=== PATIENT | female | born 1945 | race Caucasian/White ===

== ENCOUNTER 2016-09-08 09:22 | Outpatient (CLI) ==
[2014-12-14 20:33] VITALS: BMI 19.9
[2016-09-08 09:40] LABS: BILIRUBIN,URINE 3+ (NEGATIVE); KETONES,URINE Trace (NEGATIVE); LEUKOCYTE ESTERASE ,URINE 1+ (NEGATIVE); NITRITE,URINE Negative (NEGATIVE); PROTEIN,URINE 2+ (NEGATIVE); URINE, BLOOD Trace-intact (NEGATIVE)
[2016-09-08 09:50] LABS: ADD URINE MICROSCOPIC YES
[2016-09-08 09:55] LABS: BACTERIA,URINE 1+ (NOT PRESENT)
[2016-09-08 14:24] LABS: HEMATOCRIT 42.4 % (37.0-47.0); MEAN CORPUSCULAR HEMOGLOBIN 32.7 pg (27.0-31.0); MEAN CORPUSCULAR HGB CONC 35.4 (31.8-35.4); MEAN CORPUSCULAR VOLUME 92.4 fl (81.0-99.0); PLATELET COUNT 224 10^3/uL (140-440); RED BLOOD COUNT 4.59 10^6/ul (4.20-5.40); WHITE BLOOD COUNT 6.14 K/ul (4.6-10.2)
[2016-09-08 14:36] LABS: ANISOCYTOSIS NOT PRESENT (NOT PRESENT)
[2016-09-08 14:55] LABS: ALBUMIN 3.5 g/dL (3.4-5.0); ALBUMIN/GLOBULIN RATIO 0.9; ANION GAP 14.6; BILIRUBIN,TOTAL 4.32 mg/dL (0.00-1.20); BUN/CREATININE RATIO 12.17; CALCIUM 9.5 mg/dL (8.2-10.2); CREATININE 1.15 mg/dL (0.60-1.30); POTASSIUM 3.6 mmol/L (3.5-5.10); TOTAL PROTEIN 7.4 g/dL (5.8-8.1)
--- NOTE | 2016-09-08 15:02 | CT ---
EXAM: CT abdomen pelvis without contrast HISTORY: Abdominal pain most pronounced in the right lower quadrant. Patient with history of hyste rectomy and appendectomy. COMPARISON: Chest x-ray 11/29/2015 TECHNIQUE: Serial axial images of the abdomen pelvis were performed from the lung bases through the inferior pelvis without contrast. These were viewed in multiple planes. FINDINGS: Lung bases demonstrate minimal airway thickening and nodular ground-glass in the right lo wer lobe. Evaluation is limited due to lack of contrast. 0.8 cm in diameter low attenuation lesion in the alireza er is identified measuring 15 HU. Spleen is unremarkable. The adrenal glands are unremarkable. A 0.4 cm nonobstructing stone in the left kidney. The gallbladder demonstrates mild wall thickening. Small bowel in the abdomen pelvis is unremarkable. The colon demonstrates diverticulosis without di verticulitis. Urinary bladder is distended. There is degenerative disease of the spine. There is moderate to severe atherosclerotic disease. IMPRESSION: 1. There is thickening of the gallbladder wall with no calcified stone identified. Dedicated gallbl adder ultrasound is recommended to further evaluate for cholecystitis. 2. Low attenuation nonspecific lesion in the liver is present. 3. Nonobstructing left renal stone. 4. Diverticulosis without diverticulitis. 5. Moderate to severe atherosclerotic disease and degenerative disease of the spine.
== END 2016-09-08 09:23 | disposition home or self-care (01) ==
LOC: LAB 09:22
PROVIDERS: ATTEND General Practice
DX: R10.9 Unspecified abdominal pain (principal); R30.0 Dysuria; R33.9 Retention of urine, unspecified
CPT/HCPCS: 36415; 80053; 81001; 85007; 85025; 87086

== ENCOUNTER 2016-09-08 17:45 | Inpatient (IN) ==
[2016-09-08 18:11] VITALS: BMI 18.9
[2016-09-08] MEDS: D5%-1/2NS-KCL 20 MEQ/L IV SOL 1,000 ML IV SCH (20:06)
[2016-09-08 20:17] LABS: BILIRUBIN,URINE 3+ (NEGATIVE); KETONES,URINE Trace (NEGATIVE); LEUKOCYTE ESTERASE ,URINE Trace (NEGATIVE); NITRITE,URINE Negative (NEGATIVE); PH,URINE 5.5 (5-9); PROTEIN,URINE 2+ (NEGATIVE); URINE, BLOOD Trace-lysed (NEGATIVE)
[2016-09-08 20:18] LABS: ALBUMIN 3.5 g/dL (3.4-5.0); BILIRUBIN,DIRECT 3.19 mg/dL (0.00-0.30); BILIRUBIN,TOTAL 3.89 mg/dL (0.00-1.20); TOTAL PROTEIN 7.4 g/dL (5.8-8.1)
[2016-09-08 20:23] LABS: HIV INTERNAL QC INTERNAL QC VALID; HIV-1 p24 ANTIGEN SCREEN NEGATIVE (NEGATIVE); HIV-1/2 ANTIBODY SCREEN NEGATIVE (NEGATIVE)
[2016-09-08 20:23] LABS: ADD URINE MICROSCOPIC YES
[2016-09-08 20:24] LABS: BACTERIA,URINE 1+ (NOT PRESENT)
[2016-09-08 20:27] LABS: COCAIN SCREEN,URINE NEGATIVE (NEGATIVE)
--- NOTE | 2016-09-08 22:08 | DI ---
EXAM: PA and lateral views of the chest. HISTORY: Jaundice. FINDINGS: Comparison made with Chest x-ray of 11/29/2015. There is kyphosis of the thoracic spine. T he cardiac silhouette and pulmonary vasculature are within normal limits. The costophrenic angles a re clear. No infiltrate or consolidation. There is left apical scarring. Impression: No acute cardiopulmonary disease. Stable left apical scarring.
[2016-09-09 04:57] LABS: BASOPHILS # (AUTO) 0.1 K/uL (0-0.2); BASOPHILS % (AUTO) 1.2 % (0.0-3.0); EOSINOPHILS # (AUTO) 0.5 K/ul (0.0-0.7); EOSINOPHILS % (AUTO) 6.6 % (0.0-7.0); HEMATOCRIT 35.5 % (37.0-47.0); HEMOGLOBIN 12.5 g/dl (12.0-16.0); IMMATURE GRANULOCYTE % (AUTO) 0.3 % (0.0-5.0); LYMPHOCYTES # (AUTO) 3.7 K/uL (0.60-3.4); LYMPHOCYTES % (AUTO) 49.1 (10.0-50.0); MEAN CORPUSCULAR HEMOGLOBIN 32.1 pg (27.0-31.0); MEAN CORPUSCULAR HGB CONC 35.2 (31.8-35.4); MEAN CORPUSCULAR VOLUME 91.3 fl (81.0-99.0); MONOCYTES # (AUTO) 0.8 K/uL (0.4-2.0); MONOCYTES % (AUTO) 10.3 (0-10); NEUTROPHILS # (AUTO) 2.5 K/ul (2.0-6.9); NEUTROPHILS % (AUTO) 32.5; PLATELET COUNT 208 10^3/uL (140-440); RED BLOOD COUNT 3.89 10^6/ul (4.20-5.40); WHITE BLOOD COUNT 7.59 K/ul (4.6-10.2)
[2016-09-09 05:32] LABS: ALBUMIN 2.8 g/dL (3.4-5.0); ALBUMIN/GLOBULIN RATIO 0.88; ANION GAP 12.5; BILIRUBIN,TOTAL 3.55 mg/dL (0.00-1.20); BUN/CREATININE RATIO 14.6; CREATININE 0.89 mg/dL (0.60-1.30); POTASSIUM 3.5 mmol/L (3.5-5.10)
[2016-09-09] MEDS: D5%-1/2NS-KCL 20 MEQ/L IV SOL 1,000 ML IV SCH ×2 (07:42→21:18)
[2016-09-09] MEDS ORDERED: MAGNESIUM OXIDE 250 MG PO SCH (09:00)
[2016-09-09] MEDS ORDERED: NON-FORMULARY MEDICATION (Cyanocobalamin (Vitamin B-12) [Vitamin B-12] 1,000 MCG) PO SCH ×22 (09:00)
[2016-09-09] MEDS ORDERED: NON-FORMULARY MEDICATION (Calcium Carbonate/Vitamin D3 [Calcium 600-Vit D3 200 Tablet] 1 E PO SCH (09:00)
[2016-09-09] MEDS ORDERED: POTASSIUM GLUCONATE 500 MG PO SCH (09:00)
[2016-09-09] MEDS ORDERED: ZOFRAN 4 MG/2 ML IVP STA (14:24)
[2016-09-09] MEDS ORDERED: ROCEPHIN ONE (14:31)
[2016-09-09] MEDS ORDERED: SODIUM CHLORIDE 50 ML IV ONE (14:34)
[2016-09-09] MEDS: ROCEPHIN 1 GM in SODIUM CHLORIDE 50 ML IV SCH (14:34)
[2016-09-09] MEDS: ZITHROMAX 500 MG in SODIUM CHLORIDE 250 ML IV SCH (15:17)
[2016-09-09 18:48] LABS: AMYLASE 105 U/L (25-115); LIPASE 184 U/L (8-78)
[2016-09-09 18:52] LABS: PARTIAL THROMBOPLASTIN TIME 24.8 SEC (23.9-40.0); PROTHROMBIN TIME 10.4 SEC (9.3-11.0)
[2016-09-10 05:31] LABS: HEMOGLOBIN 12.6 g/dl (12.0-16.0); MEAN CORPUSCULAR HEMOGLOBIN 32.4 pg (27.0-31.0); PLATELET COUNT 222 10^3/uL (140-440); RED BLOOD COUNT 3.89 10^6/ul (4.20-5.40); WHITE BLOOD COUNT 6.72 K/ul (4.6-10.2)
[2016-09-10 05:36] LABS: ANISOCYTOSIS NOT PRESENT (NOT PRESENT)
[2016-09-10 05:55] LABS: ALBUMIN 2.7 g/dL (3.4-5.0); ALBUMIN/GLOBULIN RATIO 0.84; ANION GAP 11.6; BILIRUBIN,TOTAL 2.25 mg/dL (0.00-1.20); BUN/CREATININE RATIO 11.29; CALCIUM 8.7 mg/dL (8.2-10.2); CREATININE 0.62 mg/dL (0.60-1.30); POTASSIUM 3.6 mmol/L (3.5-5.10); TOTAL PROTEIN 5.9 g/dL (5.8-8.1)
[2016-09-10] MEDS: ROCEPHIN 1 GM in SODIUM CHLORIDE 50 ML IV SCH (08:16)
[2016-09-10] MEDS: D5%-1/2NS-KCL 20 MEQ/L IV SOL 1,000 ML IV SCH ×2 (08:16→22:03)
[2016-09-10] MEDS: ZITHROMAX 500 MG in SODIUM CHLORIDE 250 ML IV SCH (09:20)
--- NOTE | 2016-09-10 10:56 | US ---
EXAM: Abdominal ultrasound limited HISTORY: Hepatitis COMPARISON: CT abdomen pelvis 09/08/2016 TECHNIQUE: Sonographic and limited Doppler evaluation of the right upper quadrant was performed. FINDINGS: The liver is normal in echogenicity and measures 14.4 cm. There is an anechoic right hepa tic cyst measuring 0.8 x 1.0 x 1.1 cm. The portal vein is patent. The gallbladder demonstrates mild ly thickened folds with questionable polyps versus adherent sludge. The gallbladder wall measures 0 .5 cm in thickness. Common bile duct is unremarkable and measures 1.1 cm in diameter. The pancreas demonstrates a dilated pancreatic duct. There is no common duct or pancreatic duct stone identified . The right kidney measures 11.5 x 4.1 x 4.5 cm with cortex measuring 0.8%. There is no obstructive uropathy. IMPRESSION: 1. Pancreatic duct and common ducts are enlarged with no visualized stone or obstruction identified . 2. Gallbladder wall thickening and thickened folds with questionable area of polyp versus adherent sludge. Findings may represent changes from inflammation/infection versus hepatic disease were conge stive heart failure. Please correlate with acute symptomatology. 3. Anechoic right hepatic cyst. If further evaluation is clinically indicated, MRCP may be obtained.
--- NOTE | 2016-09-10 13:21 | NM ---
EXAM: Hepatobiliary imaging HISTORY: Jaundice COMPARISON: Limited abdominal ultrasound performed today shows pancreatic and common duct enlargemen t. Gallbladder wall thickening. TECHNIQUE: Patient was injected 5.3 mCi of technetium 99m Choletec intravenously. Multiple anterior scintigraphic images of the right upper quadrant region of the abdomen were obtained up to 1 hour i nterval. FINDINGS: There is normal visualization of liver and gallbladder. Proximal bile duct appears mildly dilated. There is no intrahepatic ductal dilatation. Activity is present within the small bowel l oops. IMPRESSION: Mildly dilated proximal bile duct without any intrahepatic ductal dilatation. Small bow el activity is visualized. Cystic duct is patent.
--- NOTE | 2016-09-10 14:43 | HP ---
CHIEF COMPLAINT: Color change in her urine, chills on Thursday, five days prior to presentation at the office and also . SOURCE OF HISTORY: Patient. HISTORY OF PRESENT ILLNESS: The patient claimed that she experienced chills Thursday evening and lasted for about 4 hours and needed several blankets to keep her warm. By she went to work and was able to perform her job. She again had chills during the night on . She also had noted that her urine had been changing color and now to yellow to orange. The change in urine color did bring her to the office. She also was complaining of pain in the right side of the abdomen more in the right upper quadrant. The patient indeed at the office had some tenderness. The patient appears to be jaundice in the skin, as well as the subpalate. Labs were then ordered, as well as CT scan of the abdomen and pelvis without contrast. The chemistries showed a markedly elevated transaminase, as well as Alkaline phosphatase and total bilirubin. The patient may have an obstructive type jaundice or an obstructive stage of hepatitis. This patient was advised admission to the hospital for further workup. A CT scan of the abdomen did mention some edema of the gallbladder without any stone visible. The patient denied any fever with these episodes of chills. PAST PERSONAL HISTORY: The patient had pneumonia admitted 12/14/2014. Chronic obstructive pulmonary disease, chronic tobacco use and abuse, persistent. History of low back pain, as well as both hips. Osteoporosis and kyphosis. FAMILY HISTORY: No known family diseases that are hereditary. She does not know very well the family history. MEDICATIONS: Prior to this admission Calcium plus Vitamin D one daily B12 1,000 mcg daily Magnesium Oxide 250 mg daily Potassium Gluconate 500 mg daily Tramadol 50 mg tablet three times a day as needed [place]'s Wort 150 mg capsule daily DRUG ALLERGIES: No known drug allergies. REVIEW OF SYSTEMS: CONSTITUTIONAL: The patient had chills, but no fever on last Thursday night and . The patient presented to the office on Thursday09/08/2016 and subsequently was admitted. She had some fatigue. 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 VISUAL: Denies any blurred vision, double or transient loss of vision. AUDITORY: Hearing is compromised, but is able to hear adequately. No pain and no drainage, no tinnitus. RESPIRATORY: The patient has cough, gurgling, probably from smoking and COPD. CARDIOVASCULAR: Denies any chest pain or chest oppression. GASTROINTESTINAL: Appetite appears to be maintained. No nausea or vomiting. GENITOURINARY: Changes in color, but denies any pain or frequency of urination. MUSCULOSKELETAL: The patient has lumbar pain, as well as thoracic pain, as well as hips. These are chronic problems. ENDOCRINE: Negative. HEMATOLOGIC: No history of prolonged bleeding. PSYCHIATRIC: Affect appears to be normal. PHYSICAL EXAMINATION: GENERAL: 71 year old female admitted to the hospital because of chills on Thursday evening, as well as . The patient had elevated transaminase, as well at total bilirubin and alkaline phosphatase. CT scan showed thickening of the gallbladder wall with no stones identified. Ultrasound of the gallbladder would be pursued, including a hepatobiliary scan to see if there is any obstruction. VITAL SIGNS: On admission, temperature 97.8, pulse 87, blood pressure 171/85, left and 170/77 right. Respiratory rate 18, oxygen saturation 97 on room air. 4'11", 93 pounds. BMI 11.2. HEAD: Unremarkable. FACE: Symmetrical and equal with no facial weakness. No remarkable tenderness to palpation under pressure in the frontal or maxillary sinus areas. EYES: Pupils equal/reactive to light about 3 mm in size. Sclerae and conjunctivae appears to be somewhat jaundiced. MOUTH: Dentures both upper and lower. The visual subpalate appears to be somewhat yellowish. THROAT: No inflammation, tumors or exudate. NECK: No masses. No bruit. No tenderness. No rigidity. CHEST: Kyphotic with some tenderness to palpation in the vertebral column. LUNGS: Breath sounds are heard in both sides with rales at the right lower base. The right has more diminished breath sounds compared to the left. No expiratory wheezing. HEART: Audible and regular with good tones. No murmurs. ABDOMEN: Flat, soft with tenderness in the upper quadrant more than the lower quadrant. Bowel sounds are active. There is no palpable mass in the right upper quadrant. EXTERNAL GENITALIA: Not examined. RECTAL: Not performed. LOWER EXTREMITIES: Symmetrical and equal with no significant edema in the ankles and feet. Pedal pulses are not palpable. UPPER EXTREMITIES: Symmetrical and equal. ASSESSMENT: 1. HEPATITIS, INFECTIOUS VERSUS COMMON DUCT OBSTRUCTION 2. CHRONIC TOBACCO USE AND ABUSE, PERSISTENT 3. CHRONIC OBSTRUCTIVE PULMONARY DISEASE, SECONDARY TO #2. 4. CHRONIC LUMBAR PAIN, WELL THORACIC MTDD
[2016-09-11 04:45] LABS: BASOPHILS # (AUTO) 0.1 K/uL (0-0.2); BASOPHILS % (AUTO) 1.1 % (0.0-3.0); EOSINOPHILS # (AUTO) 0.3 K/ul (0.0-0.7); EOSINOPHILS % (AUTO) 4.8 % (0.0-7.0); HEMATOCRIT 35.5 % (37.0-47.0); HEMOGLOBIN 12.7 g/dl (12.0-16.0); IMMATURE GRANULOCYTE % (AUTO) 0.2 % (0.0-5.0); LYMPHOCYTES # (AUTO) 3.1 K/uL (0.60-3.4); MEAN CORPUSCULAR HEMOGLOBIN 32.4 pg (27.0-31.0); MEAN CORPUSCULAR HGB CONC 35.8 (31.8-35.4); MEAN CORPUSCULAR VOLUME 90.6 fl (81.0-99.0); MONOCYTES # (AUTO) 0.7 K/uL (0.4-2.0); MONOCYTES % (AUTO) 9.9 (0-10); NEUTROPHILS # (AUTO) 2.5 K/ul (2.0-6.9); PLATELET COUNT 278 10^3/uL (140-440); RED BLOOD COUNT 3.92 10^6/ul (4.20-5.40); WHITE BLOOD COUNT 6.64 K/ul (4.6-10.2)
[2016-09-11 05:13] LABS: ALBUMIN 2.8 g/dL (3.4-5.0); ALBUMIN/GLOBULIN RATIO 0.85; ANION GAP 10.6; BILIRUBIN,TOTAL 1.6 mg/dL (0.00-1.20); BUN/CREATININE RATIO 12.28; CALCIUM 8.9 mg/dL (8.2-10.2); CREATININE 0.57 mg/dL (0.60-1.30); POTASSIUM 3.6 mmol/L (3.5-5.10); TOTAL PROTEIN 6.1 g/dL (5.8-8.1)
[2016-09-11] MEDS: ROCEPHIN 1 GM in SODIUM CHLORIDE 50 ML IV SCH (08:03)
[2016-09-11] MEDS: ZITHROMAX 500 MG in SODIUM CHLORIDE 250 ML IV SCH (09:37)
--- NOTE | 2016-09-11 11:19 | PN ---
DATE OF VISIT: 09/09/16 The patient, today, is alert and had a good meal, but did complain of nausea after eating her lunch. LUNGS: Her lungs has rales at the right lower base and the breath sounds are diminished more on that side. No wheezing. HEART: Audible and regular. 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 Bowel sounds are active. LOWER EXTREMITIES: Unremarkable. No tenderness in the calf muscles. VITAL SIGNS: Today at 1:36 p.m. showed a temperature of 98.2, pulse 64, blood pressure 132/74, respiratory rate 16, oxygen saturation 96 at room air. Total bilirubin is down to 3.55 from 3.89. AST 552 from 754. ALT 595 from 754. Alkaline phosphatase 580 from 690. The patient had improved somewhat and she is still afebrile. She has some nausea, but no significant increase of pain and no chills. Another blood culture will be obtained today and this patient will be placed on antibiotic consisting of Rocephin, as well as Zithromax. She is scheduled to have an ultrasound of the gallbladder tomorrow and will also schedule for a hepatobiliary scan. The scan should show whether she has a cystic duct obstruction, if not then the other reason for the yellow jaundice may be viral. We are still waiting for the results. I hope we will get some results tomorrow. The HIV is negative. I did ask her whether she had any febrile conditions prior to last Thursday and she said, "No". I also asked her if there is anybody at work that had yellow jaundice or fever and the answer was no. There was also no illness in the family. This patient's drug screen is positive for opiates, as well as Benzo and the patient does not list any medication that would give that positive test. The patient will be kept NPO from midnight for the gallbladder ultrasound and possible hepatobiliary scan and will discuss that with the radiologist after the gallbladder ultrasound. This patient will not be fed. JERED
[2016-09-11] MEDS: D5%-1/2NS-KCL 20 MEQ/L IV SOL 1,000 ML IV SCH (13:04)
[2016-09-12] MEDS: D5%-1/2NS-KCL 20 MEQ/L IV SOL 1,000 ML IV SCH ×2 (02:06→17:57)
[2016-09-12] MEDS: ROCEPHIN 1 GM in SODIUM CHLORIDE 50 ML IV SCH (09:10)
[2016-09-12] MEDS: ZITHROMAX 500 MG in SODIUM CHLORIDE 250 ML IV SCH (10:21)
[2016-09-12 13:13] LABS: ALBUMIN 2.9 g/dL (3.4-5.0); BILIRUBIN,DIRECT 0.57 mg/dL (0.00-0.30); BILIRUBIN,TOTAL 0.94 mg/dL (0.00-1.20); TOTAL PROTEIN 6.8 g/dL (5.8-8.1)
[2016-09-13 04:51] LABS: BASOPHILS # (AUTO) 0.1 K/uL (0-0.2); BASOPHILS % (AUTO) 1.7 % (0.0-3.0); EOSINOPHILS # (AUTO) 0.5 K/ul (0.0-0.7); EOSINOPHILS % (AUTO) 7.6 % (0.0-7.0); HEMATOCRIT 33.4 % (37.0-47.0); HEMOGLOBIN 11.5 g/dl (12.0-16.0); IMMATURE GRANULOCYTE % (AUTO) 0.3 % (0.0-5.0); LYMPHOCYTES # (AUTO) 2.9 K/uL (0.60-3.4); LYMPHOCYTES % (AUTO) 40.6 (10.0-50.0); MEAN CORPUSCULAR HEMOGLOBIN 32.3 pg (27.0-31.0); MEAN CORPUSCULAR HGB CONC 34.4 (31.8-35.4); MEAN CORPUSCULAR VOLUME 93.8 fl (81.0-99.0); MONOCYTES # (AUTO) 0.9 K/uL (0.4-2.0); MONOCYTES % (AUTO) 12.6 (0-10); NEUTROPHILS # (AUTO) 2.7 K/ul (2.0-6.9); NEUTROPHILS % (AUTO) 37.2; PLATELET COUNT 298 10^3/uL (140-440); RED BLOOD COUNT 3.56 10^6/ul (4.20-5.40); WHITE BLOOD COUNT 7.14 K/ul (4.6-10.2)
[2016-09-13] MEDS: D5%-1/2NS-KCL 20 MEQ/L IV SOL 1,000 ML IV SCH (04:55)
[2016-09-13 05:10] LABS: ALBUMIN 2.7 g/dL (3.4-5.0); BILIRUBIN,DIRECT 0.58 mg/dL (0.00-0.30); BILIRUBIN,TOTAL 0.92 mg/dL (0.00-1.20); TOTAL PROTEIN 5.6 g/dL (5.8-8.1)
[2016-09-13] MEDS: ROCEPHIN 1 GM in SODIUM CHLORIDE 50 ML IV SCH (08:29)
[2016-09-13 14:04] VITALS: BP 136/61; TEMP 97.6
--- NOTE | 2016-09-18 12:44 | DS ---
PATIENT IDENTIFICATION: 71 year old female was seen at the office on the day of admission complaining of her urine changing colors, yellow to brownish in color without any pain. The patient in the course of examination appears to be jaundiced and with some tenderness in the right side of the abdomen, more on the right upper quadrant. The patient was sent for CBC, plus chemistry which showed a markedly elevated total bilirubin 4.32, AST 746, ALT 755, alkaline phosphatase 711. WBC was normal. Hemoglobin and hematocrit normal. Chest x-ray showed no acute pulmonary disease. CT scan of the abdomen and pelvis without contrast showed gallbladder thickening with no calcified stones identified. Ultrasound of the gallbladder obstructing left renal stone, diverticulosis without diverticulitis and severe atherosclerotic disease. The patient was advised admission on account of the abnormal findings and the patient consented. HOSPITAL COURSE: The patient on admission was given a clear liquid diet. She also was given Dextrose 5% in 1/2 saline with 20 KCL to run at 83 cc per hour. IV was continued. The patient on the following day developed some nausea and was given Zofran one time. She had abdominal ultrasound in particular the gallbladder on 09/10/2016. Pancreatic and common bile duct was enlarged with no visualized stone or obstruction. Gallbladder wall thickening and thickened folds with questionable area of polyp versus adherent sludge. Findings may represent inflammation versus hepatic disease consider congestive heart failure. The patient also has a right hepatic cyst. Repeat liver chemistry showed decreasing total bilirubin, AST, ALT and alkaline phosphatase. PT and PTT are normal. WBC remained essentially normal. The pain or discomfort in the right side of the abdomen is decreasing and the tenderness is decreasing. The patient was placed on a full liquid diet, low fat. On the patient was given a regular diet, low fat. The hepatitis panel for A, B and C were negative. The results were discussed with the patient. The patient's vital signs remained stable and she afebrile throughout the hospital stay and this patient was given IV Rocephin, as well as Zithromax since symptoms presented as possible bacteremia because of chills on Thursday and night. The blood cultures remained negative. Urine culture also had no growth. The patient continued to improve and the pain was getting less and the patient was feeling much better the day before and the tenderness in the upper abdomen is much less. She denies any nausea or any abdominal discomfort. The patient, today 09/13/2016, is alert, afebrile. VITAL SIGNS: At 2 p.m. showed a temperature of 97.6, pulse 71, blood pressure 131/61, respiratory rate 20, oxygen saturation 96 at room air. GENERAL: Her color is good, not dyspneic, nor tachypneic. LUNGS: Clear to auscultation in both sides. HEART: Normal sinus rhythm. ABDOMEN: No remarkable tenderness. There is still some fullness in the right upper quadrant to palpation. Bowel sounds are active. LOWER EXTREMITIES: No edema. Pedal pulses are still hard to find. The total bilirubin has returned to normal since yesterday and the direct bilirubin is still slightly elevated at 158 and 0.57 yesterday. AST is 64, ALT is 210 and alkaline phosphatase is 398. Cytomegaly virus IGG antibody is greater than 10 positive, but IGM is less than 30-negative. No results of the Pedro-Caballero virus at this point. The patient is instructed to not take the [place]'s Wart and avoid taking any Tylenol for now. She may go back to work if she feels okay and she should see me this coming Thursday. I had mentioned yesterday about a referral to a surgeon for possible evaluation and the patient does not desire any surgery if it is not necessary. We will make that decision during the course of the follow up. I believe the patient's problems may have been common duct obstruction by sludge, which had probably passed through the sphincter since the hepatitis panels are negative. There is some changes in the gallbladder seemed to indicate some infection. The Hepatobiliary scan was essentially normal. FINAL DIAGNOSES: 1. HEPATITIS SECONDARY TO COMMON DUCT OBSTRUCTION WITH SPONTANEOUS RESOLUTION PROBABLE 2. CHRONIC TOBACCO USE AND ABUSE, PERSISTENT 3. CHRONIC OBSTRUCTIVE PULMONARY DISEASE 4. CHRONIC LUMBAR PAIN, WELL THORACIC 5. KYPHOSIS THORACIC SPINE PROGNOSIS: Guarded. The patient is to see me this coming Thursday and I did advise her to call the office Thursday for the time Thursday. She was further advised to come back to the emergency room if she recurrence of the problem. JERED
--- NOTE | 2016-09-18 13:20 | PN ---
DATE OF VISIT: 09/10/16 The patient, today, is alert, oriented times four, not dyspneic, nor tachypneic. The patient did undergo gallbladder ultrasound today, as well as Hepatobiliary scan. Gallbladder ultrasound showed pancreatic duct and common duct are enlarged with no visualized stone or obstruction. Gallbladder wall thickening and thickened folds, questionable area of polyp versus adherent sludge. An anechoic right hepatic cyst. Hepatobiliary scan was interpreted as mildly dilated proximal bile duct without any intrahepatic ductal dilatations. Small bowel activity is visualized. Cystic duct is patent. The radiologist mentioned a normal visualization of the liver and gallbladder. The patient denied any remarkable pain. ABDOMEN: Flat and soft with some tenderness in the right upper quadrant, but less. Bowel sounds were active. HEART: Normal sinus rhythm. I did advise the patient that the test were not indicative of any blockage in her gallbladder or common bile duct to account for the elevated liver enzymes and yellow pigment. The test results for hepatitis are still not in and will probably take another two days to get the results. I hopefully can get some results sometime tomorrow afternoon and would call the reference lab to get that. In the meantime, she will be given a full liquid low fat diet. I also mentioned that one of her enzymes that is from the pancreas is elevated and this might have something to contribute to the yellow jaundice. The BNP is normal. I told her that the enzymes are decreasing, but very slow.It appears that this patient has a viral hepatitis in the obstructive stage since the alkaline phosphatase still is elevated. The total bilirubin is now down to 2.25 from 3.89. AST 393 from 754 and ALT 533 from a high of 754. It was also lower yesterday and much lower today. The alkaline phosphatase is down to 544 from 690 and then 580. We are awaiting results of the hepatitis panel. [facility]
--- NOTE | 2016-09-18 13:50 | PN ---
DATE OF VISIT: 09/11/16 The patient was seen in the evening about 6 p.m. The patient was alert and claims that her abdomen is feeling much better and she better. The patient is alert and oriented and does not appear to be ill and not dyspneic, nor tachypneic. LUNGS: Clear to auscultation, although diminished. The patient has kyphosis. HEART: Normal sinus rhythm. ABDOMEN: Soft with no significant tenderness. The tenderness before is much less and bowel sounds are active. LOWER EXTREMITIES: No tenderness in the calf muscles. VITAL SIGNS: At 2 p.m. on 09/11/2016 showed a temperature of 98.4, oral. Pulse 61, blood pressure 152/58, respiratory rate 20, oxygen saturation 94 at room air. The WBC is normal. The MCH and MCHC is elevated. Electrolytes normal. E GFR 105, total bilirubin 1.60. AST 205, ALT 408, alkaline phosphatase 478. All of these are lower from initial determination. Lipase is down to 81, near normal, upper normal 78. Amylase normal. The hepatitis C is still pending at this time. The A and B were negative. MTDD
--- NOTE | 2016-09-18 14:04 | PN ---
DATE OF VISIT: 09/12/16 The patient, today, is alert and feeling better. VITAL SIGNS: At 2 p.m. showed a temperature of 98.1 and the patient had been afebrile throughout her hospital stay. Pulse 78, blood pressure 142/53, respiratory rate 18, oxygen saturation 98 at room air. The liver panel now shows a normal total bilirubin at 0.94, direct is still slightly elevated at 0.57 with a normal 0.30. AST is now 96 from 754. ALT 277 from 754. Alkaline phosphatase 48 from 690. The hepatitis A, B and C are negative. In retrospect, this patient may have had common duct obstruction by sludge which was released spontaneously. The abdominal ultrasound showed pancreatic duct and common ducts are enlarged with nonvisualized stone or obstruction identified. Gallbladder wall thickening and thickened folds with questionable area of polyp versus adherence sludge. Findings may be due to inflammation versus hepatic disease vs congestive heart failure with hepatic disease. Small right hepatic cyst. The patient's BNP was normal, so it is unlikely that she has congestive heart failure, more so that her lungs are clear and she is not dyspneic, nor tachypneic. Gathering the evidence together and the findings, this patient may have had an obstruction of the common duct secondary to sludge which was either excreted and showed improvement of the hepatitis. I ordered Cytomegaly virus plus Pedro-Caballero to see if there is any possibility that these two viruses has done the liver problems. This patient probably would be referred to a general surgeon for possible cholecystectomy and cholangiography. She might benefit with an endoscopic retrograde sphincterotomy if there are no stones. We will discuss that with the patient. We will continue the Rocephin until tomorrow and see. The Zithromycin will be discontinued today. MTDD
== END 2016-09-13 15:00 | disposition home or self-care (01) | DRG 445 ==
LOC: MEDSURG B 17:45
PROVIDERS: ADMIT General Practice; ATTEND General Practice
DX: K83.1 Obstruction of bile duct (principal); B17.9 Acute viral hepatitis, unspecified; K76.89 Other specified diseases of liver; J44.9 Chronic obstructive pulmonary disease, unspecified; G89.29 Other chronic pain; M54.5 Low back pain; M54.6 Pain in thoracic spine; M40.204 Unspecified kyphosis, thoracic region; F11.90 Opioid use, unspecified, uncomplicated; F15.90 Other stimulant use, unspecified, uncomplicated; F17.200 Nicotine dependence, unspecified, uncomplicated; R10.9 Unspecified abdominal pain; R30.0 Dysuria; R33.9 Retention of urine, unspecified; Z79.899 Other long term (current) drug therapy
CPT/HCPCS: 36415; 80053; 80074; 80076; 80306; 81001; 82150; 83690; 83880; 84145; 85007; 85025; 85610; 85730; 86644; 86645; 86663; 86664; 87040; 87086; 93005; 93010

== ENCOUNTER 2016-09-16 15:45 | Outpatient (CLI) ==
[2016-09-16 18:02] LABS: ALBUMIN 3.4 g/dL (3.4-5.0); BILIRUBIN,DIRECT 0.51 mg/dL (0.00-0.30); BILIRUBIN,TOTAL 0.68 mg/dL (0.00-1.20)
== END 2016-09-16 15:46 | disposition home or self-care (01) ==
LOC: LAB 15:45
PROVIDERS: ATTEND General Practice
DX: R74.8 Abnormal levels of other serum enzymes (principal); R74.0 Nonspecific elevation of levels of transaminase and lactic acid dehydrogenase [LDH]
CPT/HCPCS: 36415; 80076

== ENCOUNTER 2016-10-03 08:36 | Outpatient (CLI) ==
[2016-10-03 12:48] LABS: BASOPHILS # (AUTO) 0.1 K/uL (0-0.2); BASOPHILS % (AUTO) 1.4 % (0.0-3.0); EOSINOPHILS # (AUTO) 0.3 K/ul (0.0-0.7); EOSINOPHILS % (AUTO) 5.3 % (0.0-7.0); HEMATOCRIT 36.6 % (37.0-47.0); HEMOGLOBIN 12.3 g/dl (12.0-16.0); IMMATURE GRANULOCYTE % (AUTO) 0.2 % (0.0-5.0); LYMPHOCYTES # (AUTO) 2.1 K/uL (0.60-3.4); LYMPHOCYTES % (AUTO) 35.6 (10.0-50.0); MEAN CORPUSCULAR HEMOGLOBIN 32.1 pg (27.0-31.0); MEAN CORPUSCULAR HGB CONC 33.6 (31.8-35.4); MEAN CORPUSCULAR VOLUME 95.6 fl (81.0-99.0); MONOCYTES # (AUTO) 0.7 K/uL (0.4-2.0); MONOCYTES % (AUTO) 11.7 (0-10); NEUTROPHILS # (AUTO) 2.7 K/ul (2.0-6.9); NEUTROPHILS % (AUTO) 45.8; PLATELET COUNT 312 10^3/uL (140-440); RED BLOOD COUNT 3.83 10^6/ul (4.20-5.40); WHITE BLOOD COUNT 5.81 K/ul (4.6-10.2)
[2016-10-03 13:05] LABS: BILIRUBIN,URINE Negative (NEGATIVE); KETONES,URINE Negative (NEGATIVE); LEUKOCYTE ESTERASE ,URINE Trace (NEGATIVE); NITRITE,URINE Negative (NEGATIVE); PH,URINE 6.5 (5-9); PROTEIN,URINE Negative (NEGATIVE); URINE, BLOOD Negative (NEGATIVE)
[2016-10-03 13:07] LABS: ALBUMIN 3.5 g/dL (3.4-5.0); ALBUMIN/GLOBULIN RATIO 1.03; ANION GAP 16.7; BILIRUBIN,TOTAL 0.59 mg/dL (0.00-1.20); BUN/CREATININE RATIO 8.45; CALCIUM 9.7 mg/dL (8.2-10.2); CREATININE 0.71 mg/dL (0.60-1.30); POTASSIUM 3.7 mmol/L (3.5-5.10); TOTAL PROTEIN 6.9 g/dL (5.8-8.1)
[2016-10-03 13:14] LABS: ADD URINE MICROSCOPIC YES
== END 2016-10-03 08:37 | disposition home or self-care (01) ==
LOC: LAB 08:36
PROVIDERS: ATTEND General Practice
DX: R09.89 Other specified symptoms and signs involving the circulatory and respiratory systems (principal); K21.9 Gastro-esophageal reflux disease without esophagitis; E55.9 Vitamin D deficiency, unspecified; Z79.899 Other long term (current) drug therapy
CPT/HCPCS: 36415; 80053; 81001; 85025

== ENCOUNTER 2016-10-06 16:31 | Outpatient (CLI) | END 2016-10-06 16:32 | disposition home or self-care (01) | LOC: LAB 16:31 | PROVIDERS: ATTEND General Practice | DX: R76.0 Raised antibody titer (principal) | CPT/HCPCS: 36415; 86664 ==

== ENCOUNTER 2016-12-05 13:27 | Outpatient (CLI) ==
[2016-12-05 13:39] LABS: BASOPHILS # (AUTO) 0.1 K/uL (0-0.2); BASOPHILS % (AUTO) 1.5 % (0.0-3.0); EOSINOPHILS # (AUTO) 0.3 K/ul (0.0-0.7); EOSINOPHILS % (AUTO) 4.1 % (0.0-7.0); HEMATOCRIT 37.2 % (37.0-47.0); HEMOGLOBIN 12.6 g/dl (12.0-16.0); IMMATURE GRANULOCYTE % (AUTO) 0.3 % (0.0-5.0); LYMPHOCYTES # (AUTO) 2.1 K/uL (0.60-3.4); LYMPHOCYTES % (AUTO) 34.6 (10.0-50.0); MEAN CORPUSCULAR HEMOGLOBIN 33.5 pg (27.0-31.0); MEAN CORPUSCULAR HGB CONC 33.9 (31.8-35.4); MEAN CORPUSCULAR VOLUME 98.9 fl (81.0-99.0); MONOCYTES # (AUTO) 0.8 K/uL (0.4-2.0); MONOCYTES % (AUTO) 13.8 (0-10); NEUTROPHILS # (AUTO) 2.8 K/ul (2.0-6.9); NEUTROPHILS % (AUTO) 45.7; PLATELET COUNT 295 10^3/uL (140-440); RED BLOOD COUNT 3.76 10^6/ul (4.20-5.40)
[2016-12-05 13:55] LABS: ALBUMIN 3.6 g/dL (3.4-5.0); ALBUMIN/GLOBULIN RATIO 1.03; ANION GAP 15.8; BILIRUBIN,TOTAL 0.21 mg/dL (0.00-1.20); BUN/CREATININE RATIO 14.86; CALCIUM 9.6 mg/dL (8.2-10.2); CREATININE 0.74 mg/dL (0.60-1.30); POTASSIUM 3.8 mmol/L (3.5-5.10); TOTAL PROTEIN 7.1 g/dL (5.8-8.1)
[2016-12-05 14:21] LABS: BILIRUBIN,URINE Negative (NEGATIVE); KETONES,URINE Negative (NEGATIVE); LEUKOCYTE ESTERASE ,URINE Negative (NEGATIVE); NITRITE,URINE Negative (NEGATIVE); PROTEIN,URINE Negative (NEGATIVE); URINE, BLOOD Negative (NEGATIVE)
[2016-12-05 14:24] LABS: ADD URINE MICROSCOPIC NO
== END 2016-12-05 13:28 | disposition home or self-care (01) ==
LOC: LAB 13:27
PROVIDERS: ATTEND General Practice
DX: R76.0 Raised antibody titer (principal); E55.9 Vitamin D deficiency, unspecified; K21.9 Gastro-esophageal reflux disease without esophagitis; Z79.899 Other long term (current) drug therapy
CPT/HCPCS: 36415; 80053; 81001; 85025

== ENCOUNTER 2017-01-30 17:10 | Inpatient (IN) ==
[2017-01-30] MEDS ORDERED: NORCO 10-325 PO STA (17:32)
[2017-01-30 17:57] LABS: ADD URINE MICROSCOPIC NO; BILIRUBIN,URINE Negative (NEGATIVE); KETONES,URINE Trace (NEGATIVE); LEUKOCYTE ESTERASE ,URINE Negative (NEGATIVE); NITRITE,URINE Negative (NEGATIVE); PH,URINE 5.5 (5-9); PROTEIN,URINE Negative (NEGATIVE); URINE, BLOOD Negative (NEGATIVE)
[2017-01-30 18:12] LABS: ALBUMIN 3.5 g/dL (3.4-5.0); ALBUMIN/GLOBULIN RATIO 0.95; ANION GAP 14.6; BILIRUBIN,TOTAL 0.22 mg/dL (0.00-1.20); BUN/CREATININE RATIO 20.63; CREATININE 1.26 mg/dL (0.60-1.30); POTASSIUM 4.6 mmol/L (3.5-5.10); TOTAL PROTEIN 7.2 g/dL (5.8-8.1)
--- NOTE | 2017-01-30 18:17 | ED.PDOC ---
General ED Provider: Dr. LYNN COHEN Chief Complaint: Back Pain Stated Complaint: RIGHT FLANK PAIN Time Seen by Physician: 17:17 (3 DAYS RIGHT FLANK PAIN MINIMAL DYSURIA NO BLOOD IN URINE) Mode of Arrival: Walk-In Information Source: Patient Exam Limitations: No limitations [facility] Nursing and Triage Documentation Reviewed and Agree: Yes Musculoskeletal Complaint Exam - Back Pain Complaint/Exam Mechanism of Injury: Reports: No known trauma Onset/Duration: 3 DAYS Symptoms Are: Still present Timing: Constant Episodes Lasting: Days Initial Severity: Mild Current Severity: Mild Location: Reports: Discrete Character: Reports: Aching Aggravating: Reports: None Alleviating: Reports: None Associated Signs and Symptoms: Reports: Flank pain (RIGHT). Denies: Swelling, Redness, Bruising, Fever, Weakness, Numbness, Tingling, Abdominal pain, Bladder incontinence, Bowel incontinence, Weight loss, Pain with weight bearing Related History: Reports: Similar episode TAD Risk Factors: Reports: None AAA Risk Factors: Reports: None Cauda Equina Risk Factors: Reports: None Epidural Abcess Risk Factors: Reports: None Related Surgical History: Reports: None Focal Tenderness: No Paraspinal Muscle Tenderness: No Paraspinal Muscle Spasm: No Scoliosis: No Lordosis: No Kyphosis: No SLR Test: Right Negative, Left Negative Hip Motion Testing Pain: Right Negative, Left Negative Focal Weakness: Present: None Focal Sensory Loss: Present: None Gait: Present: Normal Differential Diagnoses: Strain, Sprain Review of Systems - Review Of Systems Constitutional: Reports: No symptoms Eyes: Reports: No symptoms Ears, Nose, Mouth, Throat: Reports: No symptoms Respiratory: Reports: No symptoms Cardiac: Reports: No symptoms GI: Reports: No symptoms : Reports: Dysuria, Flank pain (RIGHT) Musculoskeletal: Reports: No symptoms Skin: Reports: No symptoms Neurological: Reports: No symptoms Endocrine: Reports: No symptoms Hematologic/Lymphatic: Reports: No symptoms All Other Systems: Reviewed and Negative Past Medical History - Past Medical History Previously Healthy: Yes Endocrine: Reports: None Cardiovascular: Reports: None Respiratory: Reports: Pneumonia Hematological: Reports: None Gastrointestinal: Reports: None Genitourinary: Reports: None Neuro/Psych: Reports: None Musculoskeletal: Reports: None Cancer: Reports: None Last Menstrual Period: N/A - Surgical History General Surgical History: Reports: None - Family History Family History: Reports: Unknown - Social History Smoking Status: Current every day smoker, Heavy tobacco smoker Hx Substance Use: No Alcohol Screening: None - Immunizations Tetanus Shot up to Date: Yes Physical Exam - Physical Exam Appearance: Well-appearing, No pain distress, Well-nourished Eyes: RUSLAN, EOMI, Conjunctiva clear ENT: Ears normal, Nose normal, Oropharynx normal Respiratory: Airway patent, Breath sounds clear, Breath sounds equal, Respirations nonlabored Cardiovascular: RRR, Pulses normal, No rub, No murmur GI/: Soft, Nontender, No masses, Bowel sounds normal, No Organomegaly Musculoskeletal: Normal strength, ROM intact, No edema, No calf tenderness Skin: Warm, Dry, Normal color Neurological: Sensation intact, Motor intact, Reflexes intact, Cranial nerves intact, Alert, Oriented Psychiatric: Affect appropriate, Mood appropriate Critical Care Note - Critical Care Note Total Time (mins): 0 Course - Course Hematology/Chemistry: 01/30/17 17:50 Orders, Labs, Meds: Lab Review 01/30/17 01/30/17 17:31 17:50 Sodium 139 Potassium 4.6 Chloride 102 Carbon Dioxide 27 Anion Gap 14.6 BUN 26 H Creatinine 1.26 Estimated GFR (MDRD) 42.00 BUN/Creatinine Ratio 20.63 Glucose 109 Calcium 10.0 Total Bilirubin 0.22 AST 20 ALT 15 Alkaline Phosphatase 71 Total Protein 7.2 Albumin 3.5 Globulin 3.7 Albumin/Globulin Ratio 0.95 Urine Color Yellow Urine Clarity Clear Urine pH 5.5 Ur Specific [place] 1.020 Urine Protein Negative Urine Glucose (UA) Negative Urine Ketones Trace Urine Blood Negative Urine Nitrite Negative Urine Bilirubin Negative Urine Urobilinogen 0.2 Ur Leukocyte Esterase Negative Orders Category Date Time Status COMPREHENSIVE METABOLIC PANEL Stat LAB 01/30/17 17:50 Completed URINALYSIS C & S IF INDICATED Stat LAB 01/30/17 17:31 Completed Hydrocodone Bit/Acetaminophen [[place] 10-325] MEDS 01/30/17 17:32 Discontinued 1 tab PO ONCE STA CT ABD/PEL WO RENAL STONE PROT Stat RADS 01/30/17 17:32 Taken Medications Discontinued Medications Generic Name Dose Route Start Last Admin Trade Name Freq PRN Reason Stop Dose Admin Acetaminophen/Hydrocodone Bitart 1 tab 01/30/17 17:32 01/30/17 18:01 [place] 10-325 PO 01/30/17 17:33 1 tab ONCE STA Administration Vital Signs: Temp Pulse Resp BP Pulse Ox 01/30/17 17:11 100.9 F H 94 H 20 107/59 L 94 L Departure - Departure Time of Disposition: 19:00 Disposition: HOME SELF-CARE Discharge Problem: Backache Instructions: Low Back Strain (ED), Acute Low Back Pain (ED), Arthralgia (ED), Flank Pain (ED), Back Pain (ED) Condition: Good Pt referred to PMD for follow-up: Yes Additional Instructions: Please call your Family Physician as soon as possible to schedule a follow-up appointment. Prescriptions: Hydrocodone/Acetaminophen [[place] 10-325 Tablet] 1 each PO Q8HR #12 tablet Allergies/Adverse Reactions: Allergies No Known Allergies Allergy (Unverified 12/09/16 15:48) Home Medications: Ambulatory Orders Calcium Carbonate/Vitamin D3 [Calcium 600-Vit D3 200 Tablet] 1 each PO DAILY tab-cap 04/19/15 Cyanocobalamin (Vitamin B-12) [Vitamin B-12] 1,000 mcg PO DAILY 05/08/15 Magnesium Oxide [Magnesium] 250 mg PO DAILY 05/08/15 Potassium Gluconate 500 mg PO DAILY 05/08/15 Hydrocodone/Acetaminophen [[place] 10-325 Tablet] 1 each PO Q8HR #12 tablet Disposition Discussed With: Patient
[2017-01-30 18:24] LABS: BASOPHILS # (AUTO) 0.1 K/uL (0-0.2); BASOPHILS % (AUTO) 0.3 % (0.0-3.0); EOSINOPHILS % (AUTO) 0.2 % (0.0-7.0); HEMATOCRIT 36.1 % (37.0-47.0); HEMOGLOBIN 12.4 g/dl (12.0-16.0); IMMATURE GRANULOCYTE % (AUTO) 0.8 % (0.0-5.0); LYMPHOCYTES # (AUTO) 1.2 K/uL (0.60-3.4); MEAN CORPUSCULAR HEMOGLOBIN 32.5 pg (27.0-31.0); MEAN CORPUSCULAR HGB CONC 34.3 (31.8-35.4); MEAN CORPUSCULAR VOLUME 94.8 fl (81.0-99.0); MONOCYTES # (AUTO) 1.1 K/uL (0.4-2.0); MONOCYTES % (AUTO) 5.2 (0-10); NEUTROPHILS # (AUTO) 17.8 K/ul (2.0-6.9); NEUTROPHILS % (AUTO) 87.5; PLATELET COUNT 291 10^3/uL (140-440); RED BLOOD COUNT 3.81 10^6/ul (4.20-5.40); WHITE BLOOD COUNT 20.39 K/ul (4.6-10.2)
[2017-01-30] MEDS ORDERED: ROCEPHIN IM STA (18:40)
[2017-01-30] MEDS ORDERED: LIDOCAINE HCL 1% SDV SUBCUT STA (18:40)
--- NOTE | 2017-01-30 18:44 | CT ---
EXAM: Noncontrast CT of the abdomen and pelvis HISTORY: Pain COMPARISON: 09/08/2016 TECHNIQUE: Noncontrast CT of the abdomen and pelvis FINDINGS: Right lower lobe patchy consolidation is present. No renal calculi are identified. No right hydronephrosis is seen. No proximal to mid right ureteral calculi identified. The distal right ureter is obscured. A left renal nonobstructing calculus vers us vascular calcification is again seen. No left hydronephrosis is identified. No proximal to mid l eft ureteral calculi are seen. The distal left ureter is obscured. Noncontrast technique limits evaluation of the abdominal viscera. The liver is borderline enlarged at measures 18.3 cm craniocaudal. A 1.2 cm left hepatic lobe probable cyst is again seen. The gallblad jesus is mildly distended. No pericholecystic inflammatory changes are seen. There is mild dilation of the intrahepatic bile ducts. Common bile duct is dilated to 1.3 cm. A splenic calcified granuloma is seen. The unenhanced adrenals are unremarkable. The pancreas appears grossly unremarkable. There is a stable left renal 6 mm hyperdensity, too small to characterize but suggestive of a hemorrhagic cyst. A paucity of abdominal fat somewhat limits evaluation of bowel. Focal debris and gas is seen at the anterior aspect of the second portion of the duodenum measuring 2.0 x 3.0 cm, more prominent than in the previous exam. No abnormal small bowel dilation is seen. Diverticulosis is seen and there is mild wall thickening of the junction of the descending colon and sigmoid colon without gross adjacent inf lammatory changes. There is moderate to large ascending and transverse colonic stool. The appendix is not definitely identified. There is marked calcified atherosclerotic plaque of the aorta with prominent luminal stenosis. There is prominent calcified plaque of the branches of the aorta. No free air or free fluid is seen. Degen erative changes of the spine are noted. IMPRESSION: Right lower lobe pneumonia. No right renal calculi. Left renal calculus versus vascular calcification. No proximal to mid urete ral calculi identified. Obscuration of the distal ureters. No hydronephrosis. Distended gallbladder. Dilated intrahepatic and extrahepatic bile ducts of uncertain etiology. Furth er evaluation is recommended. Focal gas and debris anterior to the second portion of the duodenum, favored to represent increased d istension of a gastric diverticulum. CT with IV and oral is recommended to exclude less likely etiol ogies. Moderate to large colonic stool burden. Diverticulosis. Mild wall thickening of the junction of the descending colon and sigmoid colon is lik nathaniel secondary to underdistension. Mild diverticulitis would be difficult to completely exclude. Extensive atherosclerosis including prominent stenosis of the abdominal aorta.
[2017-01-30] MEDS ORDERED: SOLU-MEDROL 125 MG IVP STA (18:51)
[2017-01-30] MEDS ORDERED: ROCEPHIN 1 GM in SODIUM CHLORIDE 50 ML IV STA (18:53)
[2017-01-30] MEDS ORDERED: ROCEPHIN ONE (19:22)
[2017-01-30 19:24] LABS: ABG PCO2 38.9 mmHg (35-45); ABG PH 7.415 (7.35-7.45)
[2017-01-30 19:25] LABS: ABG BASE EXCESS 0 (-2.0-2.0); ABG HCO3 24.9 (22.0-26.0); ABG TCO2 26 (22.0-28.0)
[2017-01-30] MEDS: SODIUM CHLORIDE 1,000 ML IV SCH ×2 (19:34→20:36)
--- NOTE | 2017-01-30 19:50 | DI ---
Exam: Two x-rays of the chest. Comparison: 09/08/2016. Reason for exam: Pain. FINDINGS: No pneumothorax or pleural effusion. Air space consolidation is seen in the right lower l obe best on the lateral view. The cardiac silhouette is not enlarged. The imaged osseous structures appear grossly unremarkable without acute fracture. There is exaggeration of the thoracic kyphotic curve. Impression: Airspace consolidation in the right lung base consistent with pneumonia or atelectasis. Imaging findi ngs correlate with the CT performed on the same day.
[2017-01-30 20:21] VITALS: BMI 17.9
[2017-01-30] MEDS: SOLU-MEDROL 40 MG IVP SCH (22:15)
[2017-01-30] MEDS ORDERED: DUONEB NEB ONE (23:25)
[2017-01-30] MEDS: DUONEB NEB SCH (23:25)
[2017-01-31] MEDS: DUONEB NEB SCH ×4 (05:19→22:59)
[2017-01-31 06:29] LABS: BASOPHILS % (AUTO) 0.2 % (0.0-3.0); HEMATOCRIT 32.9 % (37.0-47.0); HEMOGLOBIN 11.3 g/dl (12.0-16.0); IMMATURE GRANULOCYTE % (AUTO) 1.8 % (0.0-5.0); LYMPHOCYTES # (AUTO) 1.1 K/uL (0.60-3.4); LYMPHOCYTES % (AUTO) 4.9 (10.0-50.0); MEAN CORPUSCULAR HEMOGLOBIN 32.5 pg (27.0-31.0); MEAN CORPUSCULAR HGB CONC 34.3 (31.8-35.4); MEAN CORPUSCULAR VOLUME 94.5 fl (81.0-99.0); MONOCYTES # (AUTO) 0.3 K/uL (0.4-2.0); MONOCYTES % (AUTO) 1.2 (0-10); NEUTROPHILS # (AUTO) 20.1 K/ul (2.0-6.9); NEUTROPHILS % (AUTO) 91.9; PLATELET COUNT 243 10^3/uL (140-440); RED BLOOD COUNT 3.48 10^6/ul (4.20-5.40)
[2017-01-31 06:30] LABS: WHITE BLOOD COUNT 21.87 K/ul (4.6-10.2)
[2017-01-31 06:51] LABS: ALBUMIN 2.8 g/dL (3.4-5.0); ALBUMIN/GLOBULIN RATIO 0.85; ANION GAP 11.2; BILIRUBIN,TOTAL 0.29 mg/dL (0.00-1.20); BUN/CREATININE RATIO 24.39; CALCIUM 8.9 mg/dL (8.2-10.2); CREATININE 0.82 mg/dL (0.60-1.30); POTASSIUM 4.2 mmol/L (3.5-5.10); TOTAL PROTEIN 6.1 g/dL (5.8-8.1)
[2017-01-31] MEDS: SOLU-MEDROL 40 MG IVP SCH ×2 (08:46→21:08)
[2017-01-31] MEDS: POTASSIUM GLUCONATE 500 MG PO SCH (08:46)
[2017-01-31] MEDS: ZESTRIL PO SCH ×2 (08:46→08:48)
[2017-01-31] MEDS: SODIUM CHLORIDE 1,000 ML IV SCH ×2 (10:10→23:36)
[2017-01-31] MEDS ORDERED: ROCEPHIN ONE (17:24)
[2017-01-31] MEDS: TYLENOL PO PRN (17:29)
[2017-01-31] MEDS ORDERED: SODIUM CHLORIDE 50 ML IV ONE (17:30)
[2017-01-31] MEDS: ROCEPHIN 1 GM in SODIUM CHLORIDE 50 ML IV SCH (17:30)
[2017-01-31] MEDS: LEXAPRO PO SCH (21:08)
[2017-02-01] MEDS: DUONEB NEB SCH ×4 (05:25→23:19)
[2017-02-01 06:17] LABS: BASOPHILS % (AUTO) 0.1 % (0.0-3.0); HEMATOCRIT 29.7 % (37.0-47.0); IMMATURE GRANULOCYTE % (AUTO) 3.9 % (0.0-5.0); LYMPHOCYTES # (AUTO) 0.8 K/uL (0.60-3.4); LYMPHOCYTES % (AUTO) 3.4 (10.0-50.0); MEAN CORPUSCULAR HEMOGLOBIN 32.1 pg (27.0-31.0); MEAN CORPUSCULAR HGB CONC 33.7 (31.8-35.4); MEAN CORPUSCULAR VOLUME 95.2 fl (81.0-99.0); MONOCYTES # (AUTO) 0.8 K/uL (0.4-2.0); MONOCYTES % (AUTO) 3.5 (0-10); NEUTROPHILS # (AUTO) 20.2 K/ul (2.0-6.9); NEUTROPHILS % (AUTO) 89.1; PLATELET COUNT 233 10^3/uL (140-440); RED BLOOD COUNT 3.12 10^6/ul (4.20-5.40); WHITE BLOOD COUNT 22.69 K/ul (4.6-10.2)
[2017-02-01 06:35] LABS: ALBUMIN 2.4 g/dL (3.4-5.0); ALBUMIN/GLOBULIN RATIO 0.73; ANION GAP 11.3; BILIRUBIN,TOTAL 0.1 mg/dL (0.00-1.20); BUN/CREATININE RATIO 22.38; CALCIUM 8.5 mg/dL (8.2-10.2); CREATININE 0.67 mg/dL (0.60-1.30); POTASSIUM 4.3 mmol/L (3.5-5.10); TOTAL PROTEIN 5.7 g/dL (5.8-8.1)
[2017-02-01] MEDS: ROCEPHIN 1 GM in SODIUM CHLORIDE 50 ML IV SCH (10:03)
[2017-02-01] MEDS: POTASSIUM GLUCONATE 500 MG PO SCH (10:03)
[2017-02-01] MEDS: SOLU-MEDROL 40 MG IVP SCH ×2 (10:03→21:23)
[2017-02-01] MEDS: SODIUM CHLORIDE 1,000 ML IV SCH (11:00)
[2017-02-01] MEDS: TYLENOL PO PRN (18:59)
[2017-02-01] MEDS: LEXAPRO PO SCH (21:16)
[2017-02-02] MEDS: DUONEB NEB SCH ×4 (05:23→22:59)
[2017-02-02 05:31] LABS: BASOPHILS % (AUTO) 0.1 % (0.0-3.0); HEMATOCRIT 29.8 % (37.0-47.0); HEMOGLOBIN 10.1 g/dl (12.0-16.0); IMMATURE GRANULOCYTE % (AUTO) 2.8 % (0.0-5.0); LYMPHOCYTES % (AUTO) 6.5 (10.0-50.0); MEAN CORPUSCULAR HEMOGLOBIN 32.5 pg (27.0-31.0); MEAN CORPUSCULAR HGB CONC 33.9 (31.8-35.4); MEAN CORPUSCULAR VOLUME 95.8 fl (81.0-99.0); MONOCYTES # (AUTO) 0.6 K/uL (0.4-2.0); MONOCYTES % (AUTO) 3.5 (0-10); NEUTROPHILS # (AUTO) 13.6 K/ul (2.0-6.9); NEUTROPHILS % (AUTO) 87.1; PLATELET COUNT 238 10^3/uL (140-440); RED BLOOD COUNT 3.11 10^6/ul (4.20-5.40); WHITE BLOOD COUNT 15.59 K/ul (4.6-10.2)
[2017-02-02 05:45] LABS: ALANINE AMINOTRANSFERASE 38 U/L (12-78); ALBUMIN 2.4 g/dL (3.4-5.0); ALBUMIN/GLOBULIN RATIO 0.71; ALKALINE PHOSPHATASE 59 U/L (53-141); ANION GAP 11.4; ASPARTATE AMINO TRANSFERASE 32 U/L (15-37); BLOOD UREA NITROGEN 11 mg/dL (7-18); BUN/CREATININE RATIO 16.92; CALCIUM 8.9 mg/dL (8.2-10.2); CARBON DIOXIDE 23 mmol/L (23-31); CHLORIDE 111 mmol/L (98-107); CREATININE 0.65 mg/dL (0.60-1.30); GLUCOSE 148 mg/dL (82-115); POTASSIUM 4.4 mmol/L (3.5-5.10); SODIUM 141 mmol/L (136-145); TOTAL PROTEIN 5.8 g/dL (5.8-8.1)
[2017-02-02 05:46] LABS: BILIRUBIN,TOTAL < 0.10 mg/dL (0.00-1.20)
[2017-02-02] MEDS: ROCEPHIN 1 GM in SODIUM CHLORIDE 50 ML IV SCH (08:34)
[2017-02-02] MEDS: POTASSIUM GLUCONATE 500 MG PO SCH (08:35)
[2017-02-02] MEDS: SOLU-MEDROL 40 MG IVP SCH ×3 (08:49→20:57)
--- NOTE | 2017-02-02 10:46 | DI ---
EXAM: Chest two view, frontal and lateral views. HISTORY: Right lower lobe consolidation. Follow-up. COMPARISON: 01/30/2017. FINDINGS: Heart size is normal. Atherosclerotic calcifications present. Right lower lobe consolida tion again noted. There is blunting of the right costophrenic angle which is new. Lungs are otherwi se clear without pneumothorax. Degenerative changes seen in the spine. IMPRESSION: Stable right lower lobe consolidation with new small right pleural effusion. Follow-up in 4-6 weeks i s recommended.
--- NOTE | 2017-02-02 10:55 | PCM.PROG ---
Attending Provider: ATTENDING PROVIDER: Dr. DEANA DURBIN This patient is seen with Leigh Garsia, Nurse Practitioner. DATE OF SERVICE: 02/02/17 SUBJECTIVE: This 71 year old WHITE/ F was hospitalized 01/30/17. The patient is sitting in chair, alert. She states she is coughing some. No fever. She has been eating well. REVIEW OF SYSTEMS: CONSTITUTIONAL: No night sweats. No fatigue, malaise, lethargy. No fever or chills. HEENT: Eyes: No visual changes. No eye pain. No eye discharge. ENT: No runny nose. No epistaxis. No sinus pain. No odynophagia. No congestion. RESPIRATORY: Cough and congestion. No hemoptysis. No shortness of breath. CARDIOVASCULAR: No angina symptoms. No CHF symptoms. No atypical chest pain for CAD. No palpitations. No orthopnea.. GASTROINTESTINAL: No abdominal pain. No nausea or vomiting. No diarrhea or constipation. No hematemesis. No hematochezia. GENITOURINARY: No urgency. No frequency. No dysuria. No hematuria. No obstructive symptoms. No discharge. No pain. No significant abnormal bleeding. MUSCULOSKELETAL: No musculoskeletal pain; no joint swelling. NEUROLOGICAL: Awake, alert, oriented to time, place and person. No headache. No neck pain. No syncope. No seizures. No dizziness. PSYCHIATRIC: Not anxious. No depression. No suicidal thoughts. No homicidal thoughts. SKIN: No rash. No lesions. No wounds. ENDOCRINE: No unexplained weight loss. No weight gain. HEMATOLOGIC/LYMPHATIC: No anemia. No purpura. No petechiae. No prolonged or excessive bleeding. No palpable lymph nodes. PHYSICAL EXAMINATION: GENERAL: The patient is awake, alert and oriented, sitting in chair in no distress. VITAL SIGNS: Temperature 97.7 F, Pulse 80, Respiratory Rate 15, BP 141/67, Pulse Ox 98% HEENT: Head normocephalic, atraumatic. Eyes: Extraocular muscles are intact. Pupils are equal, round and reactive to light and accommodation. Ears: No lesions. Nose appeared normal. Throat: No exudate or erythema. NECK: Supple. No JVD, no carotid bruit. No lymphadenopathy or thyromegaly. LUNGS: Diminished breath sounds bilaterally. Clear to auscultation. Percussion note normal. Chest symmetrical. HEART: S1, S2, no S3. No murmurs. No cyanosis or clubbing. No ascites. Pulses: Dorsalis pedis and posterior tibial pulses +1 to +2 both sides. ABDOMEN: Soft. Non-tender. Bowel sounds active. No CVA tenderness. No mass felt. EXTREMITIES: No edema. Full range of motion of all extremities, equal. NEUROLOGIC: No focal deficit. Cranial nerves II through XII are grossly intact. No headache, no double vision or headache. SKIN: Not dry. Intact. Turgor-normal. LYMPHATIC: No palpable lymph nodes/no lymphedema. MUSCULOSKELETAL: Normal joints with no swelling. Muscle tone is normal. LAB REVIEW: 02/02/17 05:14 02/02/17 05:14 02/02/17 05:14: Sodium 141, Potassium 4.4, Chloride 111 H, Carbon Dioxide 23, Anion Gap 11.4, BUN 11, Creatinine 0.65, Estimated GFR (MDRD) 90.00, BUN/ Creatinine Ratio 16.92, Glucose 148 H, Calcium 8.9, Total Bilirubin < 0.10, AST 32, ALT 38, Alkaline Phosphatase 59, Total Protein 5.8, Albumin 2.4 L, Globulin 3.4, Albumin/Globulin Ratio 0.71 02/02/17 05:14: WBC 15.59 H D, RBC 3.11 L, Hgb 10.1 L, Hct 29.8 L, MCV 95.8, MCH 32.5 H, MCHC 33.9, RDW Coeff of Beth 13.3, Plt Count 238, Immature Gran % ( Auto) 2.8, Neut % (Auto) 87.1, Lymph % (Auto) 6.5 L, [place] % (Auto) 3.5, Eos % ( Auto) 0.0, Baso % (Auto) 0.1, Immature Gran # (Auto) 0.4, Neut # 13.6 H, Lymph # 1.0, [place] # 0.6, Eos # 0.0, Baso # 0.0 ASSESSMENT: 1. Right lower lobe pneumonia 2. COPD 3. Smoker PLAN: 1. Repeat chest x-ray 2. Solu-Medrol 40 mg t.i.d. Plan and coordination of the patient's care discussed in the presence of Recreation Professor and nurse. CONDITION: Stable SCRIBED BY: DOM NOLAN Program Management Analyst scribed while in presence of service performed by Dr. Durbin/Leigh Garsia APRN on 02/02/17 ([id number])
[2017-02-02] MEDS: LEXAPRO PO SCH (20:57)
[2017-02-03] MEDS: SOLU-MEDROL 40 MG IVP SCH (04:52)
[2017-02-03 05:35] VITALS: BP 161/75; TEMP 97.9
[2017-02-03] MEDS: DUONEB NEB SCH ×2 (05:46→11:19)
[2017-02-03] MEDS: POTASSIUM GLUCONATE 500 MG PO SCH (09:00)
[2017-02-03] MEDS: ROCEPHIN 1 GM in SODIUM CHLORIDE 50 ML IV SCH (09:18)
--- NOTE | 2017-02-03 10:22 | PCM.PROG ---
Attending Provider: ATTENDING PROVIDER: Dr. DEANA STRONG This patient is seen with Leigh Garsia, Nurse Practitioner. DATE OF SERVICE: 02/03/17 SUBJECTIVE: This 71 year old WHITE/ F was hospitalized 01/30/17. The patient is sitting in chair, alert. She states she is ready to go home. She has been up and about eating well. no fever. REVIEW OF SYSTEMS: CONSTITUTIONAL: No night sweats. No fatigue, malaise, lethargy. No fever or chills. HEENT: Eyes: No visual changes. No eye pain. No eye discharge. ENT: No runny nose. No epistaxis. No sinus pain. No odynophagia. No congestion. RESPIRATORY: Cough and congestion. No hemoptysis. No shortness of breath. CARDIOVASCULAR: No angina symptoms. No CHF symptoms. No atypical chest pain for CAD. No palpitations. No orthopnea.. GASTROINTESTINAL: No abdominal pain. No nausea or vomiting. No diarrhea or constipation. No hematemesis. No hematochezia. GENITOURINARY: No urgency. No frequency. No dysuria. No hematuria. No obstructive symptoms. No discharge. No pain. No significant abnormal bleeding. MUSCULOSKELETAL: No musculoskeletal pain; no joint swelling. NEUROLOGICAL: Awake, alert, oriented to time, place and person. No headache. No neck pain. No syncope. No seizures. No dizziness. PSYCHIATRIC: Not anxious. No depression. No suicidal thoughts. No homicidal thoughts. SKIN: No rash. No lesions. No wounds. ENDOCRINE: No unexplained weight loss. No weight gain. HEMATOLOGIC/LYMPHATIC: No anemia. No purpura. No petechiae. No prolonged or excessive bleeding. No palpable lymph nodes. PHYSICAL EXAMINATION: GENERAL: The patient is awake, alert and oriented, sitting in chair in no distress. VITAL SIGNS: Temperature 97.9 F, Pulse 78, Respiratory Rate 16, BP 161/75, Pulse Ox 93% HEENT: Head normocephalic, atraumatic. Eyes: Extraocular muscles are intact. Pupils are equal, round and reactive to light and accommodation. Ears: No lesions. Nose appeared normal. Throat: No exudate or erythema. NECK: Supple. No JVD, no carotid bruit. No lymphadenopathy or thyromegaly. LUNGS: Diminished breath sounds. Clear to auscultation. Percussion note normal. Chest symmetrical. HEART: S1, S2, no S3. No murmurs. No cyanosis or clubbing. No ascites. Pulses: Dorsalis pedis and posterior tibial pulses +1 to +2 both sides. ABDOMEN: Soft. Non-tender. Bowel sounds active. No CVA tenderness. No mass felt. EXTREMITIES: No edema. Full range of motion of all extremities, equal. NEUROLOGIC: No focal deficit. Cranial nerves II through XII are grossly intact. No headache, no double vision or headache. SKIN: Not dry. Intact. Turgor-normal. LYMPHATIC: No palpable lymph nodes/no lymphedema. MUSCULOSKELETAL: Normal joints with no swelling. Muscle tone is normal. LAB REVIEW: 02/02/17 05:14 02/02/17 05:14 ASSESSMENT: 1. Right lower lobe pneumonia 2. COPD 3. Smoker PLAN: 1. D/C home 2. The patient will followup with Dr. Khalil on 02/10/17 3. Keflex 500 t.i.d. times one week 4. Prednisone 10 mg b.i.d. for 5 days 5. ProAir inhaler two puffs q.4 to 6 hr p.r.n. 6. May return to work on , 02/05/17 7. Smoking cessation advised. Plan and coordination of the patient's care discussed in the presence of Account Manager Employee Benefits and nurse. CONDITION: Stable SCRIBED BY: DOM NOLAN Forging Press Setter Up scribed while in presence of service performed by Dr. Strong/Leigh Garsia APRN on 02/03/17 ([id number])
--- NOTE | 2017-02-03 10:50 | CM.DICTOOL ---
ADMISSION: 01/30/17 19:22 DISCHARGE: February 03, 2017 DATE OF SERVICE: 02/03/17 FINAL DIAGNOSIS Pneumonia, RLL COPD Hypertension GERD Osteoarthritis Tobacco use, smokes 1ppd Hysterectomy Appendectomy LAST VITALS Temp Pulse Resp BP Pulse Ox 97.9 F 78 16 161/75 H 93 L 02/03/17 05:35 02/03/17 05:35 02/03/17 05:35 02/03/17 05:35 02/03/17 05:45 ACTIVE HOME MEDICATIONS Escitalopram Oxalate (Lexapro) 10 mg PO BEDTIME [facility] Last Admin: 02/02/17 20:57 Dose: 10 mg Calcium Carbonate/Vitamin D3 1 tablet daily Last Admin: Magnesium Oxide 250 mg PO Daily Last Admin: Cyanocobalamin (Vitamin B 12) 1000 mcg PO Daily Last Admin: Tramadol HCL 50 mg PO BID PRN Last Admin: Lisinopril 10 mg Daily Last Admin: 01/31/2017 0900 Non-Formulary Medication (Potassium Gluconate [Potassium Gluconate]) 500 mg PO DAILY [facility] Last Admin: 02/02/17 08:35 Dose: Not Given ALLERGIES No Known Allergies Allergy (Unverified 12/09/16 15:48) NEW PRESCRIPTIONS: Keflex 500 mg TID for 7 days Prednisone 10 mg BID for 5 days Take with food ProAir Inhaler 2 puffs every 4-6 hours prn shortness of air. Please use at least twice per day (daily) SMOKING: Advised to stop smoking DISEASE SPECIFIC EDUCATION: Pneumonia Use of Inhalers Short term use of steroids and risk of GI upset and bone dimineralization Prescriptions LAB REVIEW: 02/02/17 05:14 02/02/17 05:14 PLAN: Discharge home Diet: Regular as tolerated Activity: Gradually resume as tolerated. May return to work on , February 05 Avoid smoking or exposure to cigarette smoke Please keep your scheduled appointment with Dr. Khalil on February 10 at the [facility] Continue home medications as listed on nursing discharge information sheet Ms. Pastor is alert and oriented x 3. She is ambulatory in the room and hallway without use of assistive devices. She is independent with transfers and all activities of daily living. She denies pain. She denies shortness of breath at rest or with exertion. She reports a non-productive cough. No abdominal pain or nausea. Meal intakes are good at 75-100%. No skin breakdown, rashes or irritation noted. The patient will be followed in the office by Dr. Khalil on February 10 (scheduled appointment). Dillon Strong MD Leigh Garsia APRN
--- NOTE | 2017-02-03 14:32 | PN ---
DATE OF SERVICE: 02/03/17 SUBJECTIVE: 71 year old white female hospitalized with pneumonia. The patient is being treated with antibiotics, steroids. The patient condition has improved remarkably. Her WBC is 15,000 the patient doesn't have any right lower quadrant pain or right flank pain. The patient will be discharged on Keflex, Prednisone and ProAir. She was strongly advised to quit smoking. Counseling done. To see Dr. Khalil on 02/10/17. The patient is malnourished. Nutrition status discussed with the patient. CONDITION: Stable. TIME SPENT: More than 30 minutes. Plan and coordination of the patient's care discussed in the presence of nurse. JERED
--- NOTE | 2017-02-03 14:33 | PN ---
01/30/17: Level 5 01/31/17: Intermediate 02/01/17: Intermediate 02/02/17: Intermediate 02/03/17: D as in discharge. MTDD
--- NOTE | 2017-02-03 15:53 | PN ---
DATE OF SERVICE: 02/02/17 SUBJECTIVE: The patient was hospitalized with pneumonia. The patient's condition has improved. PHYSICAL EXAMINATION: HEENT: Head normocephalic, atraumatic. Eyes: Extraocular muscles are intact. Pupils are equal, round and reactive to light and accommodation. Ears: No lesions. Nose appeared normal. Throat: No exudate or erythema. NECK: Supple. No JVD, no carotid bruit. No lymphadenopathy or thyromegaly. LUNGS: Decreased breath sounds but clear to auscultation. Percussion note normal. Chest symmetrical. HEART: S1, S2, no S3. No murmurs. No cyanosis or clubbing. No ascites. Pulses: Dorsalis pedis and posterior tibial pulses +1 to +2 both sides. ABDOMEN: Soft. Nontender. Bowel sounds active. No CVA tenderness. No mass felt. EXTREMITIES: No edema. Full range of motion of all extremities, equal. NEUROLOGIC: No focal deficit. Cranial nerves II through XII are grossly intact. No headache, no double vision or headache. SKIN: Not dry. Intact. Turgor - normal. LYMPHATIC: No palpable lymph nodes/no lymphedema. MUSCULOSKELETAL: Normal joints with no swelling. Muscle tone is normal. PLAN: 1. Counseling for smoking done 2. PFT will be done 3. Strongly advised to quit smoking CONDITION: Improving. The patient was seen and examined with Nurse Practitioner. TIME SPENT: More than 30 minutes. Plan and coordination of the patient's care discussed in the presence of nurse. JERED
--- NOTE | 2017-02-04 11:09 | PN ---
DATE OF SERVICE: 01/31/17 SUBJECTIVE: 71 year old white female hospitalized with pneumonia. The patient's doesn't have any right flank pain or right lower quadrant pain and she has left lower lobe pneumonia. The patient is feeling a lot better. The patient I think was given 1 dose of Rocephin in the hospital in the emergency room. She is on Solu- Medrol and doesn't seem to be on any antibiotics. REVIEW OF SYSTEMS: CONSTITUTIONAL: No night sweats. No fatigue, malaise, lethargy. No fever or chills. HEENT: Eyes: No visual changes. No eye pain. No eye discharge. ENT: No runny nose. No epistaxis. No sinus pain. No sore throat. No odynophagia. No congestion. RESPIRATORY: Mild cough, no congestion. No hemoptysis. No shortness of breath. CARDIOVASCULAR: No angina symptoms. No CHF symptoms. No atypical chest pain for CAD. No palpitations. No orthopnea. GASTROINTESTINAL: No abdominal pain. No nausea or vomiting. No diarrhea or constipation. No hematemesis. No hematochezia. GENITOURINARY: No urgency. No frequency. No dysuria. No hematuria. No obstructive symptoms. No discharge. No pain. No significant abnormal bleeding. MUSCULOSKELETAL: No musculoskeletal pain; no joint swelling. NEUROLOGICAL: No headache. No neck pain. No syncope. No seizures. No dizziness. PSYCHIATRIC: Not anxious. No depression. No suicidal thoughts. No homicidal thoughts. SKIN: No rash. No lesions. No wounds. ENDOCRINE: No unexplained weight loss. No weight gain. HEMATOLOGIC/LYMPHATIC: No anemia. No purpura. No petechiae. No prolonged or excessive bleeding. No palpable lymph nodes. PHYSICAL EXAMINATION: GENERAL: The patient is oriented to time, place and person. VITAL SIGNS: Temperature 98, pulse 86, respiratory rate 20, blood pressure 100/ 52 and pulse ox 96% on room air. HEENT: Head normocephalic, atraumatic. Eyes: Extraocular muscles are intact. Pupils are equal, round and reactive to light and accommodation. Ears: No lesions. Nose appeared normal. Throat: No exudate or erythema. NECK: Supple. No JVD, no carotid bruit. No lymphadenopathy or thyromegaly. LUNGS:Decreased breath sounds but clear to auscultation. Percussion note normal. Chest symmetrical. HEART: S1, S2, no S3. No murmurs. No cyanosis or clubbing. No ascites. Pulses: Dorsalis pedis and posterior tibial pulses +1 to +2 both sides. ABDOMEN: Soft. Nontender. Bowel sounds active. No CVA tenderness. No mass felt. EXTREMITIES: No edema. Full range of motion of all extremities, equal. NEUROLOGIC: No focal deficit. Cranial nerves II through XII are grossly intact. No headache, no double vision or headache. SKIN: Not dry. Intact. Turgor - normal. LYMPHATIC: No palpable lymph nodes/no lymphedema. MUSCULOSKELETAL: Normal joints with no swelling. Muscle tone is normal. LABS: WBC was still 21,000. ASSESSMENT: 1. Pneumonia 2. Severe chronic lung disease 3. Hypertension 4. Depression PLAN: 1. Discontinue Lisinopril 2. Nutrition discussed. The patient is emaciated with under weight 3. Counseling for smoking done 4. Continue steroids and NEBS treatment 5. Antibiotics 6. Zestril was discontinued CONDITION: Stable. TIME SPENT: More than 30 minutes. Plan and coordination of the patient's care discussed in the presence of nurse. JERED
--- NOTE | 2017-02-04 13:45 | PN ---
DATE OF SERVICE: 02/01/17 SUBJECTIVE: 71 year old white female hospitalized with pneumonia. The patient's right lower quadrant and right flank pain has subsided. The patient doesn't have any fever or chills. REVIEW OF SYSTEMS: CONSTITUTIONAL: No night sweats. No fatigue, malaise, lethargy. No fever or chills. HEENT: Eyes: No visual changes. No eye pain. No eye discharge. ENT: No runny nose. No epistaxis. No sinus pain. No sore throat. No odynophagia. No congestion. RESPIRATORY: Mild cough, no congestion. No hemoptysis. No shortness of breath. CARDIOVASCULAR: No angina symptoms. No CHF symptoms. No atypical chest pain for CAD. No palpitations. No orthopnea. GASTROINTESTINAL: No abdominal pain like what she had before. No pleurisy pain. No nausea or vomiting. No diarrhea or constipation. No hematemesis. No hematochezia. Appetite has improved. GENITOURINARY: No urgency. No frequency. No dysuria. No hematuria. No obstructive symptoms. No discharge. No pain. No significant abnormal bleeding. MUSCULOSKELETAL: No musculoskeletal pain; no joint swelling. NEUROLOGICAL: No headache. No neck pain. No syncope. No seizures. No dizziness. PSYCHIATRIC: Not anxious. No depression. No suicidal thoughts. No homicidal thoughts. SKIN: No rash. No lesions. No wounds. ENDOCRINE: No unexplained weight loss. No weight gain. HEMATOLOGIC/LYMPHATIC: No anemia. No purpura. No petechiae. No prolonged or excessive bleeding. No palpable lymph nodes. PHYSICAL EXAMINATION: HEENT: Head normocephalic, atraumatic. Eyes: Extraocular muscles are intact. Pupils are equal, round and reactive to light and accommodation. Ears: No lesions. Nose appeared normal. Throat: No exudate or erythema. NECK: Supple. No JVD, no carotid bruit. No lymphadenopathy or thyromegaly. LUNGS: Decreased breath sounds but clear to auscultation. Percussion note normal. Chest symmetrical. HEART: S1, S2, no S3. No murmurs. No cyanosis or clubbing. No ascites. Pulses: Dorsalis pedis and posterior tibial pulses +1 to +2 both sides. ABDOMEN: Soft. Nontender. Bowel sounds active. No CVA tenderness. No mass felt. EXTREMITIES: No edema. Full range of motion of all extremities, equal. NEUROLOGIC: No focal deficit. Cranial nerves II through XII are grossly intact. No headache, no double vision or headache. SKIN: Not dry. Intact. Turgor - normal. LYMPHATIC: No palpable lymph nodes/no lymphedema. MUSCULOSKELETAL: Normal joints with no swelling. Muscle tone is normal. LABS: WBC 22,000 ASSESSMENT: 1. Pneumonia 2. Severe chronic lung disease 3. Hypertension PLAN: 1. Counseling for smoking done 2. Discontinued Zestril because of hypotension 3. Continue NEBS, Antibiotics, Steroids 4. Leukocytosis could be from steroid use. CONDITION: Stable. TIME SPENT: More than 30 minutes. Plan and coordination of the patient's care discussed in the presence of nurse. JERED
--- NOTE | 2017-02-05 10:20 | DS ---
DATE OF SERVICE: FINAL DIAGNOSIS: 1. PNEUMONIA, RIGHT LOWER LOBE 2. COPD 3. HYPERTENSION 4. GERD 5. OSTEOARTHRITIS 6. TOBACCO USE, SMOKES ONE PACK PER DAY 7. HYSTERECTOMY 8. APPENDECTOMY DISCHARGE INSTRUCTIONS: Followup appointment: Please keep your scheduled appointment with Dr. Khalil on 02/10/17 at the [facility]. MEDICATIONS AT DISCHARGE: Lexapro 10 mg p.o. bedtime DOUG Calcium Carbonate/Vitamin D3 one tablet daily Magnesium Oxide 250 mg p.o. daily Vitamin B12 1000 mcg p.o. daily Tramadol 50 mg p.o. b.i.d. p.r.n. Lisinopril 10 mg daily Potassium Gluconate 500 mg p.o. daily [facility] NEW PRESCRIPTIONS: Keflex 500 mg t.i.d. for 7 days Prednisone 10 mg b.i.d. for 5 days, take with food ProAir inhaler two puffs every 4 to 6 hours p.r.n. shortness of air. Please use at least twice per day (daily) DIET INSTRUCTIONS: Regular as tolerated. ACTIVITY: Gradually resume as tolerated. May return to work on February 05. SMOKING: Advised to stop smoking; avoid exposure to cigarette smoke DISEASE SPECIFIC EDUCATION: Pneumonia Use of inhalers Short term use of steroids and risk of GI upset and bone dimineralization Prescriptions HOSPITAL COURSE: This is a 71-year-old white female who presented to the emergency room with coughing, shortness of breath, low grade fever. She is a patient of Dr. Khalil but he is currently out of the country. Chest x-ray revealed that she had right lower lobe pneumonia. She has a history of COPD and is a daily smoker, one pack per day. She was admitted for right lower lobe pneumonia, placed on Rocephin 1 gm IV daily. Duonebs q.6hr nebulization treatment along with Solu- Medrol 40 mg q.8hr. She was placed on IV fluids at 75 cc an hour. Oxygen p.r.n. For the past two days she has been up and about, has been eating 75 to 100% of her meals. She has been satting 96% on room air without oxygen. Her cough is improving. She has been sleeping well. Repeat chest x-ray showed stable right lower lobe pneumonia with slight improvement in consolidation. She has not had any fever for 2 to 3 days. The patient states she would like to go home today. She would also like to return to work. It was discussed with her the seriousness of her condition. She was advised that she needs to stop smoking. She is agreeable and she will return to work on . She will go home today due to her improvement on Rocephin and Solu-Medrol. She will be discharged home on Keflex 500 mg t.i.d. for the next 7 days along with Prednisone 10 mg b.i.d. for the next 5 days. We will also give her ProAir inhaler to do one to two puffs 2 to 3 times a day to help. The patient has an appointment to see Dr. Khalil for routine followup on February 10. Today, on day of discharge, vital signs are stable. Temperature 97.9, blood pressure 160/ 70, pulse ox 94% on room air, heart rate 78, respirations 16. Labs are steady. Elevated white count due to steroid use. Hemoglobin stable at 10.1, kidney function is normal at 11 and 0.65, sodium 141, potassium 4.4. She will be discharged home in stable condition and Dr. Khalil will followup with her on the . TIME SPENT: More than 60 minutes. JERED
--- NOTE | 2017-02-05 10:51 | HP ---
DATE OF SERVICE: 01/30/17 REASON FOR HOSPITALIZATION/HISTORY OF PRESENT ILLNESS: 71 year old white female came to the emergency room with right flank pain going to the right lower quadrant typical like kidney stone type of pain, very intense. The patient had further work up in the way of CT scan on the abdomen done in the hospital emergency room where there is no evidence of any stone and there was no acute findings but the left lower lobe showed pneumonia. The patient is a heavy smoker and has mild cough, congestion and describes that as chronic. The patient's WBC was 20,000. The patient was admitted with the diagnosis of pneumonia. PAST MEDICAL HISTORY/PAST SURGICAL HISTORY: Depression Chronic lung disease History of heavy smoking Borderline hypertension REVIEW OF SYSTEMS: CONSTITUTIONAL: No night sweats. Fatigue and weakness. No fever or chills. HEENT: Eyes: No visual changes. No eye pain. No eye discharge. ENT: No runny nose. No epistaxis. No sinus pain. No sore throat. No odynophagia. No ear pain. No congestion. RESPIRATORY: Left sided pain more intense with cough mild in nature. Sputum production doesn't what kind, she swallows her sputum. No hemoptysis. Shortness of breath on exertion as usual. CARDIOVASCULAR: No angina symptoms. No CHF symptoms. No atypical chest pain for CAD. No palpitations. No orthopnea. Pleuritic type of pain, right sided. No angina type of symptoms. GASTROINTESTINAL: No abdominal pain. No nausea or vomiting. No diarrhea or constipation. No hematemesis. No hematochezia. GENITOURINARY: No urgency. No frequency. No dysuria. No hematuria. No obstructive symptoms. No discharge. No pain. No significant abnormal bleeding. MUSCULOSKELETAL: No musculoskeletal pain. No joint swelling. No arthritis. NEUROLOGICAL: No headache. No neck pain. No syncope. No seizures. No dizziness. PSYCHIATRIC: Not anxious. No depression. No suicidal thoughts. No homicidal thoughts. SKIN: No rash. No lesions. No wounds. ENDOCRINE: No unexplained weight loss. No weight gain. HEMATOLOGIC/LYMPHATIC: No anemia. No purpura. No petechiae. No prolonged or excessive bleeding. No palpable lymph nodes. PERSONAL/FAMILY/SOCIAL HISTORY: The patient is able to do all activity of daily living. Heavy smoker and lives by herself. No alcohol abuse. MEDICATIONS: Calcium 600mg PO daily Vitamin B12 PO daily Magnesium PO daily K-Tab 50mg PO daily Tramadol 50mg twice a day Lexapro 10mg PO daily Lisinopril 10mg PO daily Gravette 10-325mg Q 8 hour for pain PRN ALLERGIES: None PHYSICAL EXAMINATION: GENERAL: The patient is oriented to time, place and person. VITAL SIGNS: Temperature 100.9, pulse 94, respiratory rate 20, blood pressure 107/60 and pulse ox 91% on room air. HEENT: Head normocephalic, atraumatic. Eyes: Extraocular muscles are intact. Pupils are equal, round and reactive to light and accommodation. Ears: No lesions. Nose appeared normal. Throat: No exudate or erythema. NECK: Supple. No JVP, no carotid bruit. No lymphadenopathy or thyromegaly. LUNGS: Decreased breath sounds with few crepitations on the left side. Percussion note normal. Chest symmetrical. HEART: S1, S2, no S3. No murmurs. No cyanosis or clubbing. No ascites. Pulses: Dorsalis pedis and posterior tibial pulses +1. PMI not palpable on auscultation. ABDOMEN: Soft. Nontender. Bowel sounds active. No CVA tenderness. No mass felt. EXTREMITIES: No edema. Full range of motion of all extremities, equal. NEUROLOGIC: No focal deficit. Cranial nerves II through XII are grossly intact. No headache, no double vision or headache. SKIN: Not dry. Intact. Turgor - normal. LYMPHATIC: No palpable lymph nodes/no lymphedema. MUSCULOSKELETAL: Normal joints with no swelling. Muscle tone is normal. LABS: Hgb 12.4, hct 36, WBC 20,000 normal differential, creatinine 1.2, BUN 26, potassium 4.6, creatinine 1.2, BUN 26. U/A practically negative with no leukocyte esterase, no blood in the urine ASSESSMENT: 1. Pneumonia, left lower lobe 2. Abdominal pain, right flank pain going to the right lower quadrant with no evidence of kidney stone. 3. Severe chronic lung disease 4. Smoking 5. Chronic kidney disease 6. Depression 7. History of hypertension PLAN: 1. IV fluids 2. Watch for fluid overload 3. Telemetry 4. EKG, showed P Pulmonale, pulmonale disease type of pattern with RS lateral precordial leads otherwise no acute changes. 5. Will given NEBS treatment 6. IV antibiotics 7. Steroids CONDITION: Stable TIME SPENT: More than 70 minutes. MTDD
== END 2017-02-03 11:38 | disposition home or self-care (01) | DRG 195 ==
LOC: ED 17:10 → MEDSURG A 19:22
PROVIDERS: ADMIT Internal Medicine; ATTEND Internal Medicine
DX: J18.1 Lobar pneumonia, unspecified organism (principal); M54.5 Low back pain; J44.9 Chronic obstructive pulmonary disease, unspecified; I10 Essential (primary) hypertension; R06.02 Shortness of breath; R10.31 Right lower quadrant pain; R30.0 Dysuria; K21.9 Gastro-esophageal reflux disease without esophagitis; M19.90 Unspecified osteoarthritis, unspecified site; F32.9 Major depressive disorder, single episode, unspecified; F17.200 Nicotine dependence, unspecified, uncomplicated; Z79.899 Other long term (current) drug therapy
CPT/HCPCS: 36415; 74176; 80053; 81001; 82803; 83605; 84145; 85025; 87040; 93005; 93010; 94640; 96374; 96375; 99284

== ENCOUNTER 2017-04-24 15:09 | Outpatient (CLI) ==
--- NOTE | 2017-04-24 15:32 | DI ---
Exam: Two x-rays of the chest. Comparison: 02/02/2017. Reason for exam: Cough. FINDINGS: Patchy airspace opacities are seen in the right lung base. The left lung is clear. No pn eumothorax. The cardiac silhouette is not enlarged. Impression: Patchy airspace opacities in the right lower lobe consistent with pneumonia.
== END 2017-04-24 15:10 | disposition home or self-care (01) ==
LOC: RAD 15:09
PROVIDERS: ATTEND General Practice
DX: R05 Cough (principal); R06.89 Other abnormalities of breathing

== ENCOUNTER 2017-04-24 19:32 | Inpatient (IN) ==
[2017-04-24] MEDS ORDERED: ROCEPHIN 2 GM in SODIUM CHLORIDE 50 ML IV SCH (20:00)
[2017-04-24 20:10] VITALS: BMI 20.3
[2017-04-24] MEDS ORDERED: PROAIR HFA IH PRN (20:18)
[2017-04-24] MEDS ORDERED: ULTRAM PO PRN (20:18)
[2017-04-24] MEDS ORDERED: ROCEPHIN ONE (20:49)
[2017-04-24] MEDS ORDERED: AVELOX 400 MG in PREMIX 250 ML NS 1 BAG IV SCH (22:00)
[2017-04-24] MEDS ORDERED: AVELOX 250 ML IV ONE (22:28)
[2017-04-24] MEDS ORDERED: INFUVITE ADULT IV ONE (22:28)
[2017-04-24] MEDS: INFUVITE ADULT 10 ML in D5%-NS-KCL 20 MEQ/L IV SOL 1,000 ML IV SCH (22:36)
[2017-04-24] MEDS: MUCINEX PO SCH (22:36)
[2017-04-25] MEDS ORDERED: ZOFRAN 4 MG/2 ML IVP STA (08:32)
[2017-04-25] MEDS ORDERED: MAGNESIUM OXIDE 250 MG PO SCH (09:00)
[2017-04-25] MEDS ORDERED: NON-FORMULARY MEDICATION (Calcium Carbonate/Vitamin D3 [Calcium 600-Vit D3 200 Tablet] 1 E PO SCH (09:00)
[2017-04-25] MEDS: NON-FORMULARY MEDICATION (Cyanocobalamin (Vitamin B-12) [Vitamin B-12] 1,000 MCG) PO SCH (09:23)
[2017-04-25] MEDS: CALCIUM 500 + VIT D 200 MG TABLET PO SCH (09:23)
[2017-04-25] MEDS: MAG-OX PO SCH (09:24)
[2017-04-25] MEDS: LEXAPRO PO SCH (09:24)
[2017-04-25] MEDS: MUCINEX PO SCH ×2 (09:25→20:49)
[2017-04-25] MEDS: ZESTRIL PO SCH (09:25)
[2017-04-25] MEDS: POTASSIUM GLUCONATE 500 MG PO SCH (10:08)
[2017-04-25] MEDS: ULTRAM PO PRN (16:03)
[2017-04-25] MEDS ORDERED: INFUVITE ADULT IV ONE (17:20)
[2017-04-25] MEDS: INFUVITE ADULT 10 ML in D5%-NS-KCL 20 MEQ/L IV SOL 1,000 ML IV SCH (17:25)
[2017-04-25] MEDS: ROCEPHIN 2 GM in SODIUM CHLORIDE 50 ML IV SCH (20:49)
[2017-04-25] MEDS: AVELOX 400 MG in PREMIX 250 ML NS 1 BAG IV SCH (21:51)
[2017-04-26] MEDS ORDERED: ZOFRAN 4 MG/2 ML IVP STA ×2 (07:45→17:32)
[2017-04-26] MEDS: MAG-OX PO SCH (08:26)
[2017-04-26] MEDS: ZESTRIL PO SCH (08:26)
[2017-04-26] MEDS: MUCINEX PO SCH ×2 (08:26→20:47)
[2017-04-26] MEDS: NON-FORMULARY MEDICATION (Cyanocobalamin (Vitamin B-12) [Vitamin B-12] 1,000 MCG) PO SCH (08:27)
[2017-04-26] MEDS: CALCIUM 500 + VIT D 200 MG TABLET PO SCH (08:27)
[2017-04-26] MEDS: LEXAPRO PO SCH (08:27)
[2017-04-26] MEDS: POTASSIUM GLUCONATE 500 MG PO SCH (08:28)
[2017-04-26] MEDS ORDERED: INFUVITE ADULT IV ONE ×2 (08:51→19:28)
[2017-04-26] MEDS: INFUVITE ADULT 10 ML in D5%-NS-KCL 20 MEQ/L IV SOL 1,000 ML IV SCH ×2 (08:57→21:36)
[2017-04-26] MEDS: ULTRAM PO PRN (18:01)
[2017-04-26] MEDS: ROCEPHIN 2 GM in SODIUM CHLORIDE 50 ML IV SCH (20:47)
[2017-04-26] MEDS ORDERED: LOVENOX SUBCUT SCH (21:30)
[2017-04-26] MEDS: AVELOX 400 MG in PREMIX 250 ML NS 1 BAG IV SCH (22:00)
[2017-04-27] MEDS: LEXAPRO PO SCH (09:10)
[2017-04-27] MEDS: MAG-OX PO SCH (09:10)
[2017-04-27] MEDS: CALCIUM 500 + VIT D 200 MG TABLET PO SCH (09:11)
[2017-04-27] MEDS: NON-FORMULARY MEDICATION (Cyanocobalamin (Vitamin B-12) [Vitamin B-12] 1,000 MCG) PO SCH (09:11)
[2017-04-27] MEDS: MUCINEX PO SCH ×2 (09:11→22:24)
[2017-04-27] MEDS: ZESTRIL PO SCH (09:11)
[2017-04-27] MEDS: POTASSIUM GLUCONATE 500 MG PO SCH (09:12)
[2017-04-27] MEDS ORDERED: INFUVITE ADULT IV ONE (10:21)
[2017-04-27] MEDS: INFUVITE ADULT 10 ML in D5%-NS-KCL 20 MEQ/L IV SOL 1,000 ML IV SCH (11:46)
[2017-04-27] MEDS: ROCEPHIN 2 GM in SODIUM CHLORIDE 50 ML IV SCH (21:46)
[2017-04-27] MEDS: AVELOX 400 MG in PREMIX 250 ML NS 1 BAG IV SCH (22:24)
[2017-04-27] MEDS: LOVENOX SUBCUT SCH (22:25)
[2017-04-28] MEDS ORDERED: INFUVITE ADULT IV ONE (01:57)
[2017-04-28] MEDS: INFUVITE ADULT 10 ML in D5%-NS-KCL 20 MEQ/L IV SOL 1,000 ML IV SCH ×2 (03:20→03:36)
[2017-04-28] MEDS: NON-FORMULARY MEDICATION (Cyanocobalamin (Vitamin B-12) [Vitamin B-12] 1,000 MCG) PO SCH (08:23)
[2017-04-28] MEDS: POTASSIUM GLUCONATE 500 MG PO SCH (08:24)
[2017-04-28] MEDS: ZESTRIL PO SCH (08:27)
[2017-04-28] MEDS: MAG-OX PO SCH (08:28)
[2017-04-28] MEDS: CALCIUM 500 + VIT D 200 MG TABLET PO SCH (08:28)
[2017-04-28] MEDS: MUCINEX PO SCH ×2 (08:28→21:25)
[2017-04-28] MEDS: LEXAPRO PO SCH (08:28)
[2017-04-28] MEDS: LOVENOX SUBCUT SCH (21:24)
[2017-04-28] MEDS: ROCEPHIN 2 GM in SODIUM CHLORIDE 50 ML IV SCH (21:24)
[2017-04-28] MEDS: AVELOX 400 MG in PREMIX 250 ML NS 1 BAG IV SCH (23:58)
[2017-04-29] MEDS: LEXAPRO PO SCH (09:26)
[2017-04-29] MEDS: NON-FORMULARY MEDICATION (Cyanocobalamin (Vitamin B-12) [Vitamin B-12] 1,000 MCG) PO SCH (09:26)
[2017-04-29] MEDS: CALCIUM 500 + VIT D 200 MG TABLET PO SCH (09:26)
[2017-04-29] MEDS: MAG-OX PO SCH (09:27)
[2017-04-29] MEDS: MUCINEX PO SCH ×2 (09:28→20:38)
[2017-04-29] MEDS: ZESTRIL PO SCH (09:28)
[2017-04-29] MEDS: POTASSIUM GLUCONATE 500 MG PO SCH (09:28)
--- NOTE | 2017-04-29 11:57 | PN ---
DATE OF VISIT: 04/27/17 SUBJECTIVE: The patient is feeling somewhat better today and her appetite is better. She has consumed about 50% of her meal. She had been nauseated the last couple of days. Zofran was given for nausea. The IV is continued to hydrate the patient. PHYSICAL EXAMINATION: V/S: Vital signs at 6 p.m. 04/27/17 showed temperature of 98.2, pulse 83, BP 118 /57, respiratory rate 18, oxygen saturation 98 on 2L. She is alert, not dyspneic or tachypneic and no cyanosis. CHEST: Kyphotic. Lungs still has rales in both lung muniz, more on the right side, more so the lower portion. No expiratory wheezing. HEART: Audible and regular with good tones, no murmur. LABS: Influenza A and B done yesterday were negative. Urine done 04/25/17 is abnormal, 5 to 10 RBC, 10 to 20 WBC but squamous cells are high 10 to 20. Urine culture greater than 30,000 colony count but probable contamination. Growth is mixed. Will try to reduce the oxygen tomorrow and see how she does with one liter. JERED
--- NOTE | 2017-04-29 13:13 | PN ---
DATE OF VISIT: 04/28/17 SUBJECTIVE: The patient is alert and ambulatory with no cyanosis and no distress. She feels like she can go home probably tomorrow. I had discontinued the IVs but will continue the intravenous medications. OBJECTIVE: Vital signs today at 1:55 p.m. showed a temperature of 99.1, pulse 104, BP 127/ 53, respiratory rate 16, oxygen saturation 94 on 2L. This patient however is walking without any oxygen. LUNGS: Rales in both lung muniz, more in the lower bilaterally. There is less amount of rales in the upper chest field. HEART: Normal sinus rhythm. CONDITION: Stable and improved. MTDD
--- NOTE | 2017-04-29 13:25 | PN ---
DATE OF VISIT: 04/25/17 SUBJECTIVE: The patient today is still complaining of nausea and was given Zofran. Her appetite is poor. OBJECTIVE: Vital signs at 6 p.m. 04/25/17 showed a temperature of 98.8, pulse 97, BP 106/56 , respiratory rate 18, oxygen saturation 93% on 2L. This patient is known to have chronic obstructive lung disease with continued smoking. She had rales in both lung muniz more on the right side and the chest x-ray showed pneumonitis. LABS: Today showed WBC of 13,860, slightly lower than yesterday. Hemoglobin 9.7 from 10.8 on admission. Platelet count 268,000. Chemistry essentially normal electrolytes. BUN down 19 from 23. EGFR 55 from 40. Liver enzymes normal. Urinalysis abnormal 5 to 10 RBCs, 10 to 20 WBC, 2 to 5 transitional epithileal cells, 10 to 20 squamous epithileal cells, specimen not a good sample. She barely ate all of her food. The patient is receiving intravenous fluids and will be continued. MTDD
--- NOTE | 2017-04-29 13:31 | PN ---
DATE OF VISIT: 04/26/17 SUBJECTIVE: The patient today is alert, oriented times four, not dyspneic or tachypneic with 2L of oxygen lying in a position. OBJECTIVE: Vital signs at 5:38 p.m. showed a temperature of 98.6, pulse 93, BP 125/61, respiratory rate 18, oxygen saturation 96 on 2L/NC. CHEST: Lungs: The patient still has rales on both lung muniz, more on the right side. No significant wheezing. The patient has kyphosis. She had been advised to stop smoking but the patient had persisted. HEART: Audible with good tones. LABS: Today showed decreasing WBC down to 12,670 and MCV and MCH elevated. Platelet count remained about the same and the EGFR is now normal at 88. BUN is down to 8 from 23. Creatinine is 0.66. The procalcitonin is down to 59 from 1.42. This patient is receiving Rocephin 2 gm intravenously and Moxifloxacin 400 mg intravenously daily. This patient mostly stays in bed and will be given Lovenox prophylactically. MTDD
--- NOTE | 2017-04-29 14:45 | DI ---
EXAM: Chest two view, frontal and lateral views. HISTORY: Pneumonia follow-up. COMPARISON: 04/24/2017. FINDINGS: Heart size is normal. Atherosclerotic calcifications present. Right basilar consolidatio n is probably unchanged since the prior study. No new areas of consolidation are seen. No pleural e ffusion or pneumothorax detected. No acute osseous abnormality identified. IMPRESSION: Stable right basilar consolidation.
[2017-04-29] MEDS: ROCEPHIN 2 GM in SODIUM CHLORIDE 50 ML IV SCH (20:37)
[2017-04-29] MEDS: LOVENOX SUBCUT SCH (20:38)
[2017-04-29] MEDS: AVELOX PO SCH (20:38)
[2017-04-30] MEDS: CALCIUM 500 + VIT D 200 MG TABLET PO SCH (08:22)
[2017-04-30] MEDS: LEXAPRO PO SCH (08:23)
[2017-04-30] MEDS: NON-FORMULARY MEDICATION (Cyanocobalamin (Vitamin B-12) [Vitamin B-12] 1,000 MCG) PO SCH (08:23)
[2017-04-30] MEDS: MAG-OX PO SCH (08:23)
[2017-04-30] MEDS: MUCINEX PO SCH ×2 (08:24→20:01)
[2017-04-30] MEDS: ZESTRIL PO SCH (08:24)
[2017-04-30] MEDS: POTASSIUM GLUCONATE 500 MG PO SCH (08:27)
[2017-04-30] MEDS ORDERED: DUONEB NEB PRN (10:14)
[2017-04-30] MEDS: DUONEB NEB SCH ×3 (14:07→22:25)
[2017-04-30] MEDS: LOVENOX SUBCUT SCH (20:00)
[2017-04-30] MEDS: ROCEPHIN 2 GM in SODIUM CHLORIDE 50 ML IV SCH (20:01)
[2017-04-30] MEDS: AVELOX PO SCH (20:01)
[2017-05-01] MEDS: DUONEB NEB SCH ×5 (02:00→17:32)
[2017-05-01] MEDS: MAG-OX PO SCH (08:46)
[2017-05-01] MEDS: LEXAPRO PO SCH (08:46)
[2017-05-01] MEDS: ZESTRIL PO SCH (08:48)
[2017-05-01] MEDS: CALCIUM 500 + VIT D 200 MG TABLET PO SCH (08:49)
[2017-05-01] MEDS: MUCINEX PO SCH (08:49)
[2017-05-01] MEDS: POTASSIUM GLUCONATE 500 MG PO SCH (09:53)
[2017-05-01] MEDS: NON-FORMULARY MEDICATION (Cyanocobalamin (Vitamin B-12) [Vitamin B-12] 1,000 MCG) PO SCH (09:53)
[2017-05-01] MEDS: INFUVITE ADULT 10 ML in D5%-NS-KCL 20 MEQ/L IV SOL 1,000 ML IV SCH (09:54)
[2017-05-01 14:50] VITALS: BP 120/60; TEMP 98.2
--- NOTE | 2017-05-05 06:59 | PN ---
DATE OF VISIT: 04/30/17 SUBJECTIVE: The patient is alert, oriented times one, not dyspneic or tachypneic without any oxygen. Her color is good. She is kyphotic. OBJECTIVE: VITAL SIGNS: 5:14 p.m. showed a temperature of 97.8, pulse 81, BP 143/65, respiratory rate 20, oxygen saturation 94 on room air. LUNGS: Breath sounds are better. Moderate rales more so in the upper posterior chest muniz. HEART: Normal sinus rhythm. PLAN/DISCUSSION: I did advise the patient to take lung exercises, taking deep breaths and blowing out slowly. I demonstrated to her how to do it and she should do that three times in a row and do this twelve times a day. I reiterated what I told her yesterday that the x-rays showed persistent pneumonia but no worse but maybe better but not clear. Sometimes, the changes in the x-ray will take about two weeks for it to disappear. Since she is doing better clinically, she would probably be discharged tomorrow. Her appetite had improved somewhat and did eat 50%. I told her that I would not advise her to go back to work although she insisted on going back. I did inform her that if she would have resurgence or recurrence of her pneumonia that she would be looking for a long recovery and maybe also detrimental to the outcome including a demise from the process. The granddaughter was in the room during the course of our discussion. I asked the granddaughter if she does smoke and she said yes. The patient claimed that she will stop smoking. She had not smoked for about two weeks now. I told her that it would be foley and more advantages for her to stop smoking and probably would improve her general health and also the outcome of this pneumonia. Urine culture revealed mixed growth. Sputum culture normal to mixed growth. Blood culture negative after five days. MTDD
--- NOTE | 2017-05-07 14:17 | DS ---
DATE OF SERVICE: 05/01/17 PATIENT IDENTIFICATION: 71-year-old female presented to the office initially because of cough and moderately high fever of 103.2. The problem began a day and one-half prior to presentation. Examination revealed rales in both lung muniz more on the right side. The chest x-ray does indicate pneumonitis on the right lower lobe. This patient was contacted and advised admission and agreed. The patient, while in the hospital had blood and sputum cultures initiated. The patient was given Ceftriaxone 2 gm intravenously daily, was continued on the ProAir two puffs every four hours as needed with Tramadol 50 mg twice a day p.r.n. Moxifloxacin also was added at 400 mg daily intravenously. The patient was given IV Dextrose in NS plus 20 KCL plus MVI. Medications were continued and the patient also was given a prophylactic dose of Lovenox 30 mg subcutaneously daily. The patient's CBC showed mild leukocytosis 214,610. The subsequent repeat CBC showed declining WBC towards normal and indeed returned to normal on 04/29/17. Hemoglobin is down and did decrease down to 9.4. Cell indices does indicate some B12 deficiency. The patient's repeated chemistries didn't show any significant problems that would be clinically significant. The procalcitonin on admission was 1.42 which is elevated and went down to 0.59. Urinalysis done on 04/25/17 showed 1+ leukocyte esterase, 5 to 10 RBC, 10 to 20 WBC, squamous cells 10 to 10, bacteria 1+. Culture showed mixed growth. The patient's temperature had a low grade spike on the first three days of hospitalization. The temperature since then had returned to normal. The pulses also returned to normal as well as the blood pressure. The patient's nasal oxygen was discontinued and the patient's oxygen saturation ranges from 91 to 94 without oxygen. The patient's lungs were getting clearer every day. The patient, at time of discharge was alert, ambulatory and happy to go home. Temperature 98.2, pulse 82, BP 120/60, respiratory rate 20, oxygen saturation 97 on room air. Lungs - breath sounds are diminished and rales also are much less on both sides. Chest x-ray done 04/29/17 showed persistent right lower lobe pneumonitis. The patient however is much better clinically. I did inform the patient that the x-ray findings may disappear after 2 to 3 weeks from today. Appetite has been good. This patient will be discharged today 05/01/17 and the vital signs at 2 p.m. showed a temperature 90.2, pulse 82, BP 120/60, respiratory rate 20, oxygen saturation 97% on room air. The patient is to resume her previous medications and she was prescribed Levaquin 500 mg tablet daily for 6 to 7 days. The patient should followup at the office on Thursday, and will return to work on Thursday but has to take it easy. The patient seemed to have a good understanding with instructions. FINAL DIAGNOSES: 1. RIGHT LOWER LOBE PNEUMONITIS IMPROVED 2. RESPIRATORY FAILURE, ACUTE SECONDARY TO #1 RESOLVED 3. COPD 4. CHRONIC TOBACCO USE AND ABUSE PERSISTENT PROGNOSIS: GUARDED MTDD
--- NOTE | 2017-05-18 13:25 | PN ---
DATE OF VISIT: 04/29/17 SUBJECTIVE: The patient's Vital signs at 2:00pm showed a temperature of 97.9, pulse 78, blood pressure 146/66, respiratory rate 24, oxygen saturation 93. This patient' s chest x-ray showed stable right basilar consolidation, not any worse but not any better. This patient clinically is better. LUNGS: Still has rales in both lung muniz. Kyphotic and this patient continues to smoke. I tell the patient to stop smoking. MTDD
--- NOTE | 2017-05-21 15:24 | HP ---
CHIEF COMPLAINT: [] SOURCE OF HISTORY: [] HISTORY OF PRESENT ILLNESS: [] PAST PERSONAL HISTORY: [] FAMILY HISTORY: [] SOCIAL HISTORY: [] MEDICATIONS: [] ALLERGIES: [] REVIEW OF SYSTEMS: CONSTITUTIONAL: [] MASH PROCESSING OPERATOR: [] VISUAL: [] AUDITORY: [] RESPIRATORY: [] CARDIOVASCULAR: [] GASTROINTESTINAL: [] GENITOURINARY: [] MUSCULOSKELETAL: [] ENDOCRINE: [] INTEGUMENT: [] HEMATOLOGIC: [] PSYCHIATRIC: [] PHYSICAL EXAMINATION: GENERAL: [] VITAL SIGNS: [] HEAD: [] EYES: Pupils equal/reactive to light. Conjunctivae not pale. Sclerae not icteric. MOUTH: [] THROAT: No inflammation, tumors or exudate. NECK: No masses. No bruit. No tenderness. No rigidity. CHEST: [] LUNGS: [] HEART: Audible and regular with good tones. No murmurs. ABDOMEN: [] EXTERNAL GENITALIA: [] RECTAL: [] LOWER EXTREMITIES: [] UPPER EXTREMITIES: [] ASSESSMENT: 1. [] PLAN: 1. [] MTDD
--- NOTE | 2017-05-22 08:38 | HP ---
CHIEF COMPLAINT: Fever and cough. SOURCE OF HISTORY: Patient HISTORY OF PRESENT ILLNESS: The patient claimed that she felt feverish since the day before presentation to the office, as well as cough. The temperature did rise to 103.2. The patient denied any significant muscular aches. She also denied any significant headaches. The patient was seen at the office and was found to have rales in both lung muniz, more on the right side. She also has significant kyphosis. She also does smoke. The patient was sent for a chest x-ray and was interpreted as air space opacities in the right lower lobe consistent with pneumonia. The left lung is clear. This patient was advised admission because of the pneumonic process and her chronic obstructive pulmonary disease. The patient was agreeable. PAST PERSONAL HISTORY: The patient had repeated episodes of pneumonia and the last one was in December 2014. She also was given a diagnosis of chronic obstructive lung disease, kyphosis, chronic back pain. The patient had hip pain bilaterally in the past. FAMILY HISTORY: No significant hereditary disease in the family. SOCIAL HISTORY: The patient is a and works at the [employer]. She had worked there for several years. She smokes about a pack of cigarettes a day and maybe more. She denied any use of alcohol. She is self sufficient. MEDICATIONS: Prior to this admission consisted of: Calcium Carbonate plus Vitamin D 600/200 mg daily Vitamin B12 1,000 mcg p.o. daily Magnesium Oxide 250 mg daily Potassium Gluconate 500 mg daily Tramadol 50 mg tablet twice a day as needed Albuterol Sulfate 2 puffs every 4 hours as needed Lexapro 10 mg daily Lisinopril 10 mg daily ALLERGIES: No known drug allergies. REVIEW OF SYSTEMS: CONSTITUTIONAL: The patient has fever of 103.2 with chills and chilly sensation and weakness. AUTOMOTIVE PROFESSIONAL: The patient had no syncopal episode and no seizure disorder. No ataxia or significant headaches or visual disturbances. VISUAL: Denies any blurred vision, double vision or transient loss of vision. AUDITORY: Hearing is adequate. Denies any pain, drainage or dizziness. RESPIRATORY: The patient has cough, productive and purulent. CARDIOVASCULAR: The patient denies any chest pain. GASTROINTESTINAL: The patient's appetite is decreased, but no vomited, but does have nausea. Denies any diarrhea. GENITOURINARY: Denies any pain or frequency of urination. MUSCULOSKELETAL: The patient has no significant muscle or bone pain. ENDOCRINE: Negative. INTEGUMENT: Denies any rash or pruritus. HEMATOLOGIC: No history of prolonged bleeding. PSYCHIATRIC: Affect is normal. PHYSICAL EXAMINATION: GENERAL: We have a 71 year old female with kyphosis admitted to the hospital because of right lower lobe pneumonia with a fever of 103.2 plus nausea , but no vomiting. The patient also has a productive cough with purulent sputum. The patient is alert and oriented times four. Not dyspneic, nor tachypneic with no cyanosis. VITAL SIGNS: Temperature was 99 orally, pulse 116, blood pressure 118/54, respiratory rate 18, oxygen saturation 87 at room air. HEAD: Unremarkable. FACE: Symmetrical and equal with no facial weakness and no redness. Palpation of the frontal and maxillary sinus areas does not illicit any significant tenderness. EYES: Pupils equal/reactive to light about 3 mm in size. Conjunctivae slightly pale. Sclerae not icteric. THROAT: No inflammation, tumors or exudate. NECK: No masses. Bilateral bruit. No tenderness. No rigidity. CHEST: Kyphotic with acceptable expansion. LUNGS: Breath sounds are diminished with rales in both lung muniz, more on the right base. No expiratory wheezing. HEART: Audible and regular with good tones. No murmurs. ABDOMEN: Flat, soft with no remarkable tenderness. No guarding. Bowel sounds are active. No masses palpable. EXTERNAL GENITALIA: Not examined. PELVIC AND RECTAL: Not performed. LOWER EXTREMITIES: Symmetrical and equal with no significant edema. Pedal pulses present anteriorly. UPPER EXTREMITIES: Symmetrical and equal. ASSESSMENT: 1. RIGHT LOWER LOBE PNEUMONITIS 2. RESPIRATORY FAILURE SECONDARY TO #1. 3. CHRONIC OBSTRUCTIVE LUNG DISEASE 4. CHRONIC TOBACCO USE AND ABUSE, PERSISTENT 5. NEGATIVE INFLUENZA A AND B BY NUCLEAR AMPLIFICATION MTDD
== END 2017-05-01 17:55 | disposition home or self-care (01) | DRG 193 ==
LOC: MEDSURG B 19:32 → UNDOADMIN 19:32
PROVIDERS: ADMIT General Practice; ATTEND General Practice
DX: J18.9 Pneumonia, unspecified organism (principal); J96.00 Acute respiratory failure, unspecified whether with hypoxia or hypercapnia; R11.0 Nausea; R50.9 Fever, unspecified; R05 Cough; R06.89 Other abnormalities of breathing; J44.9 Chronic obstructive pulmonary disease, unspecified; M40.209 Unspecified kyphosis, site unspecified; F17.210 Nicotine dependence, cigarettes, uncomplicated; Z87.01 Personal history of pneumonia (recurrent); Z79.899 Other long term (current) drug therapy
CPT/HCPCS: 36415; 80053; 81001; 84145; 85007; 85025; 86710; 87040; 87070; 87086; 87502; 87651; 87804; 94640; 99223; 99231; 99232; 99239

== ENCOUNTER 2017-04-24 19:59 | Outpatient (CLI) | END 2017-04-24 20:00 | disposition home or self-care (01) | LOC: LAB 19:59 | PROVIDERS: ATTEND General Practice | DX: R05 Cough (principal); R50.9 Fever, unspecified | CPT/HCPCS: 87651; 87804 ==

== ENCOUNTER 2017-05-25 07:17 | Outpatient (CLI) ==
--- NOTE | 2017-05-25 08:10 | DI ---
EXAM: Chest, two views, 05/25/2017 HISTORY: Lobar pneumonia COMPARISON: 04/29/2017 FINDINGS / IMPRESSION: Right basilar infiltrates have partially resolved. There is residual bluntin g of the right lateral costophrenic angle. This may represent atelectasis, pneumonia and/or small pl eural effusion. The left lung appears well aerated. Chronic apical opacities may relate to scarring. The heart size remains within normal limits.
== END 2017-05-25 07:18 | disposition home or self-care (01) ==
LOC: RAD 07:17
PROVIDERS: ATTEND General Practice
DX: J18.1 Lobar pneumonia, unspecified organism (principal)

== ENCOUNTER 2017-06-26 16:19 | Outpatient (CLI) ==
--- NOTE | 2017-06-26 16:42 | DI ---
Exam: Two x-rays of the chest. Comparison: 05/25/2017. Reason for exam: Pneumonia. FINDINGS: No pneumothorax, pleural effusion, or focal consolidation. The cardiac silhouette is unch anged. There is similar appearing exaggeration of the thoracic kyphotic curve. Similar appearing [place] in the left apex not significantly changed from previous imaging appears similar when compared t o x-rays dating back to at least 2014. Impression: No acute cardiopulmonary process.
== END 2017-06-26 16:20 | disposition home or self-care (01) ==
LOC: RAD 16:19
PROVIDERS: ATTEND General Practice
DX: J18.9 Pneumonia, unspecified organism (principal); I10 Essential (primary) hypertension; Z79.899 Other long term (current) drug therapy
CPT/HCPCS: 36415; 80053; 81001; 85025

== ENCOUNTER 2017-08-11 16:20 | Outpatient (CLI) | payer OTHER | END 2017-08-11 16:21 | disposition home or self-care (01) | LOC: FCC-LAB 16:20 | PROVIDERS: ATTEND General Practice | DX: I10 Essential (primary) hypertension (principal) | CPT/HCPCS: 36415; 80069; 85007; 85025 ==

== ENCOUNTER 2017-09-21 10:38 | Outpatient (CLI) | END 2017-09-21 10:39 | disposition home or self-care (01) | LOC: FCC-LAB 10:38 | PROVIDERS: ATTEND General Practice | DX: E55.9 Vitamin D deficiency, unspecified (principal); I10 Essential (primary) hypertension; M54.6 Pain in thoracic spine; R09.89 Other specified symptoms and signs involving the circulatory and respiratory systems; K21.9 Gastro-esophageal reflux disease without esophagitis; J44.9 Chronic obstructive pulmonary disease, unspecified; Z79.899 Other long term (current) drug therapy | CPT/HCPCS: 36415; 80053; 80061; 81001; 82306; 85025 ==

== ENCOUNTER 2017-10-27 15:03 | Inpatient (IN) ==
[2017-10-27] MEDS ORDERED: DILAUDID 2 MG/ML SYRINGE IVP PRN (16:16)
--- NOTE | 2017-10-27 17:04 | CT ---
EXAM: CT of the lumbar spine without contrast History: Bilateral lower extremity numbness and weakness. Comparison: CT abdomen pelvis 01/30/2017 Technique: Multiplanar CT images through the lumbar spine were obtained without the administration o f IV contrast. Findings: Lung bases are free of consolidation. Severe atherosclerotic vascular disease with extens vandana calcification seen within the distal abdominal aorta causing severe stenosis and possible occlusi on and similar to the prior study. 3 mm left renal calculus. No acute fracture or subluxation of the lumbar spine. Mild to moderate disc space narrowing at L1-L2 with endplate sclerosis and osteophyte formation. Mild disc space narrowing seen elsewhere. Osteope chuy. T12-L1. No significant bony central canal stenosis or bony neural foraminal narrowing. L1-L2: Small disc bulge effacing anterior thecal sac with no significant bony central canal stenosis . No significant bony neural foraminal narrowing. L2-L3: Small disc bulge effacing anterior thecal sac with no significant bony central canal stenosis. No significant bony neural foraminal narrowing. L3-L4: Small disc bulge effacing anterior thecal sac with no significant bony central canal stenosis . No significant bony neural foraminal narrowing. L4-L5: Modest disc protrusion effacing anterior thecal sac with moderate central canal stenosis. Mo derate right and mild to moderate left bony neural foraminal narrowing secondary to ligamentous and f acet hypertrophy. L5-S1: Small disc bulge with no significant bony central canal stenosis. There is thickening of the right exiting nerve root. Moderate right and mild to moderate left bony neural foraminal narrowing secondary to ligamentous and facet hypertrophy. Impression: 1. No acute osseous abnormality of the lumbar spine. 2. Degenerative changes with level by level analysis as detailed above. There is thickening of the r ight exiting nerve root at L5-S1 which could be due to inflammation or neurogenic tumor. Recommend f urther evaluation with lumbar spine MRI with and without contrast. 3. Severe atherosclerotic vascular calcifications of the abdominal aorta with severe stenosis, simil ar to the prior study. CTA of the abdomen and pelvis can be obtained for further evaluation.
[2017-10-27] MEDS ORDERED: DILAUDID 2 MG/ML SDV ONE (17:09)
[2017-10-27] MEDS ORDERED: DILAUDID 2 MG/ML SDV IVP PRN (19:56)
[2017-10-27] MEDS: DILAUDID 2 MG/ML SDV IVP PRN ×2 (20:02→23:31)
[2017-10-27] MEDS ORDERED: PROAIR HFA IH PRN (20:56)
[2017-10-28] MEDS: DILAUDID 2 MG/ML SDV IVP PRN ×2 (07:37→11:47)
[2017-10-28] MEDS ORDERED: MAGNESIUM OXIDE 250 MG PO SCH (09:00)
[2017-10-28] MEDS: MAG-OX PO SCH (09:00)
[2017-10-28] MEDS: LEXAPRO PO SCH (09:00)
[2017-10-28] MEDS: ZESTRIL PO SCH (09:00)
[2017-10-28] MEDS: DEXTROSE 5%-LR IV SOLUTION 1,000 ML IV SCH (10:37)
--- NOTE | 2017-10-28 16:51 | MRI ---
EXAM: MRI lumbar spine without and with IV contrast. DATE: 28 October 2017. HISTORY: Lower extremity pain/numbness. TECHNIQUE: Sagittal and axial T1W, T2W, and T1W postcontrast sequences of the lumbar spine along wit h sagittal IR and coronal T2W sequences were obtained using 1.2 Teodora magnet. Contrast: Omniscan - 8 ml IV. COMPARISON: CT L-spine [address] abdomen/pelvis three September 2016. FINDINGS: There are five [id number] lumbar vertebra. Minor leftward curvature of the lower lum bar spine is present, with the apex of curvature L4-5. A 2 mm anterior and 2 mm left lateral subluxa tion of L4 relative to L5 are observed. There is 2.2 mm anterolisthesis of L5 relative to S1. No ot her subluxation, acute fracture, osseous malignancy, or pars interarticularis defect is demonstrated. Lumbar vertebrae normal in height. T1W bone marrow signal is brighter than typically seen. Small, chronic Schmorl's nodes are identified at T11 and T12. Mild L1-2 disc space narrowing is detected. Remaining intervertebral discs are normal in height. No acute sacral fracture or stress reaction is identified. Small anterior bridging osteophyte is observed at the right SI joint. Conus medullaris terminates at L1. Visible spinal cord is normal. No abnormal contrast enhancement is identified wi thin the spinal cord, nerve roots, vertebral bodies, or intervertebral discs. No retroperitoneal lymphadenopathy, paraspinal mass, or aortic aneurysm is detected. Atherosclerotic plaques are present in the aorta and common iliac artery patel. Mild bilateral posterior paraspinal muscle atrophy is observed. Lung bases appear clear. Right lobe liver measures approximately 17.7 cm in length, without distinct focal mass. Mild intrahepatic biliary duct dilatation is observed. Co mmon hepatic duct appears dilated to 16 mm. CBD is 8 mm diameter. Areas of apparent signal abnormal ity within the CBD and CHD likely represent artifacts rather than true stones or sludge. No bowel ob struction or malignancy is apparent. Spleen, adrenal glands, and kidneys reveal no definitive abnorma lity. Segmental analysis: T11-12: Normal, except for left foraminal T2W bright, T1W dark, 7 mm diameter perineural cyst vs dur al ectasia. T12-L1: Minimal posterior disc bulge does not cause cord compression, central stenosis or foraminal stenosis. L1-2: Small concentric disc bulge causes mild bilateral foraminal narrowing. No central canal steno sis. L2-3: Normal, except for minor bilateral facet arthropathy. L3-4: Minor posterior disc bulge and mild facet arthropathy cause triangulation of the canal. Each foramen is patent. L4-5: Minimal anterolisthesis of L4, pseudodisc bulge, mild/moderate facet arthropathy, and moderate ligamentum flavum hypertrophy cause mild central canal stenosis, moderate right foraminal stenosis, and mild left foraminal stenosis. Tiny left facet effusion is seen. L5-S1: Minor posterior disc bulge, moderate right facet arthropathy, and minor left facet arthropath y cause minimal right foraminal narrowing. No central canal stenosis. IMPRESSIONS: 1. L-spine minor leftward curvature, mild spondylosis, mild facet arthropathy, and multilevel DDD. 2. Minor L3-4 and mild L4-5 central canal stenoses. 3. Multilevel lumbar foraminal stenoses as stated. 4. Small, old Schmorl's nodes at T11 and T12. 5. Possible osteopenia. Recommend bone densitometry. 6. Marked abdominal aortic atherosclerosis. 7. Mild hepatomegaly - etiology uncertain. Unexpected findin. Findings suspicious for central intrahepatic, CBD, and CHD enlargement. Rec ommend US or MRI /MRCP for further evaluation.
[2017-10-29] MEDS: DILAUDID 2 MG/ML SDV IVP PRN ×4 (02:51→17:57)
[2017-10-29] MEDS: DEXTROSE 5%-LR IV SOLUTION 1,000 ML IV SCH ×4 (02:52→21:10)
[2017-10-29] MEDS: MAG-OX PO SCH (08:01)
[2017-10-29] MEDS: ZESTRIL PO SCH ×2 (08:01→18:31)
[2017-10-29] MEDS: LEXAPRO PO SCH (08:01)
--- NOTE | 2017-10-29 11:20 | US ---
EXAM: Ultrasound abdomen limited. HISTORY: Biliary dilatation lumbar spine MRI. COMPARISON: Lumbar spine MRI of 1 day prior. Abdominal ultrasound 09/10/2016. TECHNIQUE: Abdominal, real time with image documentation: limited (eg, single organ, quadrant, foll ow-up) FINDINGS: Simple hepatic cyst noted measuring 1.2 x 0.9 x 1 cm. There is intrahepatic biliary dilat ation. The extrahepatic common duct measures approximately 0.8 cm. Pancreatic duct is visualized bu t not well measured. No peripancreatic abnormalities seen. The gallbladder is well distended withou t wall thickening or shadowing stones.. IMPRESSION: Intrahepatic and extrahepatic biliary dilatation of uncertain etiology. Consider MRCP for further ev aluation.
[2017-10-29] MEDS: ZANTAC PO SCH ×2 (15:46→17:19)
[2017-10-29] MEDS ORDERED: ZESTRIL PO STA (18:30)
[2017-10-30] MEDS: DEXTROSE 5%-LR IV SOLUTION 1,000 ML IV SCH ×2 (05:31→14:09)
[2017-10-30] MEDS: DILAUDID 2 MG/ML SDV IVP PRN ×2 (07:48→10:10)
[2017-10-30] MEDS: LEXAPRO PO SCH (08:47)
[2017-10-30] MEDS: MAG-OX PO SCH (08:47)
[2017-10-30] MEDS: ZESTRIL PO SCH (08:47)
[2017-10-30] MEDS ORDERED: NICODERM 21 MG TD SCH (09:00)
[2017-10-30] MEDS ORDERED: NORCO 7.5-325 PO PRN (13:10)
--- NOTE | 2017-10-30 13:22 | PN ---
DATE OF SERVICE: 10/28/17 SUBJECTIVE: The patient was admitted because of constant pain in both lower extremities. The pain seemed to improve assuming supine posture. The patient had not been able to work or missed work a few days because of the problem. She had this pain some two months ago. The pain was felt to be intermittent claudication since pedal pulses were not present. The pain is in both legs, not in one leg only. CT scan of the lumbar spine done 10/27/17 with some questionable findings. No acute osseous abnormality. Multi level of degenerative changes. There is thickening of the right exiting nerve root at L5 S1 which could be due to inflammation or neurogenic tumor may be schwannoma. Further evaluation lumbar MRI with and without contrast. Severe atherosclerotic vascular calcifications of the abdominal aorta with severe stenosis similar to the prior study. CTA of the abdomen and pelvis can be obtained to further evaluate the problem. I had reviewed the CT scan and indeed the radiologist concurred with the previous radiologist and showed to me how much of this was stenosis. The nerve root that seemed to be compromised is on the right side but the patient's pain is in both legs. The pain previously improves with rest and again is triggered by walking or exercise. The patient continued to smoke in spite of the admonition. MRI of lower lumbar spine with and without contrast scheduled and the patient was advised about the possible complication of the contrast studies. The patient was agreeable. The implications stems not from the MRI but from the contrast median that is being given. The test however would not be of any good quality for interpretation with a contrast more so ruling out a tumor. The patient was agreeable. The pain is better according to her. The granddaughter also was at the nurse's desk and asked me about the condition. She told me that she is the only one left. The nurse told me that she was given permission to hear what is going on. I did talk to her about it and repeated what I told the patient. JERED
--- NOTE | 2017-10-30 13:53 | PN ---
DATE OF SERVICE: 10/29/17 The MRI done yesterday after discussing with the radiologist in the anesthesiologist physician mentioned L5 S1 minor posterior disk bulging, moderate right facet arthropathy and minor left facet arthropathy caused minimal right foraminal narrowing. No central canal stenosis. The swelling of the right nerve with possible tumor was not confirmed on the MRI. The unexpected finding was suspicious for central intrahepatic common bile duct and common hepatic duct enlargement, recommend ultrasound. The ultrasound was done today, 10/29/17, dilatation on the extrahepatic common bile duct measuring approximately 0.8 cm. The pancreatic duct was visualized but not well measured. No peripancreatic abnormalities seen. Gallbladder is well distended without wall thickening or shadowing. The ultrasound done 09/10/16 showed that the common bile duct measurement was 1.1 cm. Pancreatic duct also was dilated but no measurements were given. There was no common bile duct stone or pancreatic stone noticed. The patient had SVS and showed normal visualization of the liver and gallbladder , proximal bile duct appears mildly dilated. There is no intrahepatic dilatation. Activity is present within the small bowel. Impression: Mildly dilated proximal duct without any intrahepatic dilatation, small bowel activity visualized and cystic duct is patent. The patient's liver enzymes then in September of 2016 were elevated, both AST and ALT as well as alkaline phosphatase. Total bilirubin was elevated 3.55 and went back to normal on the 4th day of hospitalization. AST and ALT were moderately elevated and began to return towards near normal on 09/13/16. Cytomegalovirus IgG was greater than 10, normal 0 to 0.59. CMV IgM less than 30. Pedro-Caballero virus early antigen IgG antibody less than 9, Pedro-Caballero virus nuclear antigen antibody greater than 600 interpreted as normal 0 to 17.9, positive when greater than 21.9. Hepatitis panel including hepatitis C were negative. Jaundice may have been due to the Pedro-Caballero virus, maybe combined with cytomegalovirus. The liver enzymes are now normal. The MRI and MRCP was recommended however I felt that the size of the common duct has decreased from 1.1 to 0.8 that if there was an obstruction the problem would have gotten bigger. I had told the patient about the possibility of doing an MRCP tomorrow however I felt that after reviewing these records that I probably would talk to a vascular surgeon with regards to the abdominal aortic narrowing and the intermittent claudication or persistent claudication although the foot is warm. This patient may have developed significant collateral circulation to maintain the circulation of the foot except when there is some exertion. The patient had not been smoking while in the hospital and seems like the pain has reduced in intensity and not needing a frequent medication administration to control the pain. NHID
--- NOTE | 2017-10-30 14:12 | RS.PTINEVL ---
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 - Level of function Prior to this admission, the patient could do the following:: Independent ADL's , Independent Ambulation Current Level of Function: Partially Dependent Current Equipment Used at Home: N/A Pain Assessement - Location LBP Description: Aching, Chronic Intensity: 5 Pain Behavior: Irritability, Restlessness, Facial Grimacing Pain Aggravating Factors: Changing Position, Standing, Walking Pain Alleviating Factors: Heat, Medication Interventions - Objective Patient Orientation: Person, Place, Time, Situation Current Interventions: IV's Observation: pt with tightness in B hamstrings Range of Motion - ROM Right Upper Extremity AROM: WFL's Left Upper Extremity AROM: WFL's Right Lower Extremity AROM: WFL's Left Lower Extremity AROM: WFL's (lumbar ROM WFL's with pain) Muscle Strength - Muscle Strength Right Upper Extremity Strength: Mild Weakness (grossly 4/5) Left Upper Extremity Strength: Mild Weakness (grossly 4/5) Right Lower Extremity Strength: Mild Weakness (hip flex 4-/5, knee flex/ext 4/5 , ankle DF/PF 4/5) Left Lower Extremity Strength: Mild Weakness (hip flex 4-/5, knee flex/ext 4/5, ankle DF/PF 4/5) Sensation - Sensation Right Upper Extremity Sensation: Intact/Normal Left Upper Extremity Sensation: Intact/Normal Right Lower Extremity Sensation: Impaired Left Lower Extremity Sensation: Impaired (BLE n/t worsens with standing and walking) Palpation Palpation Findings: Tenderness, Muscle Guarding (lumbar paraspinals, and L SI) Balance - Sitting Balance and Reactions Static Sitting Balance: Good Dynamic Sitting Balance: Good - Standing Balance and Reactions Static Standing Balance: Fair Dynamic Standing Balance: Fair Standing Equilibrium Reactions: Delayed Left, Delayed Right Standing Protective Reactions: Delayed Left, Delayed Right Functional Mobility - Bed Mobility Rolling R/L: Supervision Supine to Sit: CGA Sit to Supine: CGA - Transfers Sit to Stand: [facility] Stand to Sit: CGA - Safety Awareness Safety Awareness: Good CISCO INDEX SCORE: n/a Ambulation - Ambulation Assistive Device Used: Rolling Walker Orthotic/Prosthetic Device: No Distance: 110ft Assistance needed with Ambulation: [facility] Gait Deviations: Forward posture, Short stride Ambulation Comments: pt amb with flexed posture, with decreased step length Treatment time - Time with patient Length of Evaluation: 24 Total treatment time: 24 Patient Education - Education Patient Education: Education of Plan of Care Teaching Recipient: Patient Teaching Methods: Discussion Comments: discussion with patient regarding POC as well as posture to decrease strain to low back. Assessment - Assessment Problem List:: Decreased level of function, Requires training/education, Decreased safety/Risk of falls, Weakness, Pain limits previous level of function Rehab Potential: Good Further Therapy Indicated?: Yes Evaluation Complexity: HISTORY: Low (OA, LBP), EXAM OF BODY SYSTEMS: Medium ( pain, strength, gait, posture), CLINICAL PRESENTATION: Medium, CLINICAL DECISION MAKING: Low Short Term Goals GOAL #1: pt transfer sup to/from sit to/from stand independently Goal to be met by: 11/02/17 GOAL #2: pt amb with rwx with no LOB x 150ft with no increased LBP Goal to be met by: 11/02/17 GOAL #3: pt rate LBP <6/10 with activity Goal to be met by: 11/02/17 Senior Living Goals GOAL #1: pt independent with HEP Goal to be met by: 11/04/17 GOAL #2: pt rate pain <4/10 with activity Goal to be met by: 11/04/17 GOAL #3: pt amb functional household distances with rwx with no LOB Goal to be met by: 11/04/17 Plan Plan of Care: Therapeutic EX, Therapeutic Activity Modalities: Cold Pack/Cryotherapy Other:: gait training Frequency of Treatment: 1-2 X day, as tolerated Duration of Treatment: 6 days Anticipated Discharge Destination: Home Treatment Diagnosis (ICD 10 Codes): LBP M54.5, R 26.2 difficulty walking Has the Physician been added for Co-signature?: Yes
[2017-10-30 16:07] VITALS: BP 141/63; TEMP 98.2
[2017-10-30] MEDS: ZANTAC PO SCH (17:28)
--- NOTE | 2017-11-02 08:22 | HP ---
DATE OF SERVICE: 10/27/17 CHIEF COMPLAINT: Leg cramps bilateral, numbness in both legs and feet. SOURCE OF HISTORY: The patient, reliability good. HISTORY OF PRESENT ILLNESS: The patient was seen initially August 25, 2017 because of leg cramps and numbness in both lower extremities. The patient during the course of the examination was found to have no pedal pulses palpable. The patient did experience numbness or stiffness of the legs upon walking up the ramp in the office. The numbness and stiffness resolved after rest. The patient during that encounter was advised to stop smoking and was prescribed Cilostazol 50mg twice a day. The patient in last two weeks prior to presentation on 10/27/17 experienced more or less continuous cramp in the legs and pain as well as tingling extending all the way to the buttocks. The pain as described as stabbing and twisting sensation. She is not able to feel her foot when touching the ground and has numbness in the legs as well as the feet. Pain as well as the numbness and cramps does ease after assuming a supine posture for about an hour. The pain does occur promptly upon assuming an upright position and movement. The patient yesterday 10/26/17 had urinary incontinence. The patient was advised admission for further workup and control the pain. PAST PERSONAL HISTORY: The patient hypertensive and also suffered from depression after her daughter's demise, Left cataract extraction Appendectomy Hysterectomy Chronic obstructive lung disease Pneumonia Chronic tobacco use and abuse persistent. Pain in both hips as well as lower back that prompted her to go to the chiropractor Biopsy of the left breast in 1989 was negative for malignancy FAMILY HISTORY: Sister had uterine carcinoma as well as hypertension and atrial fibrillation Brother had bladder carcinoma, hypertension and valvular disease Mother had COPD and congestive heart failure Father when she was 3 years of age. SOCIAL HISTORY: The patient is a and works at the [employer], [email or web address]. She continues to smokes and smokes about a pack of cigarettes a day. MEDICATIONS: Calcium plus D3 600/200 one tablet daily Vitamin B 12 1000mcg tablet daily Magnesium oxide 250mg daily Potassium Gluconate 500mg tablet daily ProAir two puffs every 4 hours PRN Lexapro 10mg daily Lisinopril 10mg PO daily Tramadol 50mg twice a day PRN Ranitidine 150mg every morning. Cilostazol 50mg twice a day ALLERGIES: Bactrim, rash but no hives. No swelling of the tongue or lips. She complained of being chilly. REVIEW OF SYSTEMS: CONSTITUTIONAL: The patient denies any fever or chills but is fatigued because of the pain which is more or less is continuous in the last three weeks. 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 VISUAL: Denies any double vision, loss vision, blurred vision or hemospasia AUDITORY: The patient's hearing is decreased. She denies any tinnitus, pain or drainage. RESPIRATORY: The patient has cough, no significant shortness of breath with usual exertion at work. No hemoptysis. CARDIOVASCULAR: Denies any chest tightness, diaphoresis or weakness. GASTROINTESTINAL: Denies any nausea or anorexia, dysphagia, abdominal pain or change in bowel habits or blood i the stool. GENITOURINARY: The patient had incontinence yesterday. She didn't even know that she was going to urinate. She denies any burning on urination. MUSCULOSKELETAL: The patient more or less continuous pain while upright in both lower extremities. The pain is described as stabbing and twisting sensation pain. It affects from the buttocks down to the foot with numbness ENDOCRINE: Negative. INTEGUMENT: Denies or rash or pruritus or ecchymosis. Numbness in of the skin in the foot and legs. HEMATOLOGIC: No history of prolonged bleeding, spontaneous ecchymosis. The patient had anemia, mild. PSYCHIATRIC: Affect is normal and the patient is cooperative despite the pain. PHYSICAL EXAMINATION: GENERAL: We have a 73 year old female admitted to the hospital because of continuous pain in the last three weeks while in the upright posture of both legs with numbness; the legs as well as feet. The patient is till smoking. VITAL SIGNS: Temperature 97.9, pulse 88, blood pressure left 130/54 and right 144/66, respiratory rate 18, oxygen saturation 99 at room air. She is 4'11, 99 pounds, BMI 20.0. HEAD: Unremarkable, Scalp has no active dermatitis. FACE: Symmetrical and equal with no facial weakness and no redness. She denies any tenderness to palpation under pressure on the frontal or maxillary sinus areas. EYES: Pupils equal/reactive to light. About 3mm in size. Conjunctivae slightly pale. Sclerae not icteric. MOUTH: Unremarkable THROAT: No inflammation, tumors or exudate. EARS: External unremarkable. NECK: No masses. Bruit both sides. No tenderness. No rigidity. CHEST: Symmetrical and equal with good expansion LUNGS: Breath are diminished in both sides with course breath sounds more on the left side. HEART: Audible and regular with good tones. Rough systolic ejection murmur at the apical area about II to III/. ABDOMEN: Flat, soft with no remarkable tenderness, no guarding and no masses palpable and no bruit. EXTERNAL GENITALIA: Not examined RECTAL: Not performed. LOWER EXTREMITIES: Symmetrical and equal with numbness of the plantar surface. Pedal pulses are absent as well as the popliteal. ASSESSMENT: 1. Intermittent claudication lower extremities, worsening 2. Lower lumbar pain by history 3. History of osteoporosis 4. History of Kyphosis 5. History of chronic obstructive lung disease 6. History of chronic tobacco use and abuse 7. History of hypertension, on medication 8. History of depression 9. History of Jaundice 09/08/16; The patient's liver enzymes were elevated as well as total bilirubin and Alkaline phosphatase. Hepatitis panel was negative EBV early antigen IgG negative less than 9, EBV nuclear antigen antibody markedly elevated greater than 600, CMV IgG antibody greater than 10, markedly elevated CMV IgM antibody less than 30, negative. The patient had some dilatation of the common bile duct as well as pancreatic duct during the admission. The hepatobiliary scan was negative. One bile duct was 1.1cm in diameter. 10. History of pneumonia times two PLAN: 1. CT scan of lumbar spine 2. Control the pain 3. CBC and CMP and urinalysis TIME SPENT: GREATER THAN 65 MINUTES MTDD
--- NOTE | 2017-11-02 08:47 | DS ---
DATE OF SERVICE: 10/30/17 PATIENT IDENTIFICATION: 73 year old female admitted to the hospital because of severe pain in both lower extremities and the last three weeks. This had this problem since August or even before that. She had been to a chiropractor because of the lower back pain. She was told by the chiropractor that might very well have an intermittent claudication and the patient did consult me for that problem on . The patient had been prescribed Cilostazol 50mg twice a day and tries to stop smoking. The patient's problems had progressed in the three weeks, he became severe that she had been absent at work a few times. The pain become unbearable prompting the patient to come to the office. She was then admitted to the hospital. HOSPITAL COURSE: The patient was alert and oriented times four, not dyspneic or tachypneic without any cyanosis and had movement of all extremities upper and lower. She does have numbness of the legs and feet including the plantar surface. She does have bruit on both sides of the neck that are less than 50% from the previous Doppler studies. The bruit maybe a transmitted sound from the murmur since this patient has a systolic ejection murmur apical area. LUNGS: breath sounds are diminished in both sides and breath sounds are coarse but no wheezing. HEART: Audible and regular with good tones with murmur ABDOMEN: Flat and soft with no palpable masses and no bruit LOWER EXTREMITIES: no edema but numbness. Pedal pulses are absent including the popiteal. The patient during this admission has CBC borderline normal for anemia and the rest were unremarkable. The repeat CBC showed lower hgb and hct probably from hydration. RBC also is lower. Chemistry were unremarkable and particular total bilirubin, AST, ALT and alkaline phosphatase are normal. The EGFR is 82 and did rise to 93 on day of discharge 10/30/17. Urinalysis is normal. CMV IgG antibody is 8.80, elevated, Ebstein Marathon Virus early antigen IgG is normal this is essentially the same as 09/12/16. I am waiting for the IgM and nuclear antigen results. The patient on 10/27/17 admission day had a lumbar spine CT without contrast and there was some concerns about thickening of the right exiting nerve root at L5-S1 which could be due to inflammation or neurogenic tumor. MRI was recommended with and without contrast. The MRI with and without contrast was done 10/28/17 and there was no mention of any nerve inflammation. The L5-S1 was read of minor posterior disc bulging, moderate right arthropathy and minor leftward arthropathy. The radiologist mentioned unexpected findings as dilatation of the common bile duct as well as common Hepatic duct. Recommended an ultrasound or MRI/MRCP. Ultrasound of the abdomen was done showing intrahepatic and extrahepatic biliary dilatation of uncertain etiology. Consider MRCP as recommendation. I had reviewed the ultrasound and the patient' s ultrasound back in 2016 in September showed a size of the common bile duct as 1.1cm and it is now down to 0.8. The patient's diameter has decreased and I did not feel that MRCP would be helpful at this time. I do believe that maybe this patient would need an ERCP or an endoscopic ultrasound. Both of those are not available in this facility. The abdominal aorta also had severe L2 sclerotic disease which is probably the reason for the claudication extending up to the thigh. I discussed the course of treatment of the patient consisting of a referral first to Vascular surgeon and she was agreeable. ERCP and EAUS maybe needed and maybe done in the hospital where she would be for the vascular problems. I had talked to Dr. Cruz and she will be seen my him 9:00am at [address] at [facility]. I had informed the patient of this as well as the nurse the nurse coordinator. FINAL DIAGNOSES: 1. Intermittent claudication, severe bilateral lower extremities 2. Severe arthrosclerotic vascular disease, distal aorta 3. Chronic tobacco use and abuse persistent 4. Bilateral carotid bruit less than 50% by Doppler 5. History of dilated common bile duct has decreased from 1.1cm to 0.8 from September 2016 to now. 6. History of hypertension on medication NOTE: This patient was give Dilaudid 1mg every two hours as needed. The pain has regressed while in the hospital and the patient also had not been smoking during this admission. TIME SPENT: GREATER THAN 30 MINUTES MTDD
--- NOTE | 2017-11-02 09:11 | PTDC ---
Date of Evaluation:10/27/17 Diagnosis:[BLE weakness and numbness] Number of visits:[1] Last Date of Service:[10/30/17] Reason For Discharge:[DC home to follow up with neuro MD] Discharge Summary:[pt received PT eval only. pt with LE pain, numbness and weakness. pt with multiple degenerative changes noted on MRI. pt with decreased strength, balance as well as gait safety. Feel pt may benefit from further PT on outpatient basis if neuro MD feels appropriate. ] JERED
== END 2017-10-30 19:39 | disposition home or self-care (01) | DRG 93 ==
LOC: MEDSURG A 15:03
PROVIDERS: ADMIT General Practice; ATTEND General Practice
DX: R20.0 Anesthesia of skin (principal); I73.9 Peripheral vascular disease, unspecified; I70.90 Unspecified atherosclerosis; F17.210 Nicotine dependence, cigarettes, uncomplicated; M79.662 Pain in left lower leg; M79.661 Pain in right lower leg; Z72.0 Tobacco use
CPT/HCPCS: 36415; 80053; 81001; 85025; 86140; 86644; 86663; 93005; 93010; 97802

== ENCOUNTER 2018-03-19 08:11 | Outpatient (CLI) | payer OTHER | END 2018-03-19 08:12 | disposition home or self-care (01) | LOC: RHC-LAB 08:11 | PROVIDERS: ATTEND General Practice | DX: E55.9 Vitamin D deficiency, unspecified (principal); I10 Essential (primary) hypertension; R09.89 Other specified symptoms and signs involving the circulatory and respiratory systems | CPT/HCPCS: 36415; 80061; 80069; 85025 ==

== ENCOUNTER 2018-07-19 08:02 | Outpatient (CLI) | payer OTHER | END 2018-07-19 08:03 | disposition home or self-care (01) | LOC: RHC-LAB 08:02 | PROVIDERS: ATTEND General Practice | DX: E55.9 Vitamin D deficiency, unspecified (principal); K21.9 Gastro-esophageal reflux disease without esophagitis; J44.9 Chronic obstructive pulmonary disease, unspecified; I10 Essential (primary) hypertension; I73.9 Peripheral vascular disease, unspecified; Z72.0 Tobacco use; Z79.899 Other long term (current) drug therapy | CPT/HCPCS: 36415; 80053; 80061; 81001; 85025 ==

== ENCOUNTER 2019-01-07 08:25 | Inpatient (IN) ==
[2019-01-07] MEDS ORDERED: DUONEB NEB STA (08:41)
[2019-01-07] MEDS ORDERED: SOLU-MEDROL 125 MG 250 MG in SODIUM CHLORIDE 50 ML IV ONE (08:41)
[2019-01-07] MEDS ORDERED: SOLU-MEDROL 125 MG ONE (08:57)
[2019-01-07] MEDS ORDERED: TYLENOL PO STA (09:24)
--- NOTE | 2019-01-07 10:22 | DI ---
EXAM: Frontal chest HISTORY: Shortness of breath FINDINGS: Compared to 06/26/2017. Prominent heart size is again noted. There is at least mild athe rosclerotic disease. Prominent hilar shadows possibly accentuated by portable technique. Lungs are otherwise unremarkable. There is no central vascular congestion, pneumothorax or pleural fluid. IMPRESSION: 1. Prominent hilar shadows which may represent central vascular shadow accentuation secondary to AP portable technique. Regional lymphadenopathy, pneumonia or other pathology not excluded. Lungs were otherwise unremarkable. Consider follow-up full inspiration PA and lateral chest radiography.
[2019-01-07] MEDS ORDERED: SODIUM CHLORIDE 1,000 ML IV STA (10:27)
--- NOTE | 2019-01-07 11:22 | CT ---
EXAM: CTA CHEST HISTORY: Shortness of breath TECHNIQUE: CTA chest with intravenous contrast. PE protocol. Multiplanar images were provided with 3-D reconstructions. FINDINGS: No comparison. No pulmonary arterial filling defect. Moderate atherosclerotic disease. Mild cardiomegaly. No nemo cardial effusion. There are a few conglomerate subcarinal and scattered hilar lymph nodes bilaterall y which are nonspecific, largest discrete entity at this level measuring 8 mm short axis. Lungs reveal chronic interstitial changes with biapical paraseptal emphysema and pleuroparenchymal th ickening. There is mild bibasilar bronchiectasis and scarring. Lungs are mildly hyperinflated. In this complex setting, small areas of pneumonia would be difficult to exclude and managing the patient on a clinical basis is recommended. There is no central vascular congestion, pneumothorax or pleura l fluid. The bones reveal moderate degenerative changes of the spine with exaggerated thoracic kyphosis. Ther e are a few prominent left axillary lymph nodes measuring up to about 9 mm short axis. Incidental no te of prominent liver size and ectasia of the common bile duct. IMPRESSION: 1. No pulmonary arterial thromboembolism. 2. Cardiomegaly. 3. Atherosclerotic disease. 4. Chronic interstitial changes of the lungs with scattered bronchiectasis, fibrosis and biapical pl europarenchymal thickening. In this complex setting, small areas of pneumonia would be difficult to completely exclude. Managing the patient on a clinical basis is recommended. 5. Prominent mediastinal and left axillary lymph nodes, nonspecific. 6. Consider follow-up CT in 6 months.
--- NOTE | 2019-01-07 11:46 | ED.PDOC ---
General ED Provider: Dr. LYNN COHEN Chief Complaint: Shortness of Air Stated Complaint: shortness of breath Time Seen by Physician: 08:29 Mode of Arrival: Walk-In Information Source: Patient Exam Limitations: No limitations Primary Care Provider: ALLYSSA MENDENHALL MD Nursing and Triage Documentation Reviewed and Agree: Yes Does patient meet sepsis criteria?: No System Inflammatory Response Syndrome: Not Applicable Sepsis Protocol: For patient's 13 years and over: Temp is 96.8 and below OR 101 and greater Pulse >90 BPM Resp >20/minute Acutely Altered Mental Status Are patient's symptoms suggestive of a new infection, such as: -Pneumonia -Skin, Soft Tissue -Endocarditis -UTI -Bone, Joint Infection -Implantable Device -Acute Abdominal Infection -Wound Infection -Meningitis -Blood Stream Catheter Infection -Unknown Respiratory Complaint Exam Shortness of Air Complaint/Exam Onset/Duration: 1 day Symptoms Are: Still present Timing: Constant Initial Severity: Moderate Current Severity: Moderate Character: Reports Dyspnea on exertion and Orthopnea Aggravating: Reports Deep breaths, Recumbent position, URI, Smoke exposure and Weather Alleviating: Reports Bronchodilators, Oxygen, Upright position and Spontaneous resolution Associated Signs and Symptoms: Reports Cough and Wheezing; Denies Calf pain, Calf swelling, Edema, Rapid breathing, Labored breathing and Decreased intake History of Healthcare-Acquired Pneumonia: No Pulmonary Embolism Risk Factors: Reports Smoking Cardiac Risk Factors: Reports None, Smoking, Elevated lipids and Hypertension Pseudomonas Risk Factors: Reports Chronic Lung Disease Tuberculosis Risk Factors: Reports None and Smoking Home Oxygen Use: No Recent Stress Test: No Recent Echo/LV Function: No Respiratory Distress: None Stridor Present: No Tracheal Deviation: No Subcutaneous Emphysema: No Accessory Muscle Use: No Retractions: Not Present Diminished Breath Sounds: No Prolonged Expiratory Phase: No Unable to Speak Full Sentences: No Fatigue: No Leg Swelling: No Grunting Respirations: No Kussmaul Respirations: No Differential Diagnoses: CHF, Pulmonary Edema, COPD Exacerbation, Pulmonary Embolism, Bronchospasm and URI Quality Indicators for AMI: EKG in 10min. Quality Indicators for Cardiac Chest Pain: EKG in 10min. Quality Indicator For Non-Traumatic Chest Pain/Syncope: EKG Performed Related Surgical History: Reports None Review of Systems Review Of Systems Constitutional: Reports No symptoms Eyes: Reports No symptoms Ears, Nose, Mouth, Throat: Reports No symptoms Respiratory: Reports Cough, Short of air and Wheezing Cardiac: Reports No symptoms GI: Reports No symptoms : Reports No symptoms Musculoskeletal: Reports No symptoms Skin: Reports No symptoms Neurological: Reports No symptoms Endocrine: Reports No symptoms Hematologic/Lymphatic: Reports No symptoms All Other Systems: Reviewed and Negative [facility] Social History (Updated 01/07/19 @ 09:38 by RENO RAY RN) Do you feel safe at home: Yes Smoking and tobacco status: Current some day smoker Quit status: not considering quitting Second hand smoke exposure: No Alcohol intake: never Counseling given: No Substance use type: does not use Counseling given: No Special caron needs: No Are you now , , , , never or living with a partner?: In a typical week, how many times do you talk on the telephone with family, friends, or neighbors?: twice per week How often do you get together with friends or relatives?: twice per week Social isolation score (0-1 are the most socially isolated patients): 1 Household members: children Lives independently: Yes service: No FDC: No Current occupational status: employed Current occupation: [employer] History of recent travel: No Do you think of yourself as: straight/heterosexual Current gender identity: female Seatbelt use: always Helmet use: No 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 Current diet type/program: regular Physical Exam Physical Exam Appearance: Well-appearing, No pain distress and Well-nourished Eyes: RUSLAN, EOMI and Conjunctiva clear ENT: Ears normal, Nose normal and Oropharynx normal Respiratory: Airway patent, Breath sounds clear, Breath sounds equal and Respirations nonlabored Cardiovascular: RRR, Pulses normal, No rub and No murmur GI/: Soft, Nontender, No masses, Bowel sounds normal and No Organomegaly Musculoskeletal: Normal strength, ROM intact, No edema and No calf tenderness Skin: Warm, Dry and Normal color Neurological: Sensation intact, Motor intact, Reflexes intact, Cranial nerves intact, Alert and Oriented Psychiatric: Affect appropriate and Mood appropriate Interpretation Radiology Interpretation Radiology Interpretation By: Radiologist Radiology Results: No acute changes Exam Interpreted: CT Scan (negative pe ) 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 Rate: Tachy Rhythm: Sinus EKG Interpretation Rate: Tachy Rhythm: Sinus Ectopy: None Amalia: NL ST Segment: Normal Re-Evaluation Re-Evaluation Time of Re-Evaluation: 09:00 Status: Improved Appearance: NAD Lungs: Clear Skin: Warm and Dry Neuro: Alert and Oriented X3 CV: RRR Additional Comments: no chest pain improved markedly Re-Evaluation Time of Re-Evaluation: 11:44 Status: Improved Appearance: NAD Skin: Warm and Dry Neuro: Alert and Oriented X3 CV: RRR Physician Notification Case Discussed Physician Notified: pmd Time of Notification: 11:45 Critical Care Note Critical Care Note Total Time (mins): 0 Course Course Hematology/Chemistry: 01/07/19 08:52 01/07/19 08:52 Orders, Labs, Meds: Lab Review 01/07/19 01/07/19 01/07/19 08:38 08:48 08:52 WBC 12.98 H RBC 3.41 L Hgb 11.3 L Hct 33.5 L MCV 98.2 MCH 33.1 H MCHC 33.7 RDW Coeff of Beth 13.9 Plt Count 283 Immature Gran % (Auto) 0.3 Neut % (Auto) 73.3 Lymph % (Auto) 12.6 Carlton % (Auto) 13.3 H Eos % (Auto) 0.2 Baso % (Auto) 0.3 Immature Gran # (Auto) 0.0 Neut # (Auto) 9.5 H Lymph # (Auto) 1.6 Carlton # (Auto) 1.7 Eos # (Auto) 0.0 Baso # (Auto) 0.0 Puncture Site R brach O2 Saturation 87.0 L ABG pH 7.453 H ABG pCO2 37.9 ABG pO2 50.0 L* ABG HCO3 26.5 H ABG Total CO2 28 ABG Base Excess 3 H Boaz Test + O2 Delivery Device Ra FiO2 % 21.0 Sodium Potassium Chloride Carbon Dioxide Anion Gap BUN Creatinine Estimated GFR (MDRD) BUN/Creatinine Ratio Glucose Lactic Acid Calcium Total Bilirubin AST ALT Alkaline Phosphatase Total Creatine Kinase Troponin I Total Protein Albumin Globulin Albumin/Globulin Ratio Procalcitonin Influ A Molecular Assay Negative by naat Influ B Molecular Assay Negative by naat 01/07/19 01/07/19 01/07/19 08:52 08:52 08:52 WBC RBC Hgb Hct MCV MCH MCHC RDW Coeff of Beth Plt Count Immature Gran % (Auto) Neut % (Auto) Lymph % (Auto) Carlton % (Auto) Eos % (Auto) Baso % (Auto) Immature Gran # (Auto) Neut # (Auto) Lymph # (Auto) Carlton # (Auto) Eos # (Auto) Baso # (Auto) Puncture Site O2 Saturation ABG pH ABG pCO2 ABG pO2 ABG HCO3 ABG Total CO2 ABG Base Excess Boaz Test O2 Delivery Device FiO2 % Sodium 138.5 Potassium 3.66 Chloride 101.2 Carbon Dioxide 31.9 H Anion Gap 9.06 BUN 20.9 H Creatinine 0.89 Estimated GFR (MDRD) 62.00 BUN/Creatinine Ratio 23.48 Glucose 118.5 H Lactic Acid 0.76 Calcium 9.57 Total Bilirubin 0.39 AST 23.9 ALT 15.1 Alkaline Phosphatase 69.1 Total Creatine Kinase 86.9 Troponin I 0.013 Total Protein 7.27 Albumin 4.03 Globulin 3.24 Albumin/Globulin Ratio 1.24 Procalcitonin 0.22 Influ A Molecular Assay Influ B Molecular Assay Orders Category Date Time Status ABG DRAW REQUEST Stat CARDIO 01/07/19 08:38 Completed EKG-(ED ONLY) Stat CARDIO 01/07/19 08:38 Completed EKG-(IP & OP ONLY) DAILY CARDIO 01/08/19 06:00 Ordered EKG-(IP & OP ONLY) DAILY CARDIO 01/09/19 06:00 Ordered EKG-(IP & OP ONLY) DAILY CARDIO 01/10/19 06:00 Ordered NEBULIZER TREATMENT Routine CARDIO 01/07/19 12:09 Ordered NEBULIZER TREATMENT Stat CARDIO 01/07/19 08:41 Completed ACTIVITY .Complete BR CARE 01/07/19 12:07 Active INTAKE & OUTPUT Q8HR CARE 01/07/19 12:08 Active NPO REMINDER: IMAGING ONCE CARE 01/07/19 10:26 Active NPO REMINDER: IMAGING ONCE CARE 01/07/19 10:59 Active VITAL SIGNS Q4HR CARE 01/07/19 12:07 Active CARDIAC DIET DIETARY 01/07/19 Dinner Ordered ED IV/MEDIPORT/POWERPORT .ONCE EMERGENCY 01/07/19 08:38 Active ABG Stat LAB 01/07/19 08:38 Completed BLOOD CULTURE Stat LAB 01/07/19 09:10 Received CBC W/ AUTO DIFF Stat LAB 01/07/19 08:52 Completed COMPREHENSIVE METABOLIC PANEL Stat LAB 01/07/19 08:52 Completed CREATINE KINASE Q8H LAB 01/07/19 18:15 Ordered CREATINE KINASE Q8H LAB 01/08/19 02:15 Ordered CREATINE KINASE Stat LAB 01/07/19 08:52 Completed FLU A/B MOLECULAR Stat LAB 01/07/19 08:48 Completed LACTIC ACID Stat LAB 01/07/19 08:52 Completed PROCALCITONIN Stat LAB 01/07/19 08:52 Completed TROPONIN I Q8H LAB 01/07/19 18:15 Ordered TROPONIN I Q8H LAB 01/08/19 02:15 Ordered TROPONIN I Stat LAB 01/07/19 08:52 Completed 0.9 % Sodium Chloride [Saline Flush] MEDS 01/07/19 08:38 Active 1 syr IVF PRN PRN Acetaminophen [Tylenol] MEDS 01/07/19 09:24 Discontinued 650 mg PO ONCE STA Escitalopram Oxalate [Lexapro] MEDS 01/07/19 13:00 Ordered 10 mg PO QDAY Gabapentin [Neurontin] MEDS 01/08/19 09:00 Ordered 300 mg PO DAILY Gabapentin [Neurontin] MEDS 01/07/19 21:00 Ordered 600 mg PO BID Ipratropium/Albuterol Neb [Duoneb] MEDS 01/07/19 08:41 Discontinued 3 ml NEB ONCE STA Ipratropium/Albuterol Neb [Duoneb] MEDS 01/07/19 18:00 Active 3 ml NEB RTQ6H Lisinopril [Zestril] MEDS 01/08/19 09:00 Ordered 10 mg PO DAILY Lorazepam [Ativan] MEDS 01/07/19 21:00 Ordered 0.5 mg PO BID Methylprednisolone Sod Succ/Pf [Solu-Medrol 125 mg] MEDS 01/07/19 08:57 Discontinued 250 mg .ROUTE .STK-MED ONE Methylprednisolone Sod Succ/Pf [Solu-Medrol 125 mg] 250 MEDS 01/07/19 08:41 Discontinued mg 0.9 % Sodium Chloride [Sodium Chloride] 50 ml IV ONCE Methylprednisolone Sod Succ/Pf [Solu-Medrol 40 mg] MEDS 01/07/19 21:00 Active 40 mg IVP Q12HR Rosuvastatin Calcium [Crestor] MEDS 01/08/19 09:00 Ordered 10 mg PO DAILY Sodium Chloride 0.9% [Sodium Chloride] 1,000 ml MEDS 01/07/19 10:27 Active IV 125 mls/hr Sodium Chloride 0.9% [Sodium Chloride] 1,000 ml MEDS 01/07/19 12:30 Active IV 75 mls/hr potassium gluconate MEDS 01/08/19 09:00 Ordered 500 mg PO DAILY CHEST, 1V AP ONLY Stat RADS 01/07/19 08:[address] CHEST PE PROTOCOL Stat RADS 01/07/19 10:26 Completed Medications Generic Name Dose Route Start Last Admin Trade Name Freq PRN Reason Stop Dose Admin Albuterol/Ipratropium 3 ml 01/07/19 18:00 Duoneb NEB RTQ6H DOUG Escitalopram Oxalate 10 mg 01/07/19 13:00 Lexapro PO QDAY DOUG Gabapentin 300 mg 01/08/19 09:00 Neurontin PO DAILY DOUG Gabapentin 600 mg 01/07/19 21:00 Neurontin PO BID DOUG Sodium Chloride 1,000 mls @ 125 mls/hr 01/07/19 10:27 01/07/19 10:31 Sodium Chloride IV 01/07/19 18:26 125 mls/hr .Q8H STA Administration Sodium Chloride 1,000 mls @ 75 mls/hr 01/07/19 12:30 Sodium Chloride IV .[id number] DOUG Lisinopril 10 mg 01/08/19 09:00 Zestril PO DAILY DOUG Lorazepam 0.5 mg 01/07/19 21:00 Ativan PO BID DOUG Methylprednisolone Sodium Succinate 40 mg 01/07/19 21:00 Solu-Medrol 40 Mg IVP Q12HR [facility] Non-Formulary Medication 500 mg 01/08/19 09:00 Potassium Gluconate PO DAILY [facility] Rosuvastatin Calcium 10 mg 01/08/19 09:00 Crestor PO DAILY [facility] Sodium Chloride 1 syr 01/07/19 08:38 Saline Flush IVF PRN PRN To flush IV Discontinued Medications Generic Name Dose Route Start Last Admin Trade Name Freq PRN Reason Stop Dose Admin Acetaminophen 650 mg 01/07/19 09:24 01/07/19 09:30 Tylenol PO 01/07/19 09:25 650 mg ONCE STA Administration Albuterol/Ipratropium 3 ml 01/07/19 08:41 01/07/19 08:49 Duoneb FRANCISAC 01/07/19 08:42 3 ml ONCE STA Administration Methylprednisolone Sodium 54 mls @ 100 mls/hr 01/07/19 08:41 01/07/19 09:08 Succinate 250 mg/ Sodium IV 01/07/19 09:13 100 mls/hr Chloride ONCE ONE Administration Vital Signs: Temp Pulse Resp BP Pulse Ox 01/07/19 10:31 99.7 F H 99 H 24 108/52 L 94 L 01/07/19 08:27 101.3 F H 121 H 22 128/58 L 83 L Discharge Plan Discharge Patient Disposition: ADMITTED INPATIENT Discharge Problem: Acute exacerbation of chronic obstructive pulmonary disease (COPD) Instructions: COPD (Chronic Obstructive Pulmonary Disease) (ED), COPD (Chronic Obstructive Pulmonary Disease) (DC) ED Provider: LYNN COHEN Condition: Good
[2019-01-07] MEDS ORDERED: ROCEPHIN 2 GM/50 ML D5W 2 GM/50 ML BAG IV STA (13:41)
[2019-01-07] MEDS ORDERED: INFUVITE ADULT IV ONE (14:00)
[2019-01-07 14:30] VITALS: BMI 24.5
[2019-01-07] MEDS: NEURONTIN PO SCH ×2 (15:28→20:24)
[2019-01-07] MEDS: ZITHROMAX 500 MG in SODIUM CHLORIDE 250 ML IV SCH (15:29)
[2019-01-07] MEDS: LOVENOX SUBCUT SCH (15:29)
[2019-01-07] MEDS: DUONEB NEB SCH ×2 (17:08→22:41)
[2019-01-07] MEDS: SOLU-MEDROL 40 MG IVP SCH (20:23)
[2019-01-07] MEDS: ATIVAN PO SCH (20:24)
--- NOTE | 2019-01-07 21:24 | PCM ---
Allergies Allergies Allergy/AdvReac Type Severity Reaction Status Date / Time sulfamethoxazole Allergy Mild See Verified 01/07/19 08:54 [From Bactrim] comment bubble trimethoprim [From Bactrim] Allergy Mild See Verified 01/07/19 08:54 comment bubble Medications Medications: Medications Generic Name Dose Route Start Last Admin Trade Name Freq PRN Reason Stop Dose Admin Albuterol/Ipratropium 3 ml 01/07/19 18:00 01/07/19 17:08 Duoneb NEB 3 ml RTQ6H DOUG Administration Enoxaparin Sodium 30 mg 01/07/19 14:00 01/07/19 15:29 Lovenox SUBCUT 30 mg DAILY DOUG Administration Escitalopram Oxalate 10 mg 01/08/19 09:00 Lexapro PO DAILY DOUG Gabapentin 300 mg 01/08/19 09:00 Neurontin PO DAILY DOUG Gabapentin 600 mg 01/07/19 15:00 01/07/19 20:24 Neurontin PO 600 mg 1500,2100 DOUG Administration Sodium Chloride 1,000 mls @ 75 mls/hr 01/07/19 12:30 Sodium Chloride IV .[id number] DOUG Azithromycin 500 mg/ Sodium 250 mls @ 125 mls/hr 01/07/19 14:00 01/07/19 15:29 Chloride IV 01/10/19 13:59 125 mls/hr DAILY DOUG Administration CEFTRIAXONE/D5W 1 GM PREMIX 1 gm in 50 mls @ 75 mls/hr 01/08/19 09:00 Rocephin 1 Gm/50 Ml D5w IV 01/11/19 08:59 DAILY DOUG Lisinopril 10 mg 01/08/19 09:00 Zestril PO DAILY DOUG Lorazepam 0.5 mg 01/07/19 21:00 01/07/19 20:24 Ativan PO 0.5 mg BID DOUG Administration Methylprednisolone Sodium Succinate 40 mg 01/07/19 21:00 01/07/19 20:23 Solu-Medrol 40 Mg IVP 40 mg Q12HR DOUG Administration Non-Formulary Medication 500 mg 01/08/19 09:00 Potassium Gluconate PO DAILY DOUG Rosuvastatin Calcium 10 mg 01/08/19 09:00 Crestor PO DAILY DOUG Sodium Chloride 1 syr 01/07/19 08:38 Saline Flush IVF PRN PRN To flush IV Body Composition Height: 4 ft 9 in Weight: 113 lb 6.4 oz Body Mass Index (BMI): 24.5 [facility] Social History (Updated 01/07/19 @ 09:38 by RENO RAY RN) Do you feel safe at home: Yes Smoking and tobacco status: Current some day smoker Quit status: not considering quitting Second hand smoke exposure: No Alcohol intake: never Counseling given: No Substance use type: does not use Counseling given: No Special caron needs: No Are you now , , , , never or living with a partner?: In a typical week, how many times do you talk on the telephone with family, friends, or neighbors?: twice per week How often do you get together with friends or relatives?: twice per week Social isolation score (0-1 are the most socially isolated patients): 1 Household members: children Lives independently: Yes service: No prison: No Current occupational status: employed Current occupation: [employer] History of recent travel: No Do you think of yourself as: straight/heterosexual Current gender identity: female Seatbelt use: always Helmet use: No Drives intoxicated or rides with intoxicated trailer tank truck 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
[2019-01-08] MEDS: SODIUM CHLORIDE 1,000 ML IV SCH ×3 (02:43→20:22)
[2019-01-08] MEDS: DUONEB NEB SCH ×4 (04:30→22:38)
[2019-01-08] MEDS: ROCEPHIN 1 GM/50 ML D5W 1 GM/50 ML BAG IV SCH (08:59)
[2019-01-08] MEDS: LOVENOX SUBCUT SCH (08:59)
[2019-01-08] MEDS: SOLU-MEDROL 40 MG IVP SCH ×2 (08:59→20:20)
[2019-01-08] MEDS: CRESTOR PO SCH (09:00)
[2019-01-08] MEDS: ZESTRIL PO SCH (09:00)
[2019-01-08] MEDS: LEXAPRO PO SCH (09:00)
[2019-01-08] MEDS: ATIVAN PO SCH ×2 (09:00→20:20)
[2019-01-08] MEDS: NEURONTIN PO SCH ×2 (09:00→16:06)
[2019-01-08] MEDS: ZITHROMAX 500 MG in SODIUM CHLORIDE 250 ML IV SCH (09:53)
[2019-01-08] MEDS: NON-FORMULARY MEDICATION (Potassium Gluconate 500 MG) PO SCH (10:19)
[2019-01-08] MEDS ORDERED: TYLENOL PO ONE (19:58)
[2019-01-09] MEDS: DUONEB NEB SCH ×4 (05:11→22:42)
[2019-01-09] MEDS: ROCEPHIN 1 GM/50 ML D5W 1 GM/50 ML BAG IV SCH (08:25)
[2019-01-09] MEDS: SODIUM CHLORIDE 1,000 ML IV SCH ×2 (08:25→20:40)
[2019-01-09] MEDS: LOVENOX SUBCUT SCH (08:25)
[2019-01-09] MEDS: SOLU-MEDROL 40 MG IVP SCH ×2 (08:25→20:39)
[2019-01-09] MEDS: ATIVAN PO SCH ×2 (08:26→20:39)
[2019-01-09] MEDS: NEURONTIN PO SCH ×3 (08:26→20:39)
[2019-01-09] MEDS: NON-FORMULARY MEDICATION (Potassium Gluconate 500 MG) PO SCH (08:26)
[2019-01-09] MEDS: LEXAPRO PO SCH (08:26)
[2019-01-09] MEDS: CRESTOR PO SCH (08:26)
[2019-01-09] MEDS: ZESTRIL PO SCH (08:26)
[2019-01-09] MEDS ORDERED: TYLENOL PO STA (08:34)
[2019-01-09] MEDS: NICODERM 21 MG TD SCH (16:16)
[2019-01-10] MEDS: DUONEB NEB SCH ×4 (04:30→23:10)
[2019-01-10] MEDS: NEURONTIN PO SCH ×4 (06:30→20:15)
[2019-01-10] MEDS: ROCEPHIN 1 GM/50 ML D5W 1 GM/50 ML BAG IV SCH (08:33)
[2019-01-10] MEDS: SOLU-MEDROL 40 MG IVP SCH ×2 (08:34→20:15)
[2019-01-10] MEDS: CRESTOR PO SCH (08:34)
[2019-01-10] MEDS: ZESTRIL PO SCH (08:34)
[2019-01-10] MEDS: NICODERM 21 MG TD SCH (08:34)
[2019-01-10] MEDS: LEXAPRO PO SCH (08:34)
[2019-01-10] MEDS: ATIVAN PO SCH ×2 (08:34→20:15)
[2019-01-10] MEDS: LOVENOX SUBCUT SCH (08:35)
[2019-01-10] MEDS: NON-FORMULARY MEDICATION (Potassium Gluconate 500 MG) PO SCH (08:35)
--- NOTE | 2019-01-10 09:52 | HP ---
DATE OF SERVICE: 01/07/19 CHIEF COMPLAINT: Shortness of breath, chills and fever SOURCE OF HISTORY: The patient HISTORY OF PRESENT ILLNESS: The patient was working yesterday and finished work about 7:00 and went home. The patient was chilly all the time that she was at work. When she came home she had shaking chills and continued through the night. The granddaughter who lives with her found her in that condition and insisted that she go to the emergency room. The patient has mild hypoxemia with a PO2 of 50. Oxygen saturation 87% with a normal pH, normal lactic acid, slightly elevated Procalcitonin 0.22 and mild leukocytosis 12,980. Hgb 11.3, hct 33.5, plt count 283,000. Prominent hilar shadows on chest x-ray which may represent central vascular shadow accentuation secondary to AP portable technique. Regional lymphadenopathy, pneumonia or other pathology not excluded. The emergency room then opted to do a CT of the chest with contrast PE protocol, no pulmonary emboli. Cardiomegaly prominent mediastinal and left axillary lymph nodes nonspecific, consider followup in 6 months and scattered bronchiectasis fibrosis and pleuroparenchymal thickening with possible minute sizes of pneumonia. This patient had fever and chills as well as shortness of breath which indicated some acute process probably an acute material pneumonia. This patient was admitted to the hospital and the emergency room doctor did give her 125mg of Solu-Medrol in the emergency room but no antibiotics. PAST PERSONAL HISTORY: She is known to have chronic obstructive lung disease with chronic tobacco use and abuse persistent Depression Hypertension Severe claudication on both lower extremity and had surgery 01/26/2018 and had marked improvement subsequent to the operation. Total abdominal hysterectomy plus BSO FAMILY HISTORY: Some members of the family had asthma. 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 No alcoholic beverages. MEDICATIONS: Calcium plus Vitamin D 600/200 daily Camphor-Methyl salicyl menthol patch daily Chlorpheniramine maleate 4mg twice a day Vitamin D 12 1,000mcg daily Lexapro 10mg daily Gabapentin 300mg every morning Gabapentin 600mg at 1500 and 2100 Lisinopril 10mg daily Lorazepam 0.5mg twice a day PRN Magnesium Oxide 250mg daily Potassium gluconate 500mg daily Ranitidine 150mg daily Crestor 10mg daily Tramadol 50mg twice a day PRN ALLERGIES: Bactrim DS Bactrim REVIEW OF SYSTEMS: CONSTITUTIONAL: The patient has fever and chills and shortness of breaths. She is also markedly fatigued and subsequent to that problem. NET REPAIRER: The patient has some headaches no seizure problems and no ataxia. VISUAL: No blurred visions, double vision or loss of vision AUDITORY: The patient has no pain or drainage in both ears. Decreased hearing RESPIRATORY: The patient is experiencing Dyspnea and tachypnea since yesterday and worse today. No hemoptysis. CARDIOVASCULAR: Denies any chest pain, chest oppression, diaphoresis. GI: No nausea, anorexia. No vomiting or diarrhea and no abdominal pain. : The patient denies any pain on urination. She does have some stress incontinence. MUSCULOSKELETAL: the patient has kyphosis with back pain and using external patches to help with the pain. INTEGUMENT: No rash, pruritus or ecchymosis ENDOCRINE: Negative HEMATOLOGY: The patient has mild anemia but no history of prolonged bleeding or spontaneous bleeding. PSYCHIATRIC: The patient does have depression but maintained by the medication. She seemed to be improved by the anti-depressant medication that she is prescribed. PHYSICAL EXAMINATION: VITALS: Temperature 101.3, pulse 121, respiratory rate 22, blood pressure 121/58 and oxygen saturation 83% on room air. GENERAL:We have a 73 year old year old female admitted to the hospital by the emergency room because of fever, chills and shortness of breath since yesterday. HEAD: Unremarkable FACE: Symmetrical and equal with no facial weakness and no significant tenderness in the frontal and maxillary sinus areas. EYES: Pupils are equal and reactive to light. Conjunctiva slightly pale, scleritic icteric MOUTH: Unremarkable THROAT: No inflammation. No exudates NECK: NO masses and no bruit CHEST: Kyphotic. Expanding adequately LUNGS: Breath sounds are diminished but no rales or wheezing. HEART: Audible and regular with good tones and no murmurs. ABDOMEN: Soft with no remarkable tenderness. No guarding, bowel sounds are active. No masses palpable. EXTERNAL GENITALIA: No examined PELVIC/RECTAL: Not performed LOWER EXTREMITIES: No significant edema. No tenderness in the calf muscles. UPPER EXTREMITIES: Symmetrical and equal. ASSESSMENT: 1. Community acquired pneumonia (probably acute bacterial community acquired pneumonia) 2. COPD with acute respiratory failure 3. Chronic tobacco use and abuse persistent 4. History of severe peripheral arterial disease with severe pain ischemic corrected by surgery PLAN: 1. Additional blood culture, twin cite left and right side 2. Procalcitonin 3. She was given 2 grams of Rocephin initially then 1 gram daily plus Zithromax 500mg daily for 3 days probably intervenously if possible if available if not oral medication. PROGNOSIS: Guarded TIME SPENT: GREATER THAN 65 MINUTES MTDD
[2019-01-11] MEDS: SODIUM CHLORIDE 1,000 ML IV SCH (03:25)
[2019-01-11] MEDS: DUONEB NEB SCH ×2 (04:35→11:09)
[2019-01-11] MEDS: ATIVAN PO SCH (08:20)
[2019-01-11] MEDS: LEXAPRO PO SCH (08:20)
[2019-01-11] MEDS: NEURONTIN PO SCH ×2 (08:20→14:32)
[2019-01-11] MEDS: CRESTOR PO SCH (08:20)
[2019-01-11] MEDS: ZESTRIL PO SCH (08:20)
[2019-01-11] MEDS: SOLU-MEDROL 40 MG IVP SCH (08:20)
[2019-01-11] MEDS: NICODERM 21 MG TD SCH (08:21)
[2019-01-11] MEDS: NON-FORMULARY MEDICATION (Potassium Gluconate 500 MG) PO SCH (08:24)
[2019-01-11] MEDS: LOVENOX SUBCUT SCH (08:25)
[2019-01-11] MEDS ORDERED: ROCEPHIN 1 GM/50 ML D5W 1 GM/50 ML BAG IV SCH (09:00)
--- NOTE | 2019-01-11 10:54 | PN ---
DATE OF SERVICE: 01/08/19 SUBJECTIVE: The patient was admitted to the hospital of sudden acute shortness of breath with fever and chills. The patient has chronic obstructive lung disease with acute respiratory failure superimposed probably secondary to the pneumonia. The patient is a chronic smoker and today still has rales on both lung muniz. Rales a little bit more on the left side. The patient denies any headaches now. She did have a headache earlier. She denies any anterior chest pain or oppression and problems swallowing food. She no longer has chills. Blood culture is still negative. The patient has bilateral bruit on the neck louder on the left than the right. HEART: Audible and regular most of the time ABDOMEN: Soft and nontender. Bowel sounds are active. The patient had significant peripheral disease with intermittent claudication, severe and that has been corrected after the surgery. The entrance was on the right groin area. Both legs were treated however. The patient still continues to smoke. I could not feel the pedal pulses very well. VITAL SIGNS: Temperature 98.3, pulse 113/58, pulse 97, respiratory rate 20, oxygen saturation 96 at 2 liters of oxygen. No leg swelling and no remarkable tenderness or no tenderness at all. MTDD
--- NOTE | 2019-01-11 11:14 | PN ---
DATE OF SERVICE: 01/09/19 SUBJECTIVE: The patient is alert and oriented and cooperative. Not dyspneic or tachypneic but still using nasal oxygen. She did have a headache this morning and was given two Tylenol. The patient at this round 6:40pm had no headache. VITALS: Temperature 98.4, blood pressure 119/64, pulse 102, respiratory 18 and oxygen saturation 98% with 2 liters of oxygen. She has no tenderness in the frontal and maxillary sinus areas to palpation under pressure. She does have bruit on the neck left louder than the right. LUNGS: Markedly diminished breath sounds with few rales moist mid lung field more than the upper or lower. No expiratory wheezing. HEART: Audible and regular with good tones ABDOMEN: Nontender. Bowel sounds are active LOWER EXTREMITIES: No tenderness, no edema. Gram stain sputum +1 gram positive cocci, NO WBC. Sputum culture moderate growth, Normal Emily. Blood culture negative after two days. We will probably try to take her oxygen off tomorrow and see how she does with room air. This patient again is advised to stop smoking. CONDITION: Improved MTDD
[2019-01-11 14:38] VITALS: BP 156/77; TEMP 99
--- NOTE | 2019-01-13 14:00 | DS ---
DATE OF SERVICE: 01/11/19 FINAL DIAGNOSES: 1. Community acquired pneumonia most likely acute bacterial community acquired pneumonia undetermined etiology 2. COPD with acute respiratory failure 3. Chronic tobacco abuse, persistent 4. History of severe peripheral arterial disease with severe pain and ischemia that has been corrected by surgery. 5. Depression 6. Hypertension 7. History of total abdominal hysterectomy plus BSO BRIEF HISTORY OF PRESENT ILLNESS/HOSPITAL COURSE: Ms. Pastor is a pleasant patient of Dr. Khalil who presented through the emergency department with complaints of chills. She described these are shaking chills. She was insisted to go to the emergency department by her granddaughter. She was found to be hypoxic with a pO2 of 50. Oxygen saturation was 87%. She had a normal pH, normal lactic acid and a slightly elevated Procalcitonin at 0.22 and mild leukocytosis at 12,980. Hgb 11.2 and plt count 283,000. Prominent hilar shadows on the chest x-ray which may represent central vascular shadow situation. Cardiomegaly prominent mediastinal and left axillary lymph nodes, nonspecific consider followup in 6 months and a scattered bronchiectasis fibrosis and pleuroparenchymal thickening with possible minute sizes of pneumonia. The patient had fever and chills as well as shortness of breath which indicated some acute process probably an acute pneumonia. She was admitted to the hospital through the emergency department. She was given steroids intervenously. No antibiotics were given through the emergency department. She was admitted and IV steroids were continued. She was also started on Ceftriaxone IV. Again the steroids were continued. Methylprednisone. She continued on DUO NEBS. Her home medications were continued. She was given DVT prophylaxis of Lovenox SUBCUT daily. She was supplement with a nicotine patch. She was strongly encouraged to stop smoking. Followup CT of the chest in [address] of the chest has already been discussed. 01/11/19 Her WBC has returned to normal. Chemistry panel was stable. No acute abnormalities on her chemistry panel. DISCHARGE MEDICATIONS: She will be given a Prednisone jas of Prednisone 5mg twice a day for 3 days and then daily for 3 days and then stop. She will also be given Cefdinir 300mg twice a day for 5 days. PHYSICAL EXAMINATION: LUNGS: Were diminished throughout. HEART: Regular rate and rhythm. DISCHARGE DIET: Regular diet DISCHARGE ACTIVITY: Gradually resume normal activity level. DISCHARGE INSTRUCTIONS: Repeat the CT of the chest in 6 months. She will followup in the office in 6 days which will be next Thursday. She is encouraged to stop smoking. Further labs and diagnostic testing will be discussed at that appointment. TIME SPENT: GREATER THAN 30 MINUTES JERED
== END 2019-01-11 15:10 | disposition home or self-care (01) | DRG 190 ==
LOC: ED 08:25 → MEDSURG B 13:00
PROVIDERS: ADMIT General Practice; ATTEND General Practice
DX: I10 Essential (primary) hypertension; Z72.0 Tobacco use; J96.00 Acute respiratory failure, unspecified whether with hypoxia or hypercapnia; J44.1 Chronic obstructive pulmonary disease with (acute) exacerbation; J18.9 Pneumonia, unspecified organism; R05 Cough; R06.02 Shortness of breath; F32.9 Major depressive disorder, single episode, unspecified; R06.2 Wheezing; R50.9 Fever, unspecified

== ENCOUNTER 2022-03-12 19:56 | Inpatient (IN) ==
--- NOTE | 2022-03-12 20:33 | ED.PDOC ---
General ED Provider: Dr. KAVITA THOMAS MD Chief Complaint: Shortness of Air Stated Complaint: short of breath Time Seen by Provider: 03/12/22 20:27 Mode of Arrival: Wheelchair Information Source: Patient and Family Exam Limitations: No limitations Primary Care Provider: EDMAR MEJIA MD Nursing and Triage Documentation Reviewed and Agree: Yes Does patient meet sepsis criteria?: No System Inflammatory Response Syndrome: Not Applicable Sepsis Protocol: For patient's 13 years and over: Temp is 96.8 and below OR 101 and greater Pulse >90 BPM Resp >20/minute Acutely Altered Mental Status Are patient's symptoms suggestive of a new infection, such as: -Pneumonia -Skin, Soft Tissue -Endocarditis -UTI -Bone, Joint Infection -Implantable Device -Acute Abdominal Infection -Wound Infection -Meningitis -Blood Stream Catheter Infection -Unknown Respiratory Complaint Exam Shortness of Air Complaint/Exam Symptoms Are: Still present Timing: Constant Initial Severity: Moderate Current Severity: Moderate Character: Reports Dyspnea at rest (known COPD on continuous Oxygen 3LNC) Aggravating: Reports None Alleviating: Reports None Associated Signs and Symptoms: Reports Cough, Fever and Labored breathing (mild) Related History: Reports Similar episode (multiple hospitalizations for COPD Exacerbation) History of Healthcare-Acquired Pneumonia: No Pulmonary Embolism Risk Factors: Reports Smoking Cardiac Risk Factors: Reports Smoking Pseudomonas Risk Factors: Reports Chronic Lung Disease Tuberculosis Risk Factors: Reports Chronic Resp. Faliure and Smoking Home Oxygen Use: Yes (continuous @ 3LNC) Respiratory Distress: Mild Stridor Present: No Tracheal Deviation: No Subcutaneous Emphysema: No Accessory Muscle Use: No Retractions: Not Present Diminished Breath Sounds: Yes Prolonged Expiratory Phase: Yes Unable to Speak Full Sentences: No Fatigue: Yes Leg Swelling: No Grunting Respirations: No Kussmaul Respirations: No Differential Diagnoses: CHF, COPD Exacerbation, Pneumonia and SARS Review of Systems Review Of Systems Constitutional: Reports Fever and Malaise Respiratory: Reports Cough, Short of air and Wheezing Neurological: Reports Weakness (generalized,mild) All Other Systems: Reviewed and Negative [facility] Medical History Depression Hypertension Seasonal allergies Family History Mother CHF (congestive heart failure) SISTER Uterus cancer BROTHER Bladder cancer Hypertension 19 CHILD CHF (congestive heart failure) Other Asthma Social History Smoking and tobacco status: Current some day smoker Quit status: not considering quitting Second hand smoke exposure: No Alcohol intake: never Counseling given: No Substance use type: does not use Counseling given: No Tesha/church: OTHER Special tesha needs: No Agree to transfusion: Yes Adopted: No Caregiver/support person: No Foster care: No Household members: other Other Household Members: granddaughter Housing: house Marital status: W / Lives independently: Yes Daycare: no daycare Number of children: 2 Number of grandchildren: 6 Highest education level completed: 8th grade Financial difficulty paying for basics: not very hard service: No prison: No Current occupational status: employed Current occupation: [employer] Current occupational exposures/hazards: No Previous occupational history: [employer] for over 30 years Pets and animals: Yes Leisure activites: other History of recent travel: No Do you think of yourself as: straight/heterosexual Current gender identity: female Seatbelt use: always Helmet use: No Drives intoxicated or rides with intoxicated school bus driver/mechanic: No Current diet type/program: regular Water heater temperature set < 120 degrees: Yes Working smoke detector in home: Yes Fire extinguisher in home: Yes Carbon monoxide detector in home: Yes Firearms in home: No Surgical History History of heart artery stent History of vascular surgery (~01/2018) Status post hysterectomy Additional Medical History: Patient has end-stage COPD, and is dependent on supplemental Oxygen at 3LNC continuously. She has had multiple hospitalizations for COPD Exacerbation. This morning, she became much worse than is her normal. She has a deep, productive (green) cough, and when her sats were taken she was in the mid-80s. Female Reproductive History Menstrual Hx Hysterectomy: Yes (at 18 y/o) Hx Tubal Ligation: No Physical Exam Physical Exam Appearance: Reports Ill-appearing Ill-appearing: Moderate Pain Distress: None Eyes: Reports RUSLAN, EOMI and Conjunctiva clear ENT: Reports Nose normal Neck: Nonsupple (age-appropriate) Respiratory: Reports Airway patent, Breath sounds equal, Breath sounds diminished and Wheezes Cardiovascular: Reports RRR GI/: Reports Soft, Nontender and Bowel sounds normal Musculoskeletal: Reports Normal strength and ROM intact Skin: Reports Warm, Dry and Normal color Neurological: Reports Sensation intact, Motor intact, Cranial nerves intact, Alert and Oriented Psychiatric: Reports Affect appropriate and Mood appropriate Interpretation EKG Interpretation Time of EKG #1: 21:06 Rate: Tachy (101) Rhythm: Sinus Ectopy: None [place]: Left (borderline) ST Segment: Normal Interpretation: sinus tachycardia Critical Care Note Critical Care Note Total Critical Care Time (mins): 0 Course Course Hematology/Chemistry: 03/12/22 20:56 03/12/22 20:56 Orders, Labs, Meds: Lab Review 03/12/22 03/12/22 03/12/22 20:25 20:30 20:30 WBC RBC Hgb Hct MCV MCH MCHC RDW Coeff of Beth Plt Count Immature Gran % (Auto) Neut % (Auto) Lymph % (Auto) [place] % (Auto) Eos % (Auto) Baso % (Auto) Neut # (Auto) Lymph # (Auto) [place] # (Auto) Eos # (Auto) Baso # (Auto) Immature Gran # (Auto) Puncture Site Rbrach Base Excess 12.1 H O2 Saturation 86.9 L ABG pH 7.51 H* ABG pCO2 44.0 ABG pO2 47.0 L* ABG HCO3 35.1 H ABG Total CO2 36.5 H Boaz Test + Hemoglobin 1.2 Oxyhemoglobin 80.8 L Carboxyhemoglobin 5.0 H Total Hemoglobin 35.1 H FiO2 % 21.0 Sodium Potassium Chloride Carbon Dioxide Anion Gap BUN Creatinine Estimated GFR (MDRD) BUN/Creatinine Ratio Glucose Calcium Magnesium Total Bilirubin AST ALT Alkaline Phosphatase Total Creatine Kinase CK-MB (CK-2) CK-MB (CK-2) % Troponin I NT-Pro-B Natriuret Pep Total Protein Albumin Globulin Albumin/Globulin Ratio TSH Influ A Molecular Assay Negative by naat Influ B Molecular Assay Negative by naat SARS CoV-2 RNA Rapid KAYLENE Negative 03/12/22 03/12/22 20:56 20:56 WBC 6.41 RBC 3.54 L Hgb 10.7 L Hct 33.5 L MCV 94.6 MCH 30.2 MCHC 31.9 RDW Coeff of Beth 14.2 Plt Count 250 Immature Gran % (Auto) 0.5 Neut % (Auto) 78.7 H Lymph % (Auto) 7.5 L [place] % (Auto) 11.4 H Eos % (Auto) 0.8 Baso % (Auto) 1.1 Neut # (Auto) 5.1 Lymph # (Auto) 0.5 L [place] # (Auto) 0.7 Eos # (Auto) 0.1 Baso # (Auto) 0.1 Immature Gran # (Auto) 0.0 Puncture Site Base Excess O2 Saturation ABG pH ABG pCO2 ABG pO2 ABG HCO3 ABG Total CO2 Boaz Test Hemoglobin Oxyhemoglobin Carboxyhemoglobin Total Hemoglobin FiO2 % Sodium 135.0 Potassium 3.92 Chloride 100.9 Carbon Dioxide 31.1 H Anion Gap 6.92 BUN 11.3 Creatinine 0.99 Estimated GFR (MDRD) 55.00 BUN/Creatinine Ratio 11.41 Glucose 109.1 H Calcium 8.99 Magnesium 1.83 Total Bilirubin 0.22 AST 26.1 ALT 15.0 Alkaline Phosphatase 69.0 Total Creatine Kinase 144.1 H CK-MB (CK-2) 0.462 CK-MB (CK-2) % 0.3200 Troponin I < 0.012 NT-Pro-B Natriuret Pep 904.000 H Total Protein 6.90 Albumin 3.97 Globulin 2.93 Albumin/Globulin Ratio 1.35 TSH 0.636 Influ A Molecular Assay Influ B Molecular Assay SARS CoV-2 RNA Rapid KAYLENE Orders Category Date Time Status ADMIT PATIENT INPATIENT .TO [facility] (MONITORED BED) ADMISSION 03/12/22 22:38 Active ABG DRAW REQUEST Stat CARDIO 03/12/22 20:33 Completed EKG-(ED ONLY) Stat CARDIO 03/12/22 20:34 Completed NEBULIZER TREATMENT Routine CARDIO 03/12/22 21:31 Active NEBULIZER TREATMENT Routine CARDIO 03/12/22 22:44 Active NEBULIZER TREATMENT Stat CARDIO 03/12/22 21:31 Completed OXYGEN Routine CARDIO 03/12/22 22:43 Active ACTIVITY .BR with BRP CARE 03/12/22 22:38 Active INTAKE & OUTPUT Q8HR CARE 03/12/22 22:38 Active TELEMETRY MONITORING TELE CARE 03/12/22 22:38 Active VITAL SIGNS Q8HR CARE 03/12/22 22:38 Active REGULAR DIET DIETARY 03/12/22 Breakfast Ordered ED APPLY O2 .ONCE EMERGENCY 03/12/22 20:34 Active ABG COOX Stat LAB 03/12/22 20:25 Completed CBC W/ AUTO DIFF Stat LAB 03/12/22 20:56 Completed COMPREHENSIVE METABOLIC PANEL Stat LAB 03/12/22 20:56 Completed COVID [SARS COV-2 RNA RAPID KAYLENE] Stat LAB 03/12/22 20:30 Completed CREATINE KINASE Stat LAB 03/12/22 20:56 Completed FLU A & B MOLECULAR [FLU A/B MOLECULAR] Stat LAB 03/12/22 20:30 Completed MAGNESIUM Stat LAB 03/12/22 20:56 Completed MOLECULAR GROUP A STREP Stat LAB 03/12/22 20:30 Completed NT-PROBNP Stat LAB 03/12/22 20:56 Completed TROPONIN I Stat LAB 03/12/22 20:56 Completed TSH [THYROID STIMULATING HORMONE] Stat LAB 03/12/22 20:56 Completed Albuterol Sulfate 0.083% Neb [Albuterol 0.083% Neb] MEDS 03/12/22 21:30 Discontinued 2.5 mg NEB ONCE ONE Albuterol Sulfate 0.083% Neb [Albuterol 0.083% Neb] MEDS 03/12/22 22:51 Active 2.5 mg NEB Q2HR PRN Budesonide [Pulmicort 0.5 mg/2 ml] MEDS 03/13/22 06:00 Active 0.5 mg NEB RTBID Calcium Carbonate/Vitamin D3 [Calcium 500 + Vit D 5 Mcg MEDS 03/13/22 09:00 Active (200 Iu) Tablet] 1 each PO DAILY Ceftriaxone 1 gm Vial [Rocephin 1 gm Vial] MEDS 03/12/22 21:30 Discontinued 1 gm IM ONCE ONE Ceftriaxone/D5w 1 gm Premix [Rocephin 1 gm/50 ml D5w] MEDS 03/13/22 21:00 Active 1 gm in 50 ml IV DAILY@2100 Fluticasone Propionate [Flonase] MEDS 03/13/22 09:00 Active 1 spray WINNIE BID Gabapentin [Neurontin] MEDS 03/13/22 09:00 Active 300 mg PO QAM Gabapentin [Neurontin] MEDS 03/13/22 15:00 Active 600 mg PO 1500,2100 Guaifenesin [Mucinex] MEDS 03/13/22 09:00 Active 600 mg PO BID Ipratropium/Albuterol Neb [Duoneb] MEDS 03/13/22 06:00 Active 3 ml NEB RTQID Lidocaine HCl/Pf [Lidocaine HCl 1% Sdv] MEDS 03/12/22 21:30 Discontinued 2.1 ml IM ONCE STA Lisinopril [Zestril] MEDS 03/13/22 09:00 Active 20 mg PO DAILY Methylprednisolone Sod Succ/Pf [Solu-Medrol 125 mg] MEDS 03/12/22 21:30 Disc ontinued 125 mg IM ONCE ONE Methylprednisolone Sod Succ/Pf [Solu-Medrol 125 mg] MEDS 03/13/22 00:00 Active 60 mg IVP Q6HR Metoprolol Succinate [Toprol Xl] MEDS 03/12/22 23:00 Active 50 mg PO DAILY Spironolactone [Aldactone] MEDS 03/12/22 23:00 Active 25 mg PO DAILY camphor-methyl salicyl-menthol [Salonpas] MEDS 03/13/22 09:00 Pending 1 patch TP QAM cyanocobalamin (vitamin B-12) [Vitamin B-12] MEDS 03/13/22 09:00 Pending 1,000 mcg PO DAILY magnesium oxide MEDS 03/13/22 09:00 Pending 250 mg PO DAILY potassium gluconate MEDS 03/13/22 09:00 Pending 500 mg PO DAILY RESUSCITATION STATUS Routine OTHERS 03/12/22 22:38 Ordered CHEST, 1V AP ONLY Stat RADS 03/12/22 20:34 Completed Medications Generic Name Dose Route Start Last Admin Trade Name Freq PRN Reason Stop Dose Admin Acetaminophen 650 mg 03/13/22 00:59 03/13/22 01:26 Acetaminophen 325 Mg Tablet PO 650 mg Q6H PRN Administration pain/fever Albuterol Sulfate 2.5 mg 03/12/22 22:51 Albuterol Sulfate 0.083% Vial.Neb NEB Q2HR PRN Bronchospasm Albuterol/Ipratropium 3 ml 03/13/22 06:00 03/13/22 05:00 Ipratropium/Albuterol Vial.Neb NEB 3 ml RTQID DOUG Administration Budesonide 0.5 mg 03/13/22 06:00 03/13/22 05:00 Budesonide 0.5 Mg/2 Ml Vial.Neb NEB 0.5 mg RTBID DOUG Administration Calcium/Vitamin D 1 each 03/13/22 09:00 Calcium Carbonate/Vitamin D3 500 Mg/5 Mcg(200iu) 1 Each Tablet PO DAILY [facility] Fluticasone Propionate 1 spray 03/13/22 09:00 Fluticasone Propionate 16 Gm Nasal [place] WINNIE BID [facility] Gabapentin 300 mg 03/13/22 09:00 Gabapentin 300 Mg Capsule PO QAM [facility] Gabapentin 600 mg 03/13/22 15:00 Gabapentin 300 Mg Capsule PO 1500,2100 [facility] Guaifenesin 600 mg 03/13/22 09:00 Guaifenesin 600 Mg Tablet.Er PO BID [facility] CEFTRIAXONE/D5W 1 GM PREMIX 1 gm in 50 mls @ 75 mls/hr 03/13/22 21:00 Rocephin 1 Gm/50 Ml D5w IV 03/16/22 20:59 DAILY@2100 [facility] Lisinopril 20 mg 03/13/22 09:00 Lisinopril 10 Mg Tablet PO DAILY [facility] Methylprednisolone Sodium Succinate 60 mg 03/13/22 00:00 03/13/22 06:00 Methylprednisolone Sod Succ/Pf 125 Mg/2 Ml Vial IVP 60 mg Q6HR [facility] Administration Metoprolol Succinate 50 mg 03/12/22 23:00 03/13/22 01:13 Metoprolol Succinate 50 Mg Tab.Er.24h PO Not Given DAILY [facility] Non-Formulary Medication 1 patch 03/13/22 09:00 Camphor-Methyl Salicyl-Menthol [Salonpas] TP QAM [facility] Non-Formulary Medication 500 mg 03/13/22 09:00 Potassium Gluconate PO DAILY [facility] Non-Formulary Medication 250 mg 03/13/22 09:00 Magnesium Oxide PO DAILY [facility] Non-Formulary Medication 1,000 mcg 03/13/22 09:00 Cyanocobalamin (Vitamin B-12) [Vitamin B-12] PO DAILY [facility] Sodium Chloride 1 syr 03/12/22 23:45 0.9% Sodium Chloride 10 Ml Disp.Syrin IVF PRN PRN To flush IV Spironolactone 25 mg 03/12/22 23:00 03/13/22 01:13 Spironolactone 25 Mg Tablet PO Not Given DAILY [facility] Discontinued Medications Generic Name Dose Route Start Last Admin Trade Name Freq PRN Reason Stop Dose Admin Albuterol Sulfate 2.5 mg 03/12/22 21:30 03/12/22 21:40 Albuterol Sulfate 0.083% Vial.Neb NEB 03/12/22 21:31 2.5 mg ONCE ONE Administration Ceftriaxone Sodium 1 gm 03/12/22 21:30 03/12/22 21:44 Ceftriaxone 1 Gm Vial 1 Gm Vial IM 03/12/22 21:31 1 gm ONCE ONE Administration Furosemide 20 mg 03/12/22 23:45 03/13/22 01:26 Furosemide Inj 20 Mg/2 Ml Vial IVP 03/12/22 23:46 20 mg ONCE ONE Administration Lidocaine HCl 2.1 ml 03/12/22 21:30 03/12/22 21:44 Lidocaine Hcl/Pf 1% 5 Ml Vial IM 03/12/22 21:31 2.1 ml ONCE STA Administration Methylprednisolone Sodium Succinate 125 mg 03/12/22 21:30 03/12/22 21:45 Methylprednisolone Sod Succ/Pf 125 Mg/2 Ml Vial IM 03/12/22 21:31 125 mg ONCE ONE Administration Vital Signs: Temp Pulse Resp BP Pulse Ox 03/12/22 20:00 100.5 F H 111 H 24 H 177/76 H 86 L Patient presents with productive cough and low Oxygen saturation. She has COPD and is Oxygen-dependant. An ABG was done on arrival, notable for low pO2 (47), high CO2 (36.5), and elevated pH (7.51). She was placed on supplemental Oxygen and her sats normalized. Labs were obtained, an elevated BNP (904) was the only clinically significant abnormal value. She was swabbed for Flu/CoVid, all negative. She was given steroids and a neb to see if we could normalize her saturation. She really didn't want to be hospitalized. However, when the suppl emental Oxygen was discontinued, her saturation dropped well below normal values, even though she was at rest. She was given Rocephin prophylactically. She had a mild fever (100.5), tachycardia (111), and tachypnea (24), so LA/PCT/blood cultures were obtained. Family requested a CoVid antigen for confirmation. Her daughter convinced her to be admitted and she consented. She was admitted to the medical floor with admitting diagnoses COPD Exacerbation, low Oxygen saturation. She was in stable condition when transported from the ED to the medical floor. Discharge Plan Discharge Patient Disposition: ADMITTED INPATIENT Discharge Problem: Chronic obstructive pulmonary disease with acute exacerbation, Low oxygen saturation Did you review [place] [employer]ER MACHINE [employer] for ALL controlled substances?: Not Applicable ED Provider: KAVITA THOMAS Condition: Stable Physician Progress Note: []
[2022-03-12 21:02] LABS: BASOPHILS # (AUTO) 0.1 K/uL (0-0.2); BASOPHILS % (AUTO) 1.1 % (0.0-3.0); EOSINOPHILS # (AUTO) 0.1 K/ul (0.0-0.7); EOSINOPHILS % (AUTO) 0.8 % (0.0-7.0); HEMATOCRIT 33.5 % (37.0-47.0); HEMOGLOBIN 10.7 g/dl (12.0-16.0); IMMATURE GRANULOCYTE % (AUTO) 0.5 % (0.0-5.0); LYMPHOCYTES # (AUTO) 0.5 K/uL (0.60-3.4); LYMPHOCYTES % (AUTO) 7.5 (10.0-50.0); MEAN CORPUSCULAR HEMOGLOBIN 30.2 pg (27.0-31.0); MEAN CORPUSCULAR HGB CONC 31.9 (31.8-35.4); MEAN CORPUSCULAR VOLUME 94.6 fl (81.0-99.0); MONOCYTES # (AUTO) 0.7 K/uL (0.4-2.0); MONOCYTES % (AUTO) 11.4 (0-10); NEUTROPHILS # (AUTO) 5.1 K/ul (2.0-6.9); NEUTROPHILS % (AUTO) 78.7 % (42.2-75.2); PLATELET COUNT 250 10^3/uL (140-440); RDW COEFFICIENT OF VARIATION 14.2 % (11.6-14.8); RED BLOOD COUNT 3.54 10^6/ul (4.20-5.40); WHITE BLOOD COUNT 6.41 K/ul (4.6-10.2)
[2022-03-12 21:03] LABS: ABG PH 7.51 (7.35-7.45); BEecf 12.1 (-2.0-3.0); HCO3 35.1 (21-28)
[2022-03-12 21:04] LABS: ABG O2 HGB 80.8 % (95-100); MetHb 1.2 (0-1.5); TCO2 36.5 (19-24); sO2 86.9 % (94-98); tHb 35.1 g/dl (11.7-17.4)
[2022-03-12 21:14] LABS: MOLECULAR FLU A NEGATIVE BY NAAT (NEGATIVE); MOLECULAR FLU B NEGATIVE BY NAAT (NEGATIVE)
[2022-03-12 21:15] LABS: ALBUMIN 3.97 g/dL (3.5-5.0); ASPARTATE AMINO TRANSFERASE 26.1 U/L (14-36); BILIRUBIN,TOTAL 0.22 mg/dL (0.2-1.3); BLOOD UREA NITROGEN 11.3 mg/dL (7-17); CALCIUM 8.99 mg/dL (8.4-10.2); CARBON DIOXIDE 31.1 mmol/L (22-30.0); CHLORIDE 100.9 mmol/L (98-107); CREATINE KINASE 144.1 U/L (30-135); CREATININE 0.99 mg/dL (0.60-1.30); GLUCOSE 109.1 mg/dL (74-106); MAGNESIUM 1.83 mg/dL (1.6-2.3)
[2022-03-12 21:21] LABS: POTASSIUM 3.92 mmol/L (3.5-5.1)
--- NOTE | 2022-03-12 21:27 | DI ---
EXAM: Single view of the chest. History: Cough, short of breath Comparison: Chest radiograph 09/26/2020 FINDINGS: Heart size is normal. No consolidation. No pleural fluid and no pneumothorax. No acute osseous abnormalities. Impression: No acute cardiopulmonary process
[2022-03-12 21:30] LABS: CREATINE KINASE MB 0.462 ng/ml (0.0-2.38)
[2022-03-12] MEDS ORDERED: ALBUTEROL 0.083% NEB NEB ONE (21:30)
[2022-03-12] MEDS ORDERED: LIDOCAINE HCL 1% SDV IM STA (21:30)
[2022-03-12] MEDS ORDERED: ROCEPHIN 1 GM VIAL IM ONE (21:30)
[2022-03-12] MEDS ORDERED: SOLU-MEDROL 125 MG IM ONE (21:30)
[2022-03-12 21:31] LABS: TROPONIN I < 0.012 ng/ml (0.0000-0.120)
[2022-03-12 21:46] LABS: THYROID STIMULATING HORMONE 0.636 uIU/L (0.465-4.68)
[2022-03-12 21:46] LABS: SARS COV-2 RNA RAPID NAAT NEGATIVE (NEGATIVE)
[2022-03-12] MEDS ORDERED: ALBUTEROL 0.083% NEB NEB PRN (22:51)
[2022-03-12] MEDS ORDERED: LASIX IVP ONE (23:45)
[2022-03-13 00:51] VITALS: BMI 22.6
[2022-03-13] MEDS ORDERED: TYLENOL PO PRN (00:59)
[2022-03-13] MEDS: SOLU-MEDROL 125 MG IVP SCH ×4 (01:07→17:18)
[2022-03-13] MEDS: TOPROL XL PO SCH ×2 (01:13→09:03)
[2022-03-13] MEDS: ALDACTONE PO SCH ×2 (01:13→09:04)
[2022-03-13] MEDS: PULMICORT 0.5 MG/2 ML NEB SCH ×2 (05:00→20:35)
[2022-03-13] MEDS: DUONEB NEB SCH ×4 (05:00→20:35)
[2022-03-13] MEDS ORDERED: MAGNESIUM OXIDE 250 MG PO SCH (09:00)
[2022-03-13] MEDS: MAG-OX PO SCH (09:03)
[2022-03-13] MEDS: FLONASE NAS SCH ×2 (09:03→21:11)
[2022-03-13] MEDS: NEURONTIN PO SCH ×3 (09:04→21:09)
[2022-03-13] MEDS: NON-FORMULARY MEDICATION (Camphor-Methyl Salicyl-Menthol [Salonpas] 3.1-10-6 % Adhesive Pa TP SCH (09:04)
[2022-03-13] MEDS: MUCINEX PO SCH ×2 (09:04→21:10)
[2022-03-13] MEDS: ZESTRIL PO SCH (09:04)
[2022-03-13] MEDS: CALCIUM 500 + VIT D 5 MCG (200 IU) TABLET PO SCH (09:04)
[2022-03-13] MEDS: POTASSIUM GLUCONATE 500 MG PO SCH (09:05)
--- NOTE | 2022-03-13 10:50 | PCM.PROG ---
Date Seen by Provider: 03/13/22 Time Seen by Provider: 09:30 Subjective: Remains dyspneic. Requiring supplemental oxygen. Objective: Vitals: T=96.7 F, P=88, R=18, TZ=573/67, SPO2=92 Appears chronically ill and weak. No respiratory distress. HEENT: [] Neck: [] Lungs: [] Breath sounds decreased though equal. CVS: [] RRR Abdomen: [] Extremities: [] Neurological: [] Skin: [] Lab/Tests/Diagnostic Imaging: [] (1) Low oxygen saturation: Status: Acute Code(s): R79.81 - Abnormal blood-gas level SNOMED Code(s): 868833009 (2) Chronic obstructive pulmonary disease with acute exacerbation: Status: Acute Code(s): J44.1 - Chronic obstructive pulmonary disease with (acute) exacerbation SNOMED Code(s): 021218913 Plan: Continue present care. May need home oxygen.
[2022-03-13 16:36] LABS: BILIRUBIN,URINE Negative (NEGATIVE); CLARITY,URINE Clear (CLEAR); COLOR,URINE Yellow (YELLOW); GLUCOSE, URINE (UA) Negative (NEGATIVE); KETONES,URINE Negative (NEGATIVE); LEUKOCYTE ESTERASE ,URINE Negative (NEGATIVE); NITRITE,URINE Negative (NEGATIVE); PH,URINE 6.5 (5-9); PROTEIN,URINE Trace (NEGATIVE); URINE, BLOOD Trace-intact (NEGATIVE); UROBILINOGEN,URINE 0.2 (0.2)
[2022-03-13 16:40] LABS: URINE RBC, MICROSCOPIC 30-50 (0-2)
[2022-03-13 16:41] LABS: BACTERIA,URINE 2+ (NOT PRESENT)
[2022-03-13] MEDS: ROCEPHIN 1 GM/50 ML D5W 1 GM/50 ML BAG IV SCH (21:10)
[2022-03-14] MEDS: SOLU-MEDROL 125 MG IVP SCH ×4 (02:28→17:31)
[2022-03-14] MEDS: PULMICORT 0.5 MG/2 ML NEB SCH ×2 (04:30→19:35)
[2022-03-14] MEDS: DUONEB NEB SCH ×4 (04:30→19:35)
[2022-03-14 05:15] LABS: BASOPHILS % (AUTO) 0.1 % (0.0-3.0); HEMATOCRIT 35.5 % (37.0-47.0); HEMOGLOBIN 11.3 g/dl (12.0-16.0); IMMATURE GRANULOCYTE % (AUTO) 0.3 % (0.0-5.0); LYMPHOCYTES % (AUTO) 8.6 (10.0-50.0); MEAN CORPUSCULAR HEMOGLOBIN 30.2 pg (27.0-31.0); MEAN CORPUSCULAR HGB CONC 31.8 (31.8-35.4); MEAN CORPUSCULAR VOLUME 94.9 fl (81.0-99.0); MONOCYTES # (AUTO) 0.7 K/uL (0.4-2.0); MONOCYTES % (AUTO) 5.9 (0-10); NEUTROPHILS # (AUTO) 10.3 K/ul (2.0-6.9); NEUTROPHILS % (AUTO) 85.1 % (42.2-75.2); PLATELET COUNT 271 10^3/uL (140-440); RDW COEFFICIENT OF VARIATION 14.5 % (11.6-14.8); RED BLOOD COUNT 3.74 10^6/ul (4.20-5.40); WHITE BLOOD COUNT 12.09 K/ul (4.6-10.2)
[2022-03-14 05:30] LABS: ALANINE AMINOTRANSFERASE 14.5 U/L (0-35); ALBUMIN 3.78 g/dL (3.5-5.0); ALKALINE PHOSPHATASE 59.9 U/L (53-141); ASPARTATE AMINO TRANSFERASE 27.5 U/L (14-36); BILIRUBIN,TOTAL 0.22 mg/dL (0.2-1.3); BLOOD UREA NITROGEN 18.3 mg/dL (7-17); CALCIUM 9.07 mg/dL (8.4-10.2); CARBON DIOXIDE 31.9 mmol/L (22-30.0); CHLORIDE 103.8 mmol/L (98-107); CREATININE 0.82 mg/dL (0.60-1.30); GLUCOSE 127.2 mg/dL (74-106); POTASSIUM 3.97 mmol/L (3.5-5.1); SODIUM 137.5 mmol/L (134.5-145); TOTAL PROTEIN 6.82 g/dL (6.3-8.2)
[2022-03-14] MEDS: FLONASE NAS SCH ×2 (08:44→21:16)
[2022-03-14] MEDS: MAG-OX PO SCH (08:44)
[2022-03-14] MEDS: MUCINEX PO SCH ×2 (08:45→21:16)
[2022-03-14] MEDS: ALDACTONE PO SCH (08:45)
[2022-03-14] MEDS: ZESTRIL PO SCH (08:45)
[2022-03-14] MEDS: NEURONTIN PO SCH ×3 (08:45→21:17)
[2022-03-14] MEDS: TOPROL XL PO SCH (08:45)
[2022-03-14] MEDS: CALCIUM 500 + VIT D 5 MCG (200 IU) TABLET PO SCH (08:45)
--- NOTE | 2022-03-14 10:08 | PCM.PROG ---
Date Seen by Provider: 03/14/22 Time Seen by Provider: 10:04 Subjective: dx copd, hypoxia Objective: Vitals: T=97.6 F, P=82, R=18, NB=581/54, SPO2=99 HEENT: []conjunctiva clear Neck: []supple Lungs: [] effort clear CVS: []rrr Abdomen: []nondistended Extremities: []gloria Neurological: []alert Skin: []pink Lab/Tests/Diagnostic Imaging: [] wbc 12 (1) Low oxygen saturation: Status: Acute Code(s): R79.81 - Abnormal blood-gas level SNOMED Code(s): 518362221 (2) Chronic obstructive pulmonary disease with acute exacerbation: Status: Acute Code(s): J44.1 - Chronic obstructive pulmonary disease with (acute) exacerbation SNOMED Code(s): 551647139 Plan: check urine culture, check 3 step oxygen needs, start po levaquin 500 qday, continue steroids and duo nebs
--- NOTE | 2022-03-14 10:08 | PCM.DC ---
Final Diagnosis: copd exacerbation Physical Exam Appearance: Well-appearing Ill-appearing: None Pain Distress: None Eyes: Conjunctiva clear ENT: Oropharynx normal Neck: Supple Respiratory: Airway patent, Breath sounds clear and Breath sounds equal Cardiovascular: RRR GI/: Nontender Musculoskeletal: ROM intact Skin: Warm and Dry Neurological: Alert and Oriented Psychiatric: Affect appropriate (1) Low oxygen saturation: Status: Acute Code(s): R79.81 - Abnormal blood-gas level SNOMED Code(s): 799437172 (2) Chronic obstructive pulmonary disease with acute exacerbation: Status: Acute Code(s): J44.1 - Chronic obstructive pulmonary disease with (acute) exacerbation SNOMED Code(s): 105542516 Reason for Hospitalization: short of breath and hypoxic Prognosis/Condition at Discharge: fair Medications at Discharge: medrol, oxygen, albuterol inhaler, levaquin and home meds Lab/Diagnostics: [id number] Education Provided to Patient and Family: how to use an inhaler Follow-ups: see your doctor Discharge Disposition: Home Hospital Course: pt improved, pt oxygen dependent Plan: discharge home
--- NOTE | 2022-03-14 10:12 | PCM.PROG ---
Date Seen by Provider: 03/14/22 Time Seen by Provider: 10:09 Subjective: dx. carbon dioxide retention, chf Objective: Vitals: T=97.6 F, P=82, R=18, JY=818/54, SPO2=99 HEENT: []conjunctiva clear Neck: []supple Lungs: [] effort clear CVS: []rrr Abdomen: []nondistended Extremities: []warm and dry Neurological: []semiconcious Skin: []warm and dry Lab/Tests/Diagnostic Imaging: [] pH 7.12 (1) Low oxygen saturation: Status: Acute Code(s): R79.81 - Abnormal blood-gas level SNOMED Code(s): 178079821 (2) Chronic obstructive pulmonary disease with acute exacerbation: Status: Acute Code(s): J44.1 - Chronic obstructive pulmonary disease with (acute) exacerbation SNOMED Code(s): 801474109 Plan: pt intubated for better ventilation and airway protection by Jasvir henderson anesthesia, propofol sedation IV drip started, pt transport to [facility]
--- NOTE | 2022-03-14 11:00 | PCM.PROG ---
Date Seen by Provider: 03/14/22 Time Seen by Provider: 10:58 Subjective: dx. copd, hypoxia Objective: Vitals: T=97.6 F, P=82, R=18, GB=903/54, SPO2=99 HEENT: []conjunctiva clear Neck: []supple Lungs: [] effort clear CVS: []rrr Abdomen: []nondistended Extremities: []gloria Neurological: []alert Skin: []warm and dry Lab/Tests/Diagnostic Imaging: [] wbc 12, (1) Low oxygen saturation: Status: Acute Code(s): R79.81 - Abnormal blood-gas level SNOMED Code(s): 579306446 (2) Chronic obstructive pulmonary disease with acute exacerbation: Status: Acute Code(s): J44.1 - Chronic obstructive pulmonary disease with (acute) exacerbation SNOMED Code(s): 071690013 Plan: check urine culture, start po levaquin, contineu duo and solumedrol, obtain 3 step oxygen dependency
[2022-03-14] MEDS: NON-FORMULARY MEDICATION (Camphor-Methyl Salicyl-Menthol [Salonpas] 3.1-10-6 % Adhesive Pa TP SCH (13:30)
[2022-03-14] MEDS: POTASSIUM GLUCONATE 500 MG PO SCH (13:31)
[2022-03-14] MEDS: ROCEPHIN 1 GM/50 ML D5W 1 GM/50 ML BAG IV SCH (21:16)
[2022-03-15] MEDS: SOLU-MEDROL 125 MG IVP SCH ×3 (00:28→12:03)
[2022-03-15] MEDS: DUONEB NEB SCH ×2 (04:40→10:45)
[2022-03-15] MEDS: PULMICORT 0.5 MG/2 ML NEB SCH (04:40)
[2022-03-15 05:13] VITALS: BP 97/51; TEMP 97.7
[2022-03-15 05:28] LABS: BASOPHILS % (AUTO) 0.1 % (0.0-3.0); EOSINOPHILS % (AUTO) 0.1 % (0.0-7.0); HEMATOCRIT 34.7 % (37.0-47.0); IMMATURE GRANULOCYTE # (AUTO) 0.1 (0.0-1.0); IMMATURE GRANULOCYTE % (AUTO) 0.5 % (0.0-5.0); LYMPHOCYTES # (AUTO) 0.7 K/uL (0.60-3.4); LYMPHOCYTES % (AUTO) 5.6 (10.0-50.0); MEAN CORPUSCULAR HEMOGLOBIN 30.6 pg (27.0-31.0); MEAN CORPUSCULAR HGB CONC 31.7 (31.8-35.4); MEAN CORPUSCULAR VOLUME 96.4 fl (81.0-99.0); MONOCYTES # (AUTO) 0.5 K/uL (0.4-2.0); MONOCYTES % (AUTO) 3.8 (0-10); NEUTROPHILS # (AUTO) 10.8 K/ul (2.0-6.9); NEUTROPHILS % (AUTO) 89.9 % (42.2-75.2); PLATELET COUNT 293 10^3/uL (140-440); RDW COEFFICIENT OF VARIATION 14.7 % (11.6-14.8); WHITE BLOOD COUNT 11.99 K/ul (4.6-10.2)
[2022-03-15 05:46] LABS: ALANINE AMINOTRANSFERASE 15.9 U/L (0-35); ALBUMIN 3.55 g/dL (3.5-5.0); ALKALINE PHOSPHATASE 55.1 U/L (53-141); ASPARTATE AMINO TRANSFERASE 22.4 U/L (14-36); BILIRUBIN,TOTAL 0.22 mg/dL (0.2-1.3); CALCIUM 8.68 mg/dL (8.4-10.2); CARBON DIOXIDE 32.9 mmol/L (22-30.0); CHLORIDE 103.8 mmol/L (98-107); CREATININE 0.9 mg/dL (0.60-1.30); GLUCOSE 132.4 mg/dL (74-106); POTASSIUM 4.16 mmol/L (3.5-5.1); SODIUM 137.2 mmol/L (134.5-145); TOTAL PROTEIN 6.46 g/dL (6.3-8.2)
[2022-03-15] MEDS ORDERED: LEVAQUIN PO SCH (06:30)
[2022-03-15] MEDS: ALDACTONE PO SCH (08:40)
[2022-03-15] MEDS: CALCIUM 500 + VIT D 5 MCG (200 IU) TABLET PO SCH (08:40)
[2022-03-15] MEDS: MAG-OX PO SCH (08:40)
[2022-03-15] MEDS: ZESTRIL PO SCH (08:41)
[2022-03-15] MEDS: NEURONTIN PO SCH (08:41)
[2022-03-15] MEDS: TOPROL XL PO SCH (08:41)
[2022-03-15] MEDS: MUCINEX PO SCH (08:41)
[2022-03-15] MEDS: POTASSIUM GLUCONATE 500 MG PO SCH (08:41)
[2022-03-15] MEDS: FLONASE NAS SCH (08:42)
[2022-03-15] MEDS: NON-FORMULARY MEDICATION (Camphor-Methyl Salicyl-Menthol [Salonpas] 3.1-10-6 % Adhesive Pa TP SCH (08:42)
--- NOTE | 2022-03-15 10:10 | PCM.PROG ---
Date Seen by Provider: 03/15/22 Time Seen by Provider: 10:07 Subjective: based on 3 step test pt requires home oxyeng dx. copd Objective: Vitals: T=97.7 F, P=80, R=18, BP=97/51, SPO2=98 HEENT: []conjunctiva clear Neck: []supple Lungs: [] slight bilateral wheeze CVS: []rrr Abdomen: []nondistended Extremities: []gloria Neurological: []alert Skin: []pink Lab/Tests/Diagnostic Imaging: [] wbc 11.9 (1) Low oxygen saturation: Status: Acute Code(s): R79.81 - Abnormal blood-gas level SNOMED Code(s): 726643041 (2) Chronic obstructive pulmonary disease with acute exacerbation: Status: Acute Code(s): J44.1 - Chronic obstructive pulmonary disease with (acute) exacerbation SNOMED Code(s): 494005027 Plan: discharge home on oxygen, levaquin, proventil inhaler and medrol in addition to home meds
--- NOTE | 2022-03-15 10:49 | DI ---
EXAM: Chest two view, frontal and lateral views. HISTORY: Cough. Shortness of breath. Decreased oxygen saturation. COMPARISON: 03/12/2022, 09/26/2020, 08/18/2019. FINDINGS: The heart size is normal. Atherosclerotic calcifications are present. There is no pulmon rosmery vascular congestion. The lungs are clear. No pleural effusion or pneumothorax is seen. No acut e osseous abnormality identified. Since the prior study, there has been no significant interval [place]. IMPRESSION: No acute cardiopulmonary process.
== END 2022-03-15 12:51 | disposition home or self-care (01) | DRG 192 ==
LOC: ED 19:56 → MEDSURG A 23:03
PROVIDERS: ADMIT Family Medicine Addiction Medicine; ATTEND Emergency Medicine Emergency Medical Services
DX: Z51.81 Encounter for therapeutic drug level monitoring; R79.81 Abnormal blood-gas level; D72.829 Elevated white blood cell count, unspecified; F32.A Depression, unspecified; Z79.899 Other long term (current) drug therapy; R09.02 Hypoxemia; R53.1 Weakness; F17.219 Nicotine dependence, cigarettes, with unspecified nicotine-induced disorders; Z20.822 Contact with and (suspected) exposure to COVID-19; Z99.81 Dependence on supplemental oxygen; R06.02 Shortness of breath; I10 Essential (primary) hypertension; E83.42 Hypomagnesemia; J44.1 Chronic obstructive pulmonary disease with (acute) exacerbation; Z74.1 Need for assistance with personal care; R50.9 Fever, unspecified

== ENCOUNTER 2022-10-27 13:46 | Observation (INO) ==
[2022-10-27 14:33] LABS: BASOPHILS # (AUTO) 0.1 K/uL (0-0.2); EOSINOPHILS # (AUTO) 0.2 K/ul (0.0-0.7); EOSINOPHILS % (AUTO) 2.8 % (0.0-7.0); HEMOGLOBIN 9.9 g/dl (12.0-16.0); IMMATURE GRANULOCYTE % (AUTO) 0.3 % (0.0-5.0); LYMPHOCYTES # (AUTO) 2.3 K/uL (0.60-3.4); LYMPHOCYTES % (AUTO) 32.2 (10.0-50.0); MEAN CORPUSCULAR HEMOGLOBIN 31.5 pg (27.0-31.0); MEAN CORPUSCULAR HGB CONC 30.9 (31.8-35.4); MEAN CORPUSCULAR VOLUME 101.9 fl (81.0-99.0); MONOCYTES # (AUTO) 0.9 K/uL (0.4-2.0); MONOCYTES % (AUTO) 13.2 (0-10); NEUTROPHILS # (AUTO) 3.6 K/ul (2.0-6.9); NEUTROPHILS % (AUTO) 50.5 % (42.2-75.2); PLATELET COUNT 231 10^3/uL (140-440); RDW COEFFICIENT OF VARIATION 14.5 % (11.6-14.8); RED BLOOD COUNT 3.14 10^6/ul (4.20-5.40); WHITE BLOOD COUNT 7.07 K/ul (4.6-10.2)
[2022-10-27 14:44] LABS: ALANINE AMINOTRANSFERASE 16.8 U/L (0-35); ALBUMIN 3.82 g/dL (3.5-5.0); ALKALINE PHOSPHATASE 54.6 U/L (53-141); BILIRUBIN,TOTAL 0.46 mg/dL (0.2-1.3); CALCIUM 9.45 mg/dL (8.4-10.2); CARBON DIOXIDE 27.4 mmol/L (22-30.0); CHLORIDE 101.5 mmol/L (98-107); CREATININE 2.47 mg/dL (0.60-1.30); GLUCOSE 86.9 mg/dL (74-106); POTASSIUM 4.18 mmol/L (3.5-5.1); SODIUM 136.7 mmol/L (134.5-145); TOTAL PROTEIN 6.88 g/dL (6.3-8.2)
[2022-10-27 14:59] LABS: TROPONIN I < 0.012 ng/ml (0.0000-0.120)
[2022-10-27] MEDS ORDERED: SODIUM CHLORIDE 1,000 ML IV STA (15:08)
--- NOTE | 2022-10-27 15:57 | CT ---
EXAM: CT ABDOMEN PELVIS WITHOUT INTRAVENOUS CONTRAST 10/27/2022. SAGITTAL AND CORONAL REFORMATTED I MAGES OBTAINED HISTORY: Diarrhea COMPARISON: 04/30/2022 FINDINGS: Right basilar atelectasis. Pneumonia not excluded. Right basilar infiltrates are improved since the prior study. The liver shows no acute abnormality. The gallbladder is distended without surrounding inflammatory change. The adrenal glands and kidneys show no acute process. The high den sity probable proteinaceous cyst at the posterior right kidney is stable. The spleen and pancreas show no acute abnormality. There is no bowel obstruction. No evidence of ap pendicitis. No gross abnormality of the urinary bladder. The previously questioned intravesicular b ladder mass not definitively identified. CT urogram could be considered for further evaluation. Diverticulosis without diverticulitis. Markedly severe atherosclerotic vascular calcifications. Aortic stent is in place IMPRESSION: 1. Right basilar atelectasis and/or pneumonia. 2. Markedly severe atherosclerotic vascular calcification with aortic stent in place. 3. Limited examination due to lack of intravenous contrast 4. No urinary or bowel obstruction. 5. Diverticulosis without diverticulitis. 6. Stable high density at the posterior right kidney likely due to proteinaceous cyst. 7. The previously questioned intravesicular bladder mass is not identified on the current study. If clinically indicated CT urogram could be performed. All CT scans are performed using dose optimization techniques as appropriate to the performed exam an d include at least one of the following: Automated exposure control, adjustment of the mA and/or kV according t o size, and the use of iterative reconstruction technique.
--- NOTE | 2022-10-27 16:40 | ED.PDOC ---
General ED Provider: Dr. ROBERTO AKINS DO Chief Complaint: Diarrhea Stated Complaint: Patient is a 77 yo F here for weakness She did not want to walk and her daughter brought her to the ER Patient arrives afebrile and vitally stable by POV with onealluis eMarteansley reports it is getting hard to walk She feels weak No falls or injuires She has had diarrhea recently that improved spntaneously No recent surgeries She unfortunately continues to smoke and has BL fem-pop bypass, she follows with vascular surgery in [place] and was told she ahs claudication but patient stents as of june 2022 Patient stable Time Seen by Provider: 10/27/22 13:50 Information Source: Patient Primary Care Provider: EDMAR MEJIA MD Nursing and Triage Documentation Reviewed and Agree: Yes Review of Systems Review Of Systems Constitutional: Reports Weakness; Denies Chills or Fever Eyes: Denies Vision change or Drainage Ears, Nose, Mouth, Throat: Denies Ear pain or Nose pain Respiratory: Denies Cough or Shortness of Breath Cardiac: Denies Chest pain or Lightheadedness : Denies Burning or Dysuria Musculoskeletal: Reports Other (leg weakness); Denies Back pain or Joint pain Skin: Denies Bruising or Change in hair/nails Neurological: Denies Anxiety or Depressed Endocrine: Reports No symptoms Hematologic/Lymphatic: Reports No symptoms All Other Systems: Reviewed and Negative [facility] Medical History (Updated 10/27/22 @ 16:05 by ROBERTO AKINS DO) Acute exacerbation of chronic obstructive pulmonary disease J44.1 - Chronic obstructive pulmonary disease with (acute) exacerbation (ICD-10) Bladder mass N32.89 - Other specified disorders of bladder (ICD-10) C. difficile colitis A04.72 - Enterocolitis due to Clostridium difficile, not specified as recurrent (ICD-10) Depression F32.9 - Major depressive disorder, single episode, unspecified (ICD-10) Edema R60.9 - Edema, unspecified (ICD-10) Fatigue R53.83 - Other fatigue (ICD-10) Former tobacco use Z87.891 - Personal history of nicotine dependence (ICD-10) History of acute renal failure Z87.448 - Personal history of other diseases of urinary system (ICD-10) History of recent hospitalization Z92.89 - Personal history of other medical treatment (ICD-10) Hospital discharge follow-up Z09 - Encounter for follow-up examination after completed treatment for conditions other than malignant neoplasm (ICD-10) Hypokalemia E87.6 - Hypokalemia (ICD-10) Hypomagnesemia E83.42 - Hypomagnesemia (ICD-10) Medicare annual wellness visit, subsequent Z00.00 - Encounter for general adult medical examination without abnormal findings (ICD-10) On supplemental oxygen by nasal cannula Z78.9 - Other specified health status (ICD-10) Family History Mother CHF (congestive heart failure) SISTER Uterus cancer BROTHER Bladder cancer Hypertension 19 CHILD CHF (congestive heart failure) Other Asthma Social History (Updated 10/23/22 @ 09:25 by MANJINDER ARMAS, RN) Smoking and tobacco status: Current some day smoker Tobacco: How many years used: 50 Passive smoking exposure: No Quit status: not considering quitting Second hand smoke exposure: No Alcohol intake: never Counseling given: No Substance use type: does not use Counseling given: No Tesha/yarsani: JAINISM Special tesha needs: No Agree to transfusion: Yes Adopted: No Caregiver/support person: No Foster care: No Household members: family and other Other Household Members: granddaughter Housing: house Marital status: W / Lives independently: No Daycare: no daycare Number of children: 2 Number of grandchildren: 6 Highest education level completed: GED or equivalent Financial difficulty paying for basics: not very hard service: No assisted: No Current occupational status: employed Current occupation: [employer] Current occupational exposures/hazards: No Previous occupational history: [employer] for over 30 years Pets and animals: Yes (cats dog hermit crabs) Leisure activites: other History of recent travel: No Sexually active: No Do you think of yourself as: straight/heterosexual Current gender identity: female Seatbelt use: always Helmet use: No Drives intoxicated or rides with intoxicated grab driver: No Current diet type/program: regular Water heater temperature set < 120 degrees: Yes Working smoke detector in home: Yes Fire extinguisher in home: Yes Carbon monoxide detector in home: Yes Firearms in home: No Surgical History History of heart artery stent Z95.5 - Presence of coronary angioplasty implant and graft (ICD-10) History of vascular surgery (~01/2018) Z98.890 - Other specified postprocedural states (ICD-10) Status post hysterectomy Z90.710 - Acquired absence of both cervix and uterus (ICD-10) Female Reproductive History Menstrual Age of Menarche: 11 Hx Hysterectomy: Yes Hx Tubal Ligation: No Physical Exam Physical Exam Appearance: Reports Well-appearing, Well-nourished and Thin Ill-appearing: Not Applicable Pain Distress: Not Applicable Eyes: Reports RUSLAN and EOMI ENT: Reports Ears normal and Nose normal Neck: Nonsupple Respiratory: Reports Airway patent, Breath sounds clear and Wheezes; Denies Crackles or Rhonchi Cardiovascular: Reports Bradycardia; Denies No rub or No murmur GI/: Reports Soft and Nontender; Denies No masses Musculoskeletal: Reports Normal strength, ROM intact, No edema, No calf tenderness and Other (DP/PT pulses 2+/3 BL); Denies Limited ROM Skin: Reports Warm and Dry Neurological: Reports Sensation intact and Motor intact Psychiatric: Reports Affect appropriate and Mood appropriate Critical Care Note Critical Care Note Total Critical Care Time (mins): 0 Course Course 10/27/22 14:28 10/27/22 14:28 Orders, Labs, Meds: Lab Review 10/27/22 14:28 WBC 7.07 RBC 3.14 L Hgb 9.9 L Hct 32.0 L MCV 101.9 H MCH 31.5 H MCHC 30.9 L RDW Coeff of Beth 14.5 Plt Count 231 Immature Gran % (Auto) 0.3 Neut % (Auto) 50.5 Lymph % (Auto) 32.2 [place] % (Auto) 13.2 H Eos % (Auto) 2.8 Baso % (Auto) 1.0 Neut # (Auto) 3.6 Lymph # (Auto) 2.3 [place] # (Auto) 0.9 Eos # (Auto) 0.2 Baso # (Auto) 0.1 Immature Gran # (Auto) 0.0 Sodium 136.7 Potassium 4.18 Chloride 101.5 Carbon Dioxide 27.4 Anion Gap 11.98 BUN 20.0 H Creatinine 2.47 H Estimated GFR (MDRD) 19.00 BUN/Creatinine Ratio 8.09 Glucose 86.9 Calcium 9.45 Total Bilirubin 0.46 AST 25.0 ALT 16.8 Alkaline Phosphatase 54.6 Troponin I < 0.012 Total Protein 6.88 Albumin 3.82 Globulin 3.06 Albumin/Globulin Ratio 1.24 Orders Category Date Time Status OBSERVATION [PLACE PATIENT OBSERVATION] .TO MEDSURG ADMISSION 10/27/22 16:05 Active (MONITORED BED) EKG-(ED ONLY) Stat CARDIO 10/27/22 14:17 Completed NPO REMINDER: IMAGING [facility] 10/27/22 14:18 Active TELEMETRY MONITORING TELE CARE 10/27/22 16:05 Active CBC W/ AUTO DIFF Stat LAB 10/27/22 14:28 Completed COMPREHENSIVE METABOLIC PANEL Stat LAB 10/27/22 14:28 Completed COVID [SARS COV-2 RNA RAPID KAYLENE] Stat LAB 10/27/22 16:06 Received TROPONIN I Stat LAB 10/27/22 14:28 Completed Sodium Chloride 0.9% [Sodium Chloride] 1,000 ml Meds 10/27/22 15:[address] ABDOMEN/PELVIS WO CONTRAST Stat RADS 10/27/22 15:09 Completed Medications Discontinued Medications Generic Name Dose Route Start Last Admin Trade Name Freq PRN Reason Stop Dose Admin Sodium Chloride 1,000 mls @ 1,000 mls/hr 10/27/22 15:08 10/27/22 15:17 Sodium Chloride IV 10/27/22 16:07 1,000 mls/hr BOLUS STA Administration Vital Signs: Temp Pulse Resp BP Pulse Ox 10/27/22 13:59 98.3 F 58 L 15 134/55 L 94 L MDM: Patient is a 77 yo F here for weakness and discomfort walking Hx from patient chart review by me Patient afebrile and vitally stable Exam reassuring 3+ labs and 2 images reviewed by me Patient likely dehydrated with GUNNER from recent resolved diarrhea WDX: gunner, dehydration, tobacco use, renal cyst acute condition high complexity DDX: I considered obstruction, sepsis, ACS but these are less likely SDOH: Patient will improve with fluids and admission Patietn and i discussed plan, incidental findings and are aware of imaging results Consults to Hospitalist Discharge Plan Discharge Patient Disposition: PLACED OBSERVATION Discharge Problem: GUNNER (acute kidney injury), Acute dehydration, Kidney cysts, Weakness, Tobacco use, Acute hypokalemia Did you review [place] BUSINESS OFFICE MANAGER for ALL controlled substances?: No ED Provider: ROBERTO AKINS Condition: Good Physician Progress Note: []
[2022-10-27 16:49] LABS: SARS COV-2 RNA RAPID NAAT NEGATIVE (NEGATIVE)
[2022-10-27 18:34] VITALS: BMI 19.1
[2022-10-27] MEDS: ROCEPHIN 1 GM/50 ML D5W 1 GM/50 ML BAG IV SCH (18:44)
[2022-10-27] MEDS: LACTATED RINGERS 1,000 ML IV SCH (18:44)
[2022-10-27] MEDS ORDERED: VENTOLIN HFA IH PRN (20:22)
[2022-10-27] MEDS ORDERED: TOPROL XL PO SCH (20:30)
[2022-10-27] MEDS ORDERED: NON-FORMULARY MEDICATION (Ferrous Sulfate 325 mg (65 mg iron) tablet) PO SCH (20:30)
[2022-10-27] MEDS: ZITHROMAX 500 MG in SODIUM CHLORIDE 250 ML IV SCH (21:21)
[2022-10-27 21:28] LABS: BILIRUBIN,URINE Negative (NEGATIVE); CLARITY,URINE Clear (CLEAR); COLOR,URINE Yellow (YELLOW); GLUCOSE, URINE (UA) Trace (NEGATIVE); KETONES,URINE Negative (NEGATIVE); LEUKOCYTE ESTERASE ,URINE Negative (NEGATIVE); NITRITE,URINE Negative (NEGATIVE); PROTEIN,URINE 1+ (NEGATIVE); URINE, BLOOD 2+ (NEGATIVE); UROBILINOGEN,URINE 0.2 (0.2)
[2022-10-27] MEDS: SYMBICORT 160-4.5 MCG INHALER IH SCH (21:29)
[2022-10-27] MEDS: LIPITOR PO SCH (21:32)
[2022-10-27] MEDS: CYMBALTA PO SCH (21:32)
[2022-10-27 21:43] LABS: BACTERIA,URINE TRACE (NOT PRESENT); MUCUS,URINE TRACE (NOT PRESENT)
[2022-10-28] MEDS: LACTATED RINGERS 1,000 ML IV SCH ×3 (04:41→22:46)
[2022-10-28 05:29] LABS: BASOPHILS # (AUTO) 0.1 K/uL (0-0.2); BASOPHILS % (AUTO) 0.9 % (0.0-3.0); EOSINOPHILS # (AUTO) 0.2 K/ul (0.0-0.7); EOSINOPHILS % (AUTO) 2.8 % (0.0-7.0); HEMATOCRIT 28.7 % (37.0-47.0); IMMATURE GRANULOCYTE % (AUTO) 0.5 % (0.0-5.0); LYMPHOCYTES # (AUTO) 1.9 K/uL (0.60-3.4); LYMPHOCYTES % (AUTO) 28.4 (10.0-50.0); MEAN CORPUSCULAR HGB CONC 31.4 (31.8-35.4); MEAN CORPUSCULAR VOLUME 102.1 fl (81.0-99.0); MONOCYTES # (AUTO) 0.8 K/uL (0.4-2.0); MONOCYTES % (AUTO) 11.9 (0-10); NEUTROPHILS # (AUTO) 3.6 K/ul (2.0-6.9); NEUTROPHILS % (AUTO) 55.5 % (42.2-75.2); PLATELET COUNT 226 10^3/uL (140-440); RDW COEFFICIENT OF VARIATION 14.3 % (11.6-14.8); RED BLOOD COUNT 2.81 10^6/ul (4.20-5.40); WHITE BLOOD COUNT 6.54 K/ul (4.6-10.2)
[2022-10-28 05:44] LABS: ALBUMIN 2.89 g/dL (3.5-5.0); ASPARTATE AMINO TRANSFERASE 20.5 U/L (14-36); BILIRUBIN,TOTAL < 0.10 mg/dL (0.2-1.3); BLOOD UREA NITROGEN 19.6 mg/dL (7-17); CALCIUM 8.47 mg/dL (8.4-10.2); CARBON DIOXIDE 25.5 mmol/L (22-30.0); CHLORIDE 106.4 mmol/L (98-107); GLUCOSE 88.8 mg/dL (74-106); POTASSIUM 3.99 mmol/L (3.5-5.1); SODIUM 136.2 mmol/L (134.5-145); TOTAL PROTEIN 5.48 g/dL (6.3-8.2)
[2022-10-28] MEDS: ROCEPHIN 1 GM/50 ML D5W 1 GM/50 ML BAG IV SCH (09:07)
[2022-10-28] MEDS: FERROUS SULFATE PO SCH (09:07)
[2022-10-28] MEDS: TOPROL XL PO SCH (09:07)
[2022-10-28] MEDS: CYMBALTA PO SCH (09:07)
[2022-10-28] MEDS: SYMBICORT 160-4.5 MCG INHALER IH SCH ×2 (09:20→20:47)
--- NOTE | 2022-10-28 10:26 | PCM ---
Date of Service Date Seen by Provider: 10/28/22 Time Seen by Provider: 08:30 Admit Day/Time Admission Date: 10/27/22 Admission Time: 16:05 Reason for Admission Chief Complaint: ACUTE KIDNEY INJURY Hospital Provider Hospital Provider: RAYMUNDO LY PA-C, [facility] [place] Primary Care Physician Primary Care Physician: EDMAR MEJIA MD History of Present Illness History of Present Illness: Patient is a 77 year old female with pmhx of COPD, neuropathy, hx of bladder mass, hx of c diff, hypertension who presents to the ER with weakness and diarrhea. Per patient she started having diarrhea, multiple stools on Thursday. No blood in stools. Had some abdominal cramping which improved with BMs. She continued to have multiple stools daily. It has since improved. In the ER she was found to have elevated creatinine and BUN indicating dehydration. CT abd/pelvis negative for acute findings other than right lower pna vs atelectasis. She denies sob/cough worse than usual. No fever. She was given fluids overnight and admitted to [facility]. On my evaluation this morning patient states she's feeling "fine." Her Cr has improved. She denies any diarrhea since admission. No recent antibiotics. WBC count normal. No fever. No abd pain. Patient still works 6d/week. Case Discussed With Case Discussed With: Patient's case was discussed with the ER Physicians, Dr. Ravi. [facility] Medical History Acute exacerbation of chronic obstructive pulmonary disease J44.1 - Chronic obstructive pulmonary disease with (acute) exacerbation (ICD-10) Bladder mass N32.89 - Other specified disorders of bladder (ICD-10) C. difficile colitis A04.72 - Enterocolitis due to Clostridium difficile, not specified as recurrent (ICD-10) Depression F32.9 - Major depressive disorder, single episode, unspecified (ICD-10) Edema R60.9 - Edema, unspecified (ICD-10) Fatigue R53.83 - Other fatigue (ICD-10) Former tobacco use Z87.891 - Personal history of nicotine dependence (ICD-10) History of acute renal failure Z87.448 - Personal history of other diseases of urinary system (ICD-10) History of recent hospitalization Z92.89 - Personal history of other medical treatment (ICD-10) Hospital discharge follow-up Z09 - Encounter for follow-up examination after completed treatment for conditions other than malignant neoplasm (ICD-10) Hypokalemia E87.6 - Hypokalemia (ICD-10) Hypomagnesemia E83.42 - Hypomagnesemia (ICD-10) Medicare annual wellness visit, subsequent Z00.00 - Encounter for general adult medical examination without abnormal findings (ICD-10) On supplemental oxygen by nasal cannula Z78.9 - Other specified health status (ICD-10) Surgical History History of heart artery stent Z95.5 - Presence of coronary angioplasty implant and graft (ICD-10) History of vascular surgery (~01/2018) Z98.890 - Other specified postprocedural states (ICD-10) Status post hysterectomy Z90.710 - Acquired absence of both cervix and uterus (ICD-10) Family History Mother CHF (congestive heart failure) SISTER Uterus cancer BROTHER Bladder cancer Hypertension 19 CHILD CHF (congestive heart failure) Other Asthma Social History Smoking and tobacco status: Current every day smoker Tobacco: How many years used: 50 Passive smoking exposure: No Quit status: not considering quitting Second hand smoke exposure: No Alcohol intake: never Counseling given: No Substance use type: does not use Counseling given: No Tesha/rastafarian: [employer] Special tesha needs: No Agree to transfusion: Yes Adopted: No Caregiver/support person: No Foster care: No Household members: family and other Other Household Members: granddaughter Housing: house Marital status: W / Lives independently: No Daycare: no daycare Number of children: 2 Number of grandchildren: 6 Highest education level completed: GED or equivalent Financial difficulty paying for basics: not very hard service: No correction: No Current occupational status: employed Current occupation: [employer] Current occupational exposures/hazards: No Previous occupational history: [employer] for over 30 years Pets and animals: Yes (cats dog hermit crabs) Leisure activites: other History of recent travel: No Sexually active: No Do you think of yourself as: straight/heterosexual Current gender identity: female Seatbelt use: always Helmet use: No Drives intoxicated or rides with intoxicated grain combine 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: No Current diet type/program: regular Water heater temperature set < 120 degrees: Yes Working smoke detector in home: Yes Fire extinguisher in home: Yes Carbon monoxide detector in home: Yes Firearms in home: No Allergies Allergies Allergy/AdvReac Type Severity Reaction Status Date / Time sulfamethoxazole Allergy Mild See Verified 10/27/22 14:04 [From Bactrim] comment bubble trimethoprim [From Bactrim] Allergy Mild See Verified 10/27/22 14:04 comment bubble amlodipine [From Norvasc] AdvReac Intermediate peripheral Verified 10/27/22 14:04 edema Current Medications Home Medications camphor 3.1 %-methyl salicylate 10 %-menthol 6 % topical patch (Salonpas) 1 patch topical QAM 01/07/19 [History Confirmed 10/27/22 Last Taken 09/26/20] albuterol sulfate 2.5 mg/3 mL (0.083 %) solution for nebulization 2.5 mg (3 mL) NEB QID #360 mL 03/31/22 [Rx Confirmed 10/27/22 Last Taken Unknown] albuterol sulfate 90 mcg/actuation aerosol inhaler (Ventolin HFA) 2 puff inhalation Q4-6H PRN shortness of breath or wheezing #18 grams 03/31/22 [Rx C onfirmed 10/27/22 Last Taken Unknown] ferrous sulfate 325 mg (65 mg iron) tablet 325 mg PO QDAY 05/08/22 [History Confirmed 10/27/22 Last Taken Unknown] metoprolol succinate 50 mg tablet,extended release 24 hr 25 mg PO QDAY 05/08/22 [History Confirmed 10/27/22 Last Taken Unknown] lisinopril 10 mg tablet 10 mg PO QDAY #30 tabs 05/15/22 [Rx Confirmed 10/27/22 Last Taken Unknown] spironolactone 25 mg tablet 25 mg PO QDAY 05/15/22 [History Confirmed 10/27/22 Last Taken Unknown] gabapentin 300 mg capsule See Rx Instructions .Route .COMPLEX #150 caps 07/04/22 [Rx Confirmed 10/27/22 Last Taken Unknown] budesonide-formoterol HFA 160 mcg-4.5 mcg/actuation aerosol inhaler (Symbicort) 2 puff inhalation BID #10.2 grams 10/23/22 [Rx Confirmed 10/27/22 Last Taken Unknown] bumetanide 1 mg tablet 1 mg PO QDAY PRN >3# weight gain in 72 hours #30 tabs 10/23/22 [Rx Confirmed 10/27/22 Last Taken Unknown] duloxetine 30 mg capsule,delayed release 30 mg PO QDAY #14 caps 10/23/22 [Rx Confirmed 10/27/22 Last Taken Unknown] duloxetine 60 mg capsule,delayed release 60 mg PO QDAY #90 caps 10/23/22 [Rx Confirmed 10/27/22 Last Taken Unknown] atorvastatin 10 mg tablet 10 mg PO BEDTIME 10/27/22 [History Confirmed 10/27/22 Last Taken Unknown] Home Albuterol Sulfate (Albuterol Sulfate 8 Gm Inhaler) 2 puff IH Q4-6H PRN PRN Reason: sob Atorvastatin Calcium (Atorvastatin Calcium 10 Mg Tablet) 10 mg PO BEDTIME [facility] Last Admin: 10/27/22 21:32 Dose: 10 mg Budesonide/Formoterol Fumarate (Budesonide/Formoterol Fumarate 160/4.5 Mcg Inhaler) 2 puff IH BID [facility] Last Admin: 10/28/22 09:20 Dose: 2 puff Duloxetine HCl (Duloxetine Hcl 30 Mg Capsule.) 30 mg PO DAILY [facility] Last Admin: 10/28/22 09:07 Dose: 30 mg Enoxaparin Sodium (Enoxaparin Sodium 30 Mg/0.3 Ml Syr) 30 mg SUBCUT DAILY [facility] Last Admin: 10/28/22 10:57 Dose: 30 mg Ferrous Sulfate (Ferrous Sulfate 324 Mg Tablet.) 324 mg PO DAILY [facility] Last Admin: 10/28/22 09:07 Dose: 324 mg Lactated Ringer's (Lactated Ringers) 1,000 mls @ 125 mls/hr IV .Q8H [facility] Last Admin: 10/28/22 04:41 Dose: 125 mls/hr Metoprolol Succinate (Metoprolol Succinate 25 Mg Tab.Er.24h) 25 mg PO DAILY [facility] Last Admin: 10/28/22 09:07 Dose: 25 mg Discontinued Medications Sodium Chloride (Sodium Chloride) 1,000 mls @ 1,000 mls/hr IV BOLUS STA Stop: 10/27/22 16:07 Last Admin: 10/27/22 15:17 Dose: 1,000 mls/hr CEFTRIAXONE/D5W 1 GM PREMIX (Rocephin 1 Gm/50 Ml D5w) 1 gm in 50 mls @ 100 mls/hr IV DAILY [facility] Stop: 10/30/22 18:04 Last Admin: 10/28/22 09:07 Dose: 100 mls/hr Azithromycin 500 mg/ Sodium (Chloride) 250 mls @ 250 mls/hr IV DAILY [facility] Stop: 10/30/22 20:59 Last Admin: 10/28/22 10:52 Dose: 250 mls/hr Metoprolol Succinate (Metoprolol Succinate 50 Mg Tab.Er.24h) 25 mg PO DAILY [facility] Last Admin: 10/27/22 21:33 Dose: Not Given Non-Formulary Medication (Ferrous Sulfate) 325 mg PO QDAY [facility] Review of Systems Constitutional: Reports Fatigue and Weakness; Denies Fever Head: Reports Normocephalic and Atraumatic Eyes: Denies Vision Changes Throat: Denies Sore Throat or Difficulty Swallowing Cardiovascular: Denies Chest pain or Chest Pressure Respiratory: Reports Cough (+chronic, unchanged ); Denies Shortness of air Gastrointestinal: Reports Diarrhea (improving) and Abdominal pain (resolved ); Denies Nausea or Vomiting Genitourinary: Denies Dysuria or Frequency Neurological: Reports Numbness (+chronic, lower ext. ) and Weakness; Denies Headache, Dizziness or Syncope Physical examination Most Recent Vital Signs: Most Recent Vital Signs Temperature 98.3 F 10/28/22 09:51 Temperature Source Oral 10/28/22 09:51 Temperature Source Oral 10/27/22 13:59 Pulse Rate 69 10/28/22 09:51 Respiratory Rate 16 10/28/22 09:51 Blood Pressure 154/61 H 10/28/22 09:51 Blood Pressure Mean 92 10/28/22 09:51 Blood Pressure Left Arm 178/61 10/27/22 17:55 Blood Pressure Location Left Arm 10/28/22 09:51 Blood Pressure Position Sitting 10/28/22 09:51 O2 Sat by Pulse Oximetry 94 L 10/28/22 09:51 Oxygen Delivery Method Room Air 10/28/22 09:51 Height 4 ft 11 in 10/27/22 17:55 Weight 94 lb 7 oz 10/27/22 17:55 Telemetry Type Remote Telemetry 10/28/22 07:00 Telemetry Monitoring Continues 10/28/22 07:00 Telemetry Heart Rate 78 10/28/22 07:00 Telemetry SPO2 95 03/28/22 07:00 EKG NJ Interval 0.12 10/28/22 07:00 EKG QRS Interval 0.09 10/28/22 07:00 EKG QT Interval 0.38 10/28/22 01:00 Telemetry Strip Reading SR 10/28/22 07:00 Appearance: Positive Well-appearing, Well-nourished, No Apparent Distress and Alert and Oriented x3 Skin: Positive [place] and Warm; Negative Rashes or Good Turgor HEENT: Positive Normocephalic and Atraumatic; Negative Oral Mucous Moist Neck: Positive Supple and Midline Trachea Chest/Lungs: Positive Clear to Auscultation Bilaterally; Negative Rales, Rhonci or Wheezes Heart: Positive RRR GI/: Positive Soft, Nontender, Bowel Sounds Normal and No Distention Neurological: Positive Alert, Oriented and Muscle Strength 5/5 in Upper and Lower Extremities Bilaterally Psychiatric: Positive Oriented x4, Appropriate Mood and Appropriate Affect Labs This Visit Labs This Visit: Labs This Visit 10/27/22 10/27/22 10/27/22 14:28 16:06 20:15 WBC 7.07 RBC 3.14 L Hgb 9.9 L Hct 32.0 L MCV 101.9 H MCH 31.5 H MCHC 30.9 L RDW Coeff of Beth 14.5 Plt Count 231 Immature Gran % (Auto) 0.3 Neut % (Auto) 50.5 Lymph % (Auto) 32.2 [place] % (Auto) 13.2 H Eos % (Auto) 2.8 Baso % (Auto) 1.0 Neut # (Auto) 3.6 Lymph # (Auto) 2.3 [place] # (Auto) 0.9 Eos # (Auto) 0.2 Baso # (Auto) 0.1 Immature Gran # (Auto) 0.0 Sodium 136.7 Potassium 4.18 Chloride 101.5 Carbon Dioxide 27.4 Anion Gap 11.98 BUN 20.0 H Creatinine 2.47 H Estimated GFR (MDRD) 19.00 BUN/Creatinine Ratio 8.09 Glucose 86.9 Calcium 9.45 Total Bilirubin 0.46 AST 25.0 ALT 16.8 Alkaline Phosphatase 54.6 Troponin I < 0.012 Total Protein 6.88 Albumin 3.82 Globulin 3.06 Albumin/Globulin Ratio 1.24 Procalcitonin Urine Color Yellow Urine Clarity Clear Urine pH 6.0 Ur Specific [place] 1.015 Urine Protein 1+ H Urine Glucose (UA) Trace H Urine Ketones Negative Urine Blood 2+ H Urine Nitrite Negative Urine Bilirubin Negative Urine Urobilinogen 0.2 Ur Leukocyte Esterase Negative Urine Microscopic WBC 5-10 Ur Squamous Epith Cells 2-5 Urine Bacteria Trace Hyaline Casts 2-5 Urine Mucus Trace SARS CoV-2 RNA Rapid KAYLENE Negative 10/28/22 10/28/22 04:50 05:03 WBC 6.54 RBC 2.81 L Hgb 9.0 L Hct 28.7 L MCV 102.1 H MCH 32.0 H MCHC 31.4 L RDW Coeff of Beth 14.3 Plt Count 226 Immature Gran % (Auto) 0.5 Neut % (Auto) 55.5 Lymph % (Auto) 28.4 [place] % (Auto) 11.9 H Eos % (Auto) 2.8 Baso % (Auto) 0.9 Neut # (Auto) 3.6 Lymph # (Auto) 1.9 [place] # (Auto) 0.8 Eos # (Auto) 0.2 Baso # (Auto) 0.1 Immature Gran # (Auto) 0.0 Sodium 136.2 Potassium 3.99 Chloride 106.4 Carbon Dioxide 25.5 Anion Gap 8.29 BUN 19.6 H Creatinine 1.90 H D Estimated GFR (MDRD) 26.00 BUN/Creatinine Ratio 10.31 Glucose 88.8 Calcium 8.47 Total Bilirubin < 0.10 L AST 20.5 ALT 14.0 Alkaline Phosphatase 47.0 L Troponin I Total Protein 5.48 L Albumin 2.89 L Globulin 2.59 Albumin/Globulin Ratio 1.11 Procalcitonin < 0.05 Urine Color Urine Clarity Urine pH Ur Specific [place] Urine Protein Urine Glucose (UA) Urine Ketones Urine Blood Urine Nitrite Urine Bilirubin Urine Urobilinogen Ur Leukocyte Esterase Urine Microscopic WBC Ur Squamous Epith Cells Urine Bacteria Hyaline Casts Urine Mucus SARS CoV-2 RNA Rapid KAYLENE Imaging Imaging: EXAM: CT ABDOMEN PELVIS WITHOUT INTRAVENOUS CONTRAST 10/27/2022. SAGITTAL AND CORONAL REFORMATTED IMAGES OBTAINED HISTORY: Diarrhea COMPARISON: 04/30/2022 FINDINGS: Right basilar atelectasis. Pneumonia not excluded. Right basilar infiltrates are improved since the prior study. The liver shows no acute abnormality. The gallbladder is distended without surrounding inflammatory change. The adrenal glands and kidneys show no acute process. The high density probable proteinaceous cyst at the posterior right kidney is stable. The spleen and pancreas show no acute abnormality. There is no bowel obstruction. No evidence of appendicitis. No gross abnormality of the urinary bladder. The previously questioned intravesicular bladder mass not definitively identified. CT urogram could be considered for further evaluation. Diverticulosis without diverticulitis. Markedly severe atherosclerotic vascular calcifications. Aortic stent is in place IMPRESSION: 1. Right basilar atelectasis and/or pneumonia. 2. Markedly severe atherosclerotic vascular calcification with aortic stent in place. 3. Limited examination due to lack of intravenous contrast 4. No urinary or bowel obstruction. 5. Diverticulosis without diverticulitis. 6. Stable high density at the posterior right kidney likely due to proteinaceous cyst. 7. The previously questioned intravesicular bladder mass is not identified on the current study. If clinically indicated CT urogram could be performed. Review Statement Review Statement: I have independently reviewed and interpreted the labs/EKGs/imaging that were ordered by the ER provider. I have reviewed all outside records that are available currently in our EMR including imaging/notes/labs from previous visits. Plan Plan: 1. GUNNER, stage I in setting of dehydration and diarrhea - Improving, but not at baseline. Continue LR at 125 ml/hr. Monitor for fluid overload. Pt has diuretics listed on med list but states she doesn't think she takes them anymore, will confirm with family member. 2. Dehydration in setting of diarrhea - Plan as above. 3. Diarrhea - Hx of c diff. Pt's diarrhea has improved and wbc normal, no fever. Unlikely c diff. Could be viral in nature. CT negative for acute colitis. 4. Pna vs atelectasis on CT - Pt has no signs or symptoms of pna, in light of hx of c diff will discontinue antibotics. Procal negative. 5. Hyperlipidemia - Continue home meds 6. Hypertension - Continue home meds, hold lisinopril due to gunner. Holding diuretics as well and will confirm if she's even still on them. 7. Iron deficiency - Continue iron tabs. 8. Peripheral neuropathy - Cont cymbalta and gabapentin 9. COPD, not in exacerbation - Continue home inhalers DVT Prophylaxis: lovenox Time Spent: Greater than 80 minutes spent with patient, 50% of the time spent with this patient was devoted to counseling and coordination of care. [facility] minutes spent discussing advance care planning. FULL CODE Smoking Cessation: 3 minutes spent discussing smoking cessation. Admit to: Obs Discussed Plan of Care with Dr. Angel Strong. Medications Medication Orders: Medications Ordered Category Date Time Status Albuterol Sulfate [Ventolin Hfa] Meds 10/27/22 20:22 Active 2 puff IH Q4-6H PRN Atorvastatin Calcium [Lipitor] Meds 10/27/22 21:00 Active 10 mg PO BEDTIME Budesonide/Formoterol Fumarate [Symbicort 160-4.5 Mcg Meds 10/27/22 21:00 Active Inhaler] 2 puff IH BID Duloxetine HCl [Cymbalta] Meds 10/27/22 20:30 Active 30 mg PO DAILY Ferrous Sulfate Meds 10/28/22 09:00 Active 324 mg PO DAILY Metoprolol Succinate [Toprol Xl] Meds 10/28/22 09:00 Active 25 mg PO DAILY Ringers Lactated Solution [Lactated Ringers] 1,000 ml Meds 10/27/22 18:00 Active IV 125 mls/hr
[2022-10-28] MEDS: ZITHROMAX 500 MG in SODIUM CHLORIDE 250 ML IV SCH (10:52)
[2022-10-28] MEDS: LOVENOX SUBCUT SCH (10:57)
[2022-10-28] MEDS: LIPITOR PO SCH (20:46)
[2022-10-29 02:09] VITALS: RESP 16
[2022-10-29] MEDS: LACTATED RINGERS 1,000 ML IV SCH ×2 (03:08→06:09)
[2022-10-29 05:16] LABS: BASOPHILS # (AUTO) 0.1 K/uL (0-0.2); BASOPHILS % (AUTO) 1.2 % (0.0-3.0); EOSINOPHILS # (AUTO) 0.2 K/ul (0.0-0.7); EOSINOPHILS % (AUTO) 3.7 % (0.0-7.0); HEMATOCRIT 29.3 % (37.0-47.0); HEMOGLOBIN 9.2 g/dl (12.0-16.0); IMMATURE GRANULOCYTE % (AUTO) 0.2 % (0.0-5.0); LYMPHOCYTES % (AUTO) 36.4 (10.0-50.0); MEAN CORPUSCULAR HEMOGLOBIN 31.8 pg (27.0-31.0); MEAN CORPUSCULAR HGB CONC 31.4 (31.8-35.4); MEAN CORPUSCULAR VOLUME 101.4 fl (81.0-99.0); MONOCYTES # (AUTO) 0.7 K/uL (0.4-2.0); MONOCYTES % (AUTO) 12.8 (0-10); NEUTROPHILS # (AUTO) 2.6 K/ul (2.0-6.9); NEUTROPHILS % (AUTO) 45.7 % (42.2-75.2); PLATELET COUNT 232 10^3/uL (140-440); RDW COEFFICIENT OF VARIATION 14.2 % (11.6-14.8); RED BLOOD COUNT 2.89 10^6/ul (4.20-5.40); WHITE BLOOD COUNT 5.61 K/ul (4.6-10.2)
[2022-10-29 05:27] LABS: ALANINE AMINOTRANSFERASE 13.9 U/L (0-35); ALBUMIN 2.81 g/dL (3.5-5.0); ALKALINE PHOSPHATASE 43.8 U/L (53-141); ASPARTATE AMINO TRANSFERASE 20.8 U/L (14-36); BILIRUBIN,TOTAL 0.25 mg/dL (0.2-1.3); BLOOD UREA NITROGEN 12.9 mg/dL (7-17); CALCIUM 8.84 mg/dL (8.4-10.2); CARBON DIOXIDE 29.4 mmol/L (22-30.0); CHLORIDE 108.3 mmol/L (98-107); CREATININE 1.26 mg/dL (0.60-1.30); GLUCOSE 84.9 mg/dL (74-106); POTASSIUM 3.89 mmol/L (3.5-5.1); TOTAL PROTEIN 5.36 g/dL (6.3-8.2)
[2022-10-29 05:38] VITALS: BP 150/56; PULSE 66; TEMP 97.4
[2022-10-29] MEDS: TOPROL XL PO SCH (08:30)
[2022-10-29] MEDS: SYMBICORT 160-4.5 MCG INHALER IH SCH (08:30)
[2022-10-29] MEDS: FERROUS SULFATE PO SCH (08:31)
[2022-10-29] MEDS: LOVENOX SUBCUT SCH (08:31)
[2022-10-29] MEDS: CYMBALTA PO SCH (08:31)
--- NOTE | 2022-10-29 08:58 | DCSUM ---
Admission Date Admission Date: 10/27/22 Discharge Date Discharge Date: 10/29/22 Admission Diagnosis Admission Diagnosis: 1. GUNNER 2. DEHYDRATION 3. DIARRHEA Discharge Diagnosis Discharge Diagnosis: 1. GUNNER, stage I in setting of dehydration and diarrhea, resolved 2. Dehydration in setting of diarrhea, resolved 3. Diarrhea, resolved 4. Pna vs atelectasis on CT - Pt has no signs or symptoms of pna 5. Hyperlipidemia, chronic stable 6. Hypertension, chronic stable 7. Iron deficiency, chronic stable 8. Peripheral neuropathy , chronic 9. COPD, not in exacerbation, chronic stable Hospital Provider Hospital Provider: RAYMUNDO LY PA-C, [facility] Primary Care Physician Primary Care Physician: EDMAR MEJAI MD Summary of History and Physical Summary of History and Physical: Patient is a 77 year old female with pmhx of COPD, neuropathy, hx of bladder mass, hx of c diff, hypertension who presents to the ER with weakness and diarrhea. Per patient she started having diarrhea, multiple stools on Thursday. No blood in stools. Had some abdominal cramping which improved with BMs. She continued to have multiple stools daily. It has since improved. In the ER she was found to have elevated creatinine and BUN indicating dehydration. CT abd/pelvis negative for acute findings other than right lower pna vs atelecta sis. She denies sob/cough worse than usual. No fever. She was given fluids overnight and admitted to [facility]. On my evaluation this morning patient states she's feeling "fine." Her Cr has improved. She denies any diarrhea since admission. No recent antibiotics. WBC count normal. No fever. No abd pain. Patient still works 6d/week. Hospital Course Subjective: Patient was treated with fluids and her creatinine and BUN improved greatly. She is near her baseline at time of discharge. She has had no more diarrhea, states she had a formed BM this morning. No abd pain. CT negative for acute abdominal findings. CT showed possible pna vs atelectasis. Patient's infection markers normal, no fever, no symptoms of pna. Therefore antibiotics were discontinued in light of hx of c diff. Patient's spironolactone and lisinopril was held during stay due to gunner/dehydration, may resume tomorrow. She has bumex ordered prn but she states she never takes this. Recommend repeat bmp at pcp follow up. Pt agrees to plan of care. Appearance: Pleasant, No Apparent Distress, Alert, Well-appearing and Well- nourished HEENT: MMM and Supple CVS: No Murmur Abdomen: Soft, Non-Tender and No Distention Respiratory: No Dyspnea Extremities: No Edema Vital Signs: Most Recent Vital Signs Temperature 97.4 F L 10/29/22 05:36 Temperature Source Oral 10/29/22 05:36 Temperature Source Oral 10/27/22 13:59 Pulse Rate 66 10/29/22 05:36 Respiratory Rate 16 10/29/22 05:36 Blood Pressure 150/56 H 10/29/22 05:36 Blood Pressure Mean 87 10/29/22 05:36 Blood Pressure Left Arm 178/61 10/27/22 17:55 Blood Pressure Location Left Arm 10/29/22 05:36 Blood Pressure Position Supine 10/29/22 05:36 O2 Sat by Pulse Oximetry 94 L 10/29/22 05:36 Oxygen Delivery Method Room Air 10/29/22 07:40 Height 4 ft 11 in 10/28/22 10:45 Weight 94 lb 7 oz 10/28/22 10:45 Telemetry Type Remote Telemetry 10/29/22 07:00 Telemetry Monitoring Continues 10/29/22 07:00 Irregular Telemetry Rate (Approximate) 70-80 BPM 10/29/22 07:00 Telemetry Heart Rate 76 10/29/22 07:00 Telemetry SPO2 95 03/28/22 07:00 EKG SD Interval 0.13 10/29/22 07:00 EKG QRS Interval 0.06 10/29/22 07:00 EKG QT Interval 0.36 10/29/22 01:00 Telemetry Strip Reading nsr 10/29/22 07:00 Imaging: EXAM: CT ABDOMEN PELVIS WITHOUT INTRAVENOUS CONTRAST 10/27/2022. SAGITTAL AND CORONAL REFORMATTED IMAGES OBTAINED HISTORY: Diarrhea COMPARISON: 04/30/2022 FINDINGS: Right basilar atelectasis. Pneumonia not excluded. Right basilar infiltrates are improved since the prior study. The liver shows no acute abnormality. The gallbladder is distended without surrounding inflammatory change. The adrenal glands and kidneys show no acute process. The high density probable proteinaceous cyst at the posterior right kidney is stable. The spleen and pancreas show no acute abnormality. There is no bowel obstruction. No evidence of appendicitis. No gross abnormality of the urinary bladder. The previously questioned intravesicular bladder mass not definitively identified. CT urogram could be considered for further evaluation. Diverticulosis without diverticulitis. Markedly severe atherosclerotic vascular calcifications. Aortic stent is in place IMPRESSION: 1. Right basilar atelectasis and/or pneumonia. 2. Markedly severe atherosclerotic vascular calcification with aortic stent in place. 3. Limited examination due to lack of intravenous contrast 4. No urinary or bowel obstruction. 5. Diverticulosis without diverticulitis. 6. Stable high density at the posterior right kidney likely due to proteinaceous cyst. 7. The previously questioned intravesicular bladder mass is not identified on the current study. If clinically indicated CT urogram could be performed. Lab Results Last 24 Hours: 10/29/22 10/27/22 04:55 20:15 WBC 5.61 RBC 2.89 L Hgb 9.2 L Hct 29.3 L MCV 101.4 H MCH 31.8 H MCHC 31.4 L RDW Coeff of Beth 14.2 Plt Count 232 Immature Gran % (Auto) 0.2 Neut % (Auto) 45.7 Lymph % (Auto) 36.4 [place] % (Auto) 12.8 H Eos % (Auto) 3.7 Baso % (Auto) 1.2 Neut # (Auto) 2.6 Lymph # (Auto) 2.0 [place] # (Auto) 0.7 Eos # (Auto) 0.2 Baso # (Auto) 0.1 Immature Gran # (Auto) 0.0 Sodium 139.0 Potassium 3.89 Chloride 108.3 H Carbon Dioxide 29.4 Anion Gap 5.19 BUN 12.9 Creatinine 1.26 D Estimated GFR (MDRD) 41.00 BUN/Creatinine Ratio 10.23 Glucose 84.9 Calcium 8.84 Total Bilirubin 0.25 AST 20.8 ALT 13.9 Alkaline Phosphatase 43.8 L Total Protein 5.36 L Albumin 2.81 L Globulin 2.55 Albumin/Globulin Ratio 1.10 Ur Random Sodium 55 Urine Creatinine 102.0 Discharge Instructions Discharge Planning: Discharge Planning > [address] Angel Strong. Discharge Medications: Medications at Discharge (Home Meds & RX) camphor 3.1 %-methyl salicylate 10 %-menthol 6 % topical patch (Salonpas) 1 patch topical QAM 01/07/19 albuterol sulfate 2.5 mg/3 mL (0.083 %) solution for nebulization 2.5 mg (3 mL) NEB QID #360 mL 03/31/22 albuterol sulfate 90 mcg/actuation aerosol inhaler (Ventolin HFA) 2 puff inhalation Q4-6H PRN shortness of breath or wheezing #18 grams 03/31/22 ferrous sulfate 325 mg (65 mg iron) tablet 325 mg PO QDAY 05/08/22 metoprolol succinate 50 mg tablet,extended release 24 hr 25 mg PO QDAY 05/08/22 lisinopril 10 mg tablet 10 mg PO QDAY #30 tabs 05/15/22 spironolactone 25 mg tablet 25 mg PO QDAY 05/15/22 gabapentin 300 mg capsule See Rx Instructions .Route .COMPLEX #150 caps 07/04/22 budesonide-formoterol HFA 160 mcg-4.5 mcg/actuation aerosol inhaler (Symbicort) 2 puff inhalation BID #10.2 grams 10/23/22 bumetanide 1 mg tablet 1 mg PO QDAY PRN >3# weight gain in 72 hours #30 tabs 10/23/22 duloxetine 30 mg capsule,delayed release 30 mg PO QDAY #14 caps 10/23/22 atorvastatin 10 mg tablet 10 mg PO BEDTIME 10/27/22 Discharge Plan Discharge Discharge Orders: Discharge Patient (ONCE); Ordered 10/29/22 Ordered By: RAYMUNDO LY Activity Restrictions/Additional Instructions: DISCHARGE TO HOME DIAGNOSIS: GUNNER, DEHYDRATION ACTIVITY: TOLERATED DIET: HEART HEALTHY MEDICATION * HOLD YOUR SPIRONOLACTONE TODAY, MAY TAKE USUAL TOMORROW * RESUME ALL HOME MEDICATIONS ,EXCEPT FOR YOUR DULOXETINE HAS CHANGED TO 30 MG BY MOUTH DAILY CONTINUE TO PUSH FLUIDS TODAY RECOMMEND REPEAT BMP AT FOLLOW UP YOU HAVE A HOSPITAL FOLLOW UP WITH [facility] ON Thursday AT 9:15 WITH BENEDICT GLASER. SHOULD YOU HAVE ANY QUESTIONS OR NEED TO RESCHEDULE YOU CAN CONTACT THEIR OFFICE AT [phone]. Instructions: Dehydration (GEN) Patient Disposition: HOME SELF-CARE Prescriptions: Continued gabapentin 300 mg capsule See Rx Instructions .ROUTE .COMPLEX Qty: 150 5RF Dose Instruction: TAKE ONE CAPSULE EVERY MORNING, TAKE TWO CAPSULES AT NOON, AND TAKE TWO CAPSULES AT BEDTIME Rx Instructions: TAKE ONE CAPSULE EVERY MORNING, TAKE TWO CAPSULES AT NOON, AND TAKE TWO CAPSULES AT BEDTIME Salonpas 3.1-10-6 % Adhesive Patch,Medicated 1 patch TOPICAL QAM Rx Instructions: Apply to Low Back atorvastatin 10 mg tablet 10 mg PO BEDTIME Patient Comments: TAKE 1 TABLET BY MOUTH DAILY AT BEDTIME albuterol sulfate 2.5 mg /3 mL (0.083 %) solution for nebulization 2.5 mg NEB QID Qty: 360 0RF Rx Instructions: DX: J44.1 albuterol sulfate [Ventolin HFA] 90 mcg/actuation HFA aerosol inhaler 2 puff IH Q4-6H PRN (Reason: shortness of breath or wheezing) Qty: 18 5RF spironolactone 25 mg tablet 25 mg PO QDAY lisinopril 10 mg tablet 10 mg PO QDAY Qty: 30 0RF metoprolol succinate 50 mg tablet extended release 24 hr 25 mg PO QDAY ferrous sulfate 325 mg (65 mg iron) tablet 325 mg PO QDAY budesonide-formoterol [Symbicort] 160-4.5 mcg/actuation HFA aerosol inhaler 2 puff inhalation BID Qty: 10.2 0RF bumetanide 1 mg tablet 1 mg PO QDAY PRN (Reason: >3# weight gain in 72 hours) Qty: 30 0RF Rx Instructions: Check daily weight. IF >3# gain in 72 hours take #1 tablet x 5 days. duloxetine 30 mg capsule,delayed release(DR/EC) 30 mg PO QDAY Qty: 14 0RF Discontinued duloxetine 60 mg capsule,delayed release(DR/EC) 60 mg PO QDAY Qty: 90 0RF Hold Instructions: Increase to after 14 days Did you review [place] [employer] for ALL controlled substances?: Not Applicable Discussed opioids are addictive and Narcan is available by prescription or from pharmacy.: No Condition: Good
== END 2022-10-29 10:15 | disposition home or self-care (01) ==
LOC: MEDSURG B 13:46 → ED 13:46 → MEDSURG B 17:35
PROVIDERS: ADMIT Hospitalist; ATTEND Physician Assistant
DX: Z79.899 Other long term (current) drug therapy; D50.9 Iron deficiency anemia, unspecified; J44.9 Chronic obstructive pulmonary disease, unspecified; N17.9 Acute kidney failure, unspecified; I10 Essential (primary) hypertension; R53.1 Weakness; F17.210 Nicotine dependence, cigarettes, uncomplicated; G90.09 Other idiopathic peripheral autonomic neuropathy; R91.8 Other nonspecific abnormal finding of lung field; E78.5 Hyperlipidemia, unspecified; E86.0 Dehydration; Z20.822 Contact with and (suspected) exposure to COVID-19; Z51.81 Encounter for therapeutic drug level monitoring; N28.1 Cyst of kidney, acquired; R19.7 Diarrhea, unspecified

== ENCOUNTER 2023-03-11 06:28 | Inpatient (IN) ==
[2023-03-11] MEDS ORDERED: DUONEB NEB ONE ×2 (06:48→07:39)
--- NOTE | 2023-03-11 06:52 | ED.PDOC ---
General <GALLITO FORD MD - Last Filed: 03/11/23 06:54> ED Provider: Dr. GALLITO FORD MD Chief Complaint: Shortness of Air Stated Complaint: Shortness of breath 77-year-old female brought in by daughter for evaluation of shortness of breath. She states that she has had cough with thick green/brown sputum for several days. Has had significantly labored breathing for the past 2 days. Has a history of anemia for which she is now seeing hematology. Also has a history of hypertension and COPD. Reports no chest pain but does report back pain. Denies any lower extremity swelling or fevers. Patient presents to the ER with initial sats in the mid 70s. Time Seen by Provider: 03/11/23 06:48 Mode of Arrival: Wheelchair Information Source: Patient Exam Limitations: Clinical condition Primary Care Provider: BENEDICT ANGEL PA-C Nursing and Triage Documentation Reviewed and Agree: Yes What is Opioid Naive?: *Opioid Naive implies the patient is not already taking opioids or not chronically receiving opioids on a daily basis. *PRN dosing is not "usually" associated with tolerance. *Patients are at higher risk of over-sedation and aspiration. What is Opioid Tolerant?: *Opioid Tolerance implies less than the expected response to an opioid. *Acquired tolerance is defined by the patient taking 60mg of oral morphine daily (or equianalgesic dose of another opioid) for 1 week or more. *Often associated with chronic pain. *May take more than usual dose to achieve desired pain control. Review of Systems <GALLITO FORD MD - Last Filed: 03/11/23 06:54> Review Of Systems Constitutional: Reports No symptoms Respiratory: Reports Cough, Shortness of Breath and Wheezing All Other Systems: Reviewed and Negative PFSH <GALLITO FORD MD - Last Filed: 03/11/23 06:54> Medical History Acute hypokalemia E87.6 - Hypokalemia (ICD-10) Acute dehydration E86.0 - Dehydration (ICD-10) GUNNER (acute kidney injury) N17.9 - Acute kidney failure, unspecified (ICD-10) Encounter for Medicare annual wellness exam Z00.00 - Encounter for general adult medical examination without abnormal findings (ICD-10) Peripheral edema 2+ edema to mid morales and 1+ to knee. Would recommend bumex 1mg daily x 5 days. Daily weight. Monitor salts/intake. DASH diet. Daily weights documented. R60.9 - Edema, unspecified (ICD-10) Bladder mass N32.89 - Other specified disorders of bladder (ICD-10) C. difficile colitis A04.72 - Enterocolitis due to Clostridium difficile, not specified as recurrent (ICD-10) History of acute renal failure Z87.448 - Personal history of other diseases of urinary system (ICD-10) Edema R60.9 - Edema, unspecified (ICD-10) Hospital discharge follow-up Z09 - Encounter for follow-up examination after completed treatment for conditions other than malignant neoplasm (ICD-10) Bladder mass N32.89 - Other specified disorders of bladder (ICD-10) History of recent hospitalization Z92.89 - Personal history of other medical treatment (ICD-10) Former tobacco use quit 2-3 weeks ago Z87.891 - Personal history of nicotine dependence (ICD-10) On supplemental oxygen by nasal cannula Z78.9 - Other specified health status (ICD-10) Hypomagnesemia E83.42 - Hypomagnesemia (ICD-10) Acute exacerbation of chronic obstructive pulmonary disease J44.1 - Chronic obstructive pulmonary disease with (acute) exacerbation (ICD-10) Hypokalemia E87.6 - Hypokalemia (ICD-10) Fatigue R53.83 - Other fatigue (ICD-10) Medicare annual wellness visit, subsequent Z00.00 - Encounter for general adult medical examination without abnormal findings (ICD-10) Depression F32.9 - Major depressive disorder, single episode, unspecified (ICD-10) Family History Mother , CHF CHF (congestive heart failure) SISTER , fell and hit her head. went to alf then Uterus cancer BROTHER , bladder cancer Bladder cancer Hypertension 19 CHILD , heart disease CHF (congestive heart failure) Other Asthma Social History Smoking and tobacco status: Current every day smoker Tobacco: How many years used: 50 Passive smoking exposure: No Quit status: not considering quitting Second hand smoke exposure: No Alcohol intake: never Counseling given: No Substance use type: does not use Counseling given: No Tesha/anglican: [employer] Special tesha needs: No Agree to transfusion: Yes Adopted: No Caregiver/support person: No Foster care: No Household members: family and other Other Household Members: granddaughter Housing: house Marital status: W / Lives independently: No Daycare: no daycare Number of children: 2 Number of grandchildren: 6 Highest education level completed: GED or equivalent Financial difficulty paying for basics: not very hard service: No FPC: No Current occupational status: employed Current occupation: [employer] Current occupational exposures/hazards: No Previous occupational history: [employer] for over 30 years Pets and animals: Yes (cats dog hermit crabs) Leisure activites: other History of recent travel: No Sexually active: No Do you think of yourself as: straight/heterosexual Current gender identity: female Seatbelt use: always Helmet use: No Drives intoxicated or rides with intoxicated lease purchase truck 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: No Current diet type/program: regular Water heater temperature set < 120 degrees: Yes Working smoke detector in home: Yes Fire extinguisher in home: Yes Carbon monoxide detector in home: Yes Firearms in home: No Surgical History History of heart artery stent Z95.5 - Presence of coronary angioplasty implant and graft (ICD-10) History of vascular surgery (~01/2018) lower extremity bypass sx Dr Cruz 01/2018 Z98.890 - Other specified postprocedural states (ICD-10) Status post hysterectomy 1976 Z90.710 - Acquired absence of both cervix and uterus (ICD-10) Female Reproductive History Menstrual Age of Menarche: 11 Hx Hysterectomy: Yes Hx Tubal Ligation: No Physical Exam <GALLITO FORD MD - Last Filed: 03/11/23 06:54> Physical Exam Appearance: Reports Ill-appearing Ill-appearing: Severe Pain Distress: None Eyes: Reports EOMI ENT: Reports Oropharynx normal Neck: Supple Respiratory: Reports Airway patent, Crackles, Wheezes and Retractions Cardiovascular: Reports Tachycardia GI/: Reports Soft Musculoskeletal: Reports Normal strength and No edema Skin: Reports Warm and Pale Neurological: Reports Alert Psychiatric: Reports Affect appropriate Interpretation <CHERRIE COOK MD - Last Filed: 03/11/23 10:18> EKG Interpretation Time of EKG #1: 07:09 Rate: Tachy Rhythm: Sinus (128) Ectopy: None [place]: [place] ST Segment: Normal EKG Interpretation By: ED Physician Re-Evaluation <CHERRIE COOK MD - Last Filed: 03/11/23 10:18> Re-Evaluation Time of Re-Evaluation: 08:13 Status: Improved Vital Signs Stable: Yes Pain Level: O2 sats 100% on bipap. Appearance: Other (mild discomfort with deep inhalations.) Skin: Warm and Dry Neuro: Alert and Oriented X3 CV: RRR Re-Evaluation Time of Re-Evaluation: 08:33 Status: Unchanged (Patient's blood pressure has come down. However the patient is uncomfortable with BiPAP. The tech has adjusted the mask. I have given her some Ativan and waiting to see how it affects her tolerance.) and Worse Vital Signs Stable: Yes Course <GALLITO FORD MD - Last Filed: 03/11/23 06:54> Course 03/11/23 07:09 03/11/23 07:09 Orders, Labs, Meds: Lab Review 03/11/23 03/11/23 03/11/23 06:52 06:58 07:09 WBC 17.61 H RBC 3.17 L Hgb 9.9 L Hct 33.0 L MCV 104.1 H MCH 31.2 H MCHC 30.0 L RDW Coeff of Beth 12.6 Plt Count 380 Immature Gran % (Auto) 0.7 Neut % (Auto) 59.4 Lymph % (Auto) 28.8 [place] % (Auto) 7.8 Eos % (Auto) 2.5 Baso % (Auto) 0.8 Neut # (Auto) 10.4 H Lymph # (Auto) 5.1 H [place] # (Auto) 1.4 Eos # (Auto) 0.4 Baso # (Auto) 0.1 Immature Gran # (Auto) 0.1 PT 9.8 INR 0.94 Puncture Site Lbrach Base Excess -8.3 L O2 Saturation 99.6 H ABG pH 7.21 L* ABG pCO2 49.0 H ABG pO2 215.0 H ABG HCO3 19.6 L ABG Total CO2 21.1 Boaz Test N/a Hemoglobin 1.5 Oxyhemoglobin 95.3 Carboxyhemoglobin 2.6 H Total Hemoglobin 10.4 L FiO2 % 100.0 Sodium 136.8 Potassium 5.54 H Chloride 106.2 Carbon Dioxide 20.7 L Anion Gap 15.44 BUN 22.2 H Creatinine 1.63 H Estimated GFR (MDRD) 31.00 BUN/Creatinine Ratio 13.61 Glucose 385.9 H Lactic Acid 2.95 H Calcium 9.17 Total Bilirubin 0.16 L AST 34.6 ALT 20.2 Alkaline Phosphatase 79.2 Troponin I 0.015 NT-Pro-B Natriuret Pep 24966 H Total Protein 7.29 Albumin 3.79 Globulin 3.50 Albumin/Globulin Ratio 1.08 Procalcitonin 0.09 Influ A Molecular Assay Negative by naat Influ B Molecular Assay Negative by naat RSV Antigen Negative by naat SARS CoV-2 RNA Rapid KAYLENE Negative Blood Type O POSITIVE Antibody Screen Negative 03/11/23 09:10 WBC RBC Hgb Hct MCV MCH MCHC RDW Coeff of Beth Plt Count Immature Gran % (Auto) Neut % (Auto) Lymph % (Auto) [place] % (Auto) Eos % (Auto) Baso % (Auto) Neut # (Auto) Lymph # (Auto) [place] # (Auto) Eos # (Auto) Baso # (Auto) Immature Gran # (Auto) PT INR Puncture Site Rrad Base Excess -1.9 O2 Saturation 98.5 H ABG pH 7.35 ABG pCO2 43.0 ABG pO2 120.0 H ABG HCO3 23.7 ABG Total CO2 25.0 H Boaz Test Pos Hemoglobin 1.1 Oxyhemoglobin 96.3 Carboxyhemoglobin 1.6 H Total Hemoglobin 10.0 L FiO2 % 50.0 Sodium Potassium Chloride Carbon Dioxide Anion Gap BUN Creatinine Estimated GFR (MDRD) BUN/Creatinine Ratio Glucose Lactic Acid Calcium Total Bilirubin AST ALT Alkaline Phosphatase Troponin I NT-Pro-B Natriuret Pep Total Protein Albumin Globulin Albumin/Globulin Ratio Procalcitonin Influ A Molecular Assay Influ B Molecular Assay RSV Antigen SARS CoV-2 RNA Rapid KAYLENE Blood Type Antibody Screen Orders Category Date Time Status ABG DRAW REQUEST Stat CARDIO 03/11/23 06:48 Completed ABG DRAW REQUEST Stat CARDIO 03/11/23 09:01 Ordered BIPAP Routine CARDIO 03/11/23 06:48 Active EKG-(ED ONLY) Stat CARDIO 03/11/23 06:48 Completed ED IV/MEDIPORT/POWERPORT .ONCE EMERGENCY 03/11/23 06:48 Active ABG COOX DAILY@0600 LAB 03/12/23 06:00 Ordered ABG COOX DAILY@0600 LAB 03/13/23 06:00 Ordered ABG COOX DAILY@0600 LAB 03/14/23 06:00 Ordered ABG COOX DAILY@0600 LAB 03/15/23 06:00 Ordered ABG COOX Stat LAB 03/11/23 06:58 Completed ABG COOX Stat LAB 03/11/23 09:10 Completed BLOOD CULTURE (ED ONLY) Stat LAB 03/11/23 07:27 Received CBC W/ AUTO DIFF Stat LAB 03/11/23 07:09 Completed CMP [COMPREHENSIVE METABOLIC PANEL] Stat LAB 03/11/23 07:09 Completed ED PROBNP [NT-PROBNP(ED)] Stat LAB 03/11/23 07:09 Completed FLU A & B MOLECULAR [FLU A/B MOLECULAR] Stat LAB 03/11/23 06:52 Completed LACTIC ACID Stat LAB 03/11/23 07:09 Completed PROCALCITONIN Stat LAB 03/11/23 07:09 Completed PT WITH INR Stat LAB 03/11/23 07:09 Completed RSV Stat LAB 03/11/23 06:52 Completed SARS COV-2 RNA RAPID KAYLENE Stat LAB 03/11/23 06:52 Completed TROPONIN I Stat LAB 03/11/23 07:09 Completed TYPE AND SCREEN Stat LAB 03/11/23 07:09 Completed 0.9 % Sodium Chloride [Saline Flush] Meds 03/11/23 06:48 Active 1 syr IVF PRN PRN Ceftriaxone/D5w 1 gm Premix [Rocephin 1 gm/50 ml D5w] Meds 03/11/23 09:19 Discontinued 1 gm in 50 ml IV ONCE Hydralazine HCl Meds 03/11/23 08:03 Discontinued 10 mg IVP ONCE ONE Ipratropium/Albuterol Neb [Duoneb] Meds 03/11/23 06:48 Discontinued 3 ml NEB ONCE ONE Ipratropium/Albuterol Neb [Duoneb] Meds 03/11/23 07:39 Discontinued 3 ml NEB ONCE ONE Lorazepam [Ativan] Meds 03/11/23 08:27 Discontinued 1 mg IVP ONCE ONE Methylprednisolone Sod Succ/Pf [Solu-Medrol 125 mg] Meds 03/11/23 07:39 Discontinued 125 mg IVP ONCE ONE Nitroglycerin [Nitro-Bid] Meds 03/11/23 06:54 Discontinued 0.5 inch TD ONCE ONE Nitroglycerin [Nitro-Bid] Meds 03/11/23 06:55 Discontinued 0.5 inch TD ONCE STA CHEST, 1V AP ONLY Stat RADS 03/11/23 06:48 Completed Medications Generic Name Dose Route Start Last Admin Trade Name Freq PRN Reason Stop Dose Admin Sodium Chloride 1,000 mls @ 100 mls/hr 03/11/23 10:30 Sodium Chloride IV .Q10H DOUG Sodium Chloride 1 syr 03/11/23 06:48 0.9% Sodium Chloride 10 Ml Disp.Syrin IVF PRN PRN To flush IV Discontinued Medications Generic Name Dose Route Start Last Admin Trade Name Freq PRN Reason Stop Dose Admin Albuterol/Ipratropium 3 ml 03/11/23 06:48 03/11/23 06:50 Ipratropium/Albuterol Vial.[facility] 03/11/23 06:49 3 ml ONCE ONE Administration Albuterol/Ipratropium 3 ml 03/11/23 07:39 03/11/23 07:46 Ipratropium/Albuterol Vial.[facility] 03/11/23 07:40 3 ml ONCE ONE Administration Hydralazine HCl 10 mg 03/11/23 08:03 03/11/23 08:10 Hydralazine Hcl 20 Mg/Ml Sdv IVP 03/11/23 08:04 10 mg ONCE ONE Administration CEFTRIAXONE/D5W 1 GM PREMIX 1 gm in 50 mls @ 100 mls/hr 03/11/23 09:19 03/11/23 09:30 Rocephin 1 Gm/50 Ml D5w IV 03/11/23 09:48 100 mls/hr ONCE ONE Administration Lorazepam 1 mg 03/11/23 08:27 03/11/23 08:31 Lorazepam Inj 2 Mg/Ml Vial IVP 03/11/23 08:28 1 mg ONCE ONE Administration Methylprednisolone Sodium Succinate 125 mg 03/11/23 07:39 03/11/23 07:50 Methylprednisolone Sod Succ/Pf 125 Mg/2 Ml Vial IVP 03/11/23 07:40 125 mg ONCE ONE Administration Nitroglycerin 0.5 inch 03/11/23 06:54 03/11/23 07:00 Nitroglycerin 1 Gm Oint TD 03/11/23 06:55 0.5 inch ONCE ONE Administration Nitroglycerin 0.5 inch 03/11/23 06:55 03/11/23 07:00 Nitroglycerin 1 Gm Oint TD 03/11/23 06:56 Not Given ONCE STA 7 AM patient to be signed out to oncoming physician Dr. Cook Vital Signs: Temp Pulse Resp BP Pulse Ox 03/11/23 07:20 100 03/11/23 07:00 100 03/11/23 06:32 97.3 F L 131 H 29 H 244/111 H 83 L <CHERRIE COOK MD - Last Filed: 03/11/23 10:18> Course Orders, Labs, Meds: Lab Review 03/11/23 03/11/23 03/11/23 06:52 06:58 07:09 WBC 17.61 H RBC 3.17 L Hgb 9.9 L Hct 33.0 L MCV 104.1 H MCH 31.2 H MCHC 30.0 L RDW Coeff of Beth 12.6 Plt Count 380 Immature Gran % (Auto) 0.7 Neut % (Auto) 59.4 Lymph % (Auto) 28.8 [place] % (Auto) 7.8 Eos % (Auto) 2.5 Baso % (Auto) 0.8 Neut # (Auto) 10.4 H Lymph # (Auto) 5.1 H [place] # (Auto) 1.4 Eos # (Auto) 0.4 Baso # (Auto) 0.1 Immature Gran # (Auto) 0.1 PT 9.8 INR 0.94 Puncture Site Lbrach Base Excess -8.3 L O2 Saturation 99.6 H ABG pH 7.21 L* ABG pCO2 49.0 H ABG pO2 215.0 H ABG HCO3 19.6 L ABG Total CO2 21.1 [place]az Test N/a Hemoglobin 1.5 Oxyhemoglobin 95.3 Carboxyhemoglobin 2.6 H Total Hemoglobin 10.4 L FiO2 % 100.0 Sodium 136.8 Potassium 5.54 H Chloride 106.2 Carbon Dioxide 20.7 L Anion Gap 15.44 BUN 22.2 H Creatinine 1.63 H Estimated GFR (MDRD) 31.00 BUN/Creatinine Ratio 13.61 Glucose 385.9 H Lactic Acid 2.95 H Calcium 9.17 Total Bilirubin 0.16 L AST 34.6 ALT 20.2 Alkaline Phosphatase 79.2 Troponin I 0.015 NT-Pro-B Natriuret Pep 06323 H Total Protein 7.29 Albumin 3.79 Globulin 3.50 Albumin/Globulin Ratio 1.08 Procalcitonin 0.09 Influ A Molecular Assay Negative by naat Influ B Molecular Assay Negative by naat RSV Antigen Negative by naat SARS CoV-2 RNA Rapid KAYLENE Negative Blood Type O POSITIVE Antibody Screen Negative 03/11/23 09:10 WBC RBC Hgb Hct MCV MCH MCHC RDW Coeff of Beth Plt Count Immature Gran % (Auto) Neut % (Auto) Lymph % (Auto) [place] % (Auto) Eos % (Auto) Baso % (Auto) Neut # (Auto) Lymph # (Auto) [place] # (Auto) Eos # (Auto) Baso # (Auto) Immature Gran # (Auto) PT INR Puncture Site Rrad Base Excess -1.9 O2 Saturation 98.5 H ABG pH 7.35 ABG pCO2 43.0 ABG pO2 120.0 H ABG HCO3 23.7 ABG Total CO2 25.0 H [place] Test Pos Hemoglobin 1.1 Oxyhemoglobin 96.3 Carboxyhemoglobin 1.6 H Total Hemoglobin 10.0 L FiO2 % 50.0 Sodium Potassium Chloride Carbon Dioxide Anion Gap BUN Creatinine Estimated GFR (MDRD) BUN/Creatinine Ratio Glucose Lactic Acid Calcium Total Bilirubin AST ALT Alkaline Phosphatase Troponin I NT-Pro-B Natriuret Pep Total Protein Albumin Globulin Albumin/Globulin Ratio Procalcitonin Influ A Molecular Assay Influ B Molecular Assay RSV Antigen SARS CoV-2 RNA Rapid KAYLENE Blood Type Antibody Screen Orders Category Date Time Status ABG DRAW REQUEST Stat CARDIO 03/11/23 06:48 Completed ABG DRAW REQUEST Stat CARDIO 03/11/23 09:01 Ordered BIPAP Routine CARDIO 03/11/23 06:48 Active EKG-(ED ONLY) Stat CARDIO 03/11/23 06:48 Completed ED IV/MEDIPORT/POWERPORT .ONCE EMERGENCY 03/11/23 06:48 Active ABG COOX DAILY@0600 LAB 03/12/23 06:00 Ordered ABG COOX DAILY@0600 LAB 03/13/23 06:00 Ordered ABG COOX DAILY@0600 LAB 03/14/23 06:00 Ordered ABG COOX DAILY@0600 LAB 03/15/23 06:00 Ordered ABG COOX Stat LAB 03/11/23 06:58 Completed ABG COOX Stat LAB 03/11/23 09:10 Completed BLOOD CULTURE (ED ONLY) Stat LAB 03/11/23 07:27 Received CBC W/ AUTO DIFF Stat LAB 03/11/23 07:09 Completed CMP [COMPREHENSIVE METABOLIC PANEL] Stat LAB 03/11/23 07:09 Completed ED PROBNP [NT-PROBNP(ED)] Stat LAB 03/11/23 07:09 Completed FLU A & B MOLECULAR [FLU A/B MOLECULAR] Stat LAB 03/11/23 06:52 Completed LACTIC ACID Stat LAB 03/11/23 07:09 Completed PROCALCITONIN Stat LAB 03/11/23 07:09 Completed PT WITH INR Stat LAB 03/11/23 07:09 Completed RSV Stat LAB 03/11/23 06:52 Completed SARS COV-2 RNA RAPID KAYLENE Stat LAB 03/11/23 06:52 Completed TROPONIN I Stat LAB 03/11/23 07:09 Completed TYPE AND SCREEN Stat LAB 03/11/23 07:09 Completed 0.9 % Sodium Chloride [Saline Flush] Meds 03/11/23 06:48 Active 1 syr IVF PRN PRN Ceftriaxone/D5w 1 gm Premix [Rocephin 1 gm/50 ml D5w] Meds 03/11/23 09:19 Discontinued 1 gm in 50 ml IV ONCE Hydralazine HCl Meds 03/11/23 08:03 Discontinued 10 mg IVP ONCE ONE Ipratropium/Albuterol Neb [Duoneb] Meds 03/11/23 06:48 Discontinued 3 ml NEB ONCE ONE Ipratropium/Albuterol Neb [Duoneb] Meds 03/11/23 07:39 Discontinued 3 ml NEB ONCE ONE Lorazepam [Ativan] Meds 03/11/23 08:27 Discontinued 1 mg IVP ONCE ONE Methylprednisolone Sod Succ/Pf [Solu-Medrol 125 mg] Meds 03/11/23 07:39 Discontinued 125 mg IVP ONCE ONE Nitroglycerin [Nitro-Bid] Meds 03/11/23 06:54 Discontinued 0.5 inch TD ONCE ONE Nitroglycerin [Nitro-Bid] Meds 03/11/23 06:55 Discontinued 0.5 inch TD ONCE STA CHEST, 1V AP ONLY Stat RADS 03/11/23 06:48 Completed Medications Generic Name Dose Route Start Last Admin Trade Name Freq PRN Reason Stop Dose Admin Sodium Chloride 1,000 mls @ 100 mls/hr 03/11/23 10:30 Sodium Chloride IV .Q10H DOUG Sodium Chloride 1 syr 03/11/23 06:48 0.9% Sodium Chloride 10 Ml Disp.Syrin IVF PRN PRN To flush IV Discontinued Medications Generic Name Dose Route Start Last Admin Trade Name Freq PRN Reason Stop Dose Admin Albuterol/Ipratropium 3 ml 03/11/23 06:48 03/11/23 06:50 Ipratropium/Albuterol Vial.[facility] 03/11/23 06:49 3 ml ONCE ONE Administration Albuterol/Ipratropium 3 ml 03/11/23 07:39 03/11/23 07:46 Ipratropium/Albuterol Vial.[facility] 03/11/23 07:40 3 ml ONCE ONE Administration Hydralazine HCl 10 mg 03/11/23 08:03 03/11/23 08:10 Hydralazine Hcl 20 Mg/Ml Sdv IVP 03/11/23 08:04 10 mg ONCE ONE Administration CEFTRIAXONE/D5W 1 GM PREMIX 1 gm in 50 mls @ 100 mls/hr 03/11/23 09:19 03/11/23 09:30 Rocephin 1 Gm/50 Ml D5w IV 03/11/23 09:48 100 mls/hr ONCE ONE Administration Lorazepam 1 mg 03/11/23 08:27 03/11/23 08:31 Lorazepam Inj 2 Mg/Ml Vial IVP 03/11/23 08:28 1 mg ONCE ONE Administration Methylprednisolone Sodium Succinate 125 mg 03/11/23 07:39 03/11/23 07:50 Methylprednisolone Sod Succ/Pf 125 Mg/2 Ml Vial IVP 03/11/23 07:40 125 mg ONCE ONE Administration Nitroglycerin 0.5 inch 03/11/23 06:54 03/11/23 07:00 Nitroglycerin 1 Gm Oint TD 03/11/23 06:55 0.5 inch ONCE ONE Administration Nitroglycerin 0.5 inch 03/11/23 06:55 03/11/23 07:00 Nitroglycerin 1 Gm Oint TD 03/11/23 06:56 Not Given ONCE STA Vital Signs: Temp Pulse Resp BP Pulse Ox 03/11/23 07:20 100 03/11/23 07:00 100 03/11/23 06:32 97.3 F L 131 H 29 H 244/111 H 83 L Chest x-ray is consistent with pneumonia. Initial lactic acid is elevated. Patient's received Rocephin as well as a liter of fluid. Will repeat her lactic acid shortly. Discharge Plan Discharge Patient Disposition: PLACED OBSERVATION Discharge Problem: Chronic obstructive pulmonary disease, CAP (community acquired pneumonia) Did you review [place] PHARMACIST IN CHARGE for ALL controlled substances?: Not Applicable ED Provider: CHERRIE COOK Condition: Stable <GALLITO FORD MD - Last Filed: 03/11/23 06:54> Physician Progress Note: [] <CHERRIE COOK MD - Last Filed: 03/11/23 10:18> Physician Progress Note: [Patient has been tolerant of BiPAP. Much improved with Ativan. Repeat ABGs are encouraging.
[2023-03-11] MEDS ORDERED: NITRO-BID TD ONE (06:54)
[2023-03-11] MEDS ORDERED: NITRO-BID TD STA (06:55)
[2023-03-11 07:11] LABS: ABG O2 HGB 95.3 % (95-100); BEecf -8.3 (-2.0-3.0); COHb 2.6 (0.5-1.5); HCO3 19.6 (21-28); MetHb 1.5 (0-1.5); TCO2 21.1 (19-24); sO2 99.6 % (94-98); tHb 10.4 g/dl (11.7-17.4)
[2023-03-11 07:16] LABS: MOLECULAR FLU A NEGATIVE BY NAAT (NEGATIVE); MOLECULAR FLU B NEGATIVE BY NAAT (NEGATIVE); SARS COV-2 RNA RAPID NAAT NEGATIVE (NEGATIVE)
[2023-03-11 07:16] LABS: ABG PH 7.21 (7.35-7.45)
[2023-03-11 07:17] LABS: BASOPHILS # (AUTO) 0.1 K/uL (0-0.2); BASOPHILS % (AUTO) 0.8 % (0.0-3.0); EOSINOPHILS # (AUTO) 0.4 K/ul (0.0-0.7); EOSINOPHILS % (AUTO) 2.5 % (0.0-7.0); HEMOGLOBIN 9.9 g/dl (12.0-16.0); IMMATURE GRANULOCYTE # (AUTO) 0.1 (0.0-1.0); IMMATURE GRANULOCYTE % (AUTO) 0.7 % (0.0-5.0); LYMPHOCYTES # (AUTO) 5.1 K/uL (0.60-3.4); LYMPHOCYTES % (AUTO) 28.8 (10.0-50.0); MEAN CORPUSCULAR HEMOGLOBIN 31.2 pg (27.0-31.0); MEAN CORPUSCULAR VOLUME 104.1 fl (81.0-99.0); MONOCYTES # (AUTO) 1.4 K/uL (0.4-2.0); MONOCYTES % (AUTO) 7.8 (0-10); NEUTROPHILS # (AUTO) 10.4 K/ul (2.0-6.9); NEUTROPHILS % (AUTO) 59.4 % (42.2-75.2); PLATELET COUNT 380 10^3/uL (140-440); RDW COEFFICIENT OF VARIATION 12.6 % (11.6-14.8); RED BLOOD COUNT 3.17 10^6/ul (4.20-5.40); WHITE BLOOD COUNT 17.61 K/ul (4.6-10.2)
[2023-03-11 07:24] LABS: RSV MOLECULAR NEGATIVE BY NAAT (NEGATIVE)
[2023-03-11 07:28] LABS: PROTHROMBIN TIME 9.8 SEC (9.3-11.0)
[2023-03-11 07:30] LABS: ALANINE AMINOTRANSFERASE 20.2 U/L (0-35); ALBUMIN 3.79 g/dL (3.5-5.0); ALKALINE PHOSPHATASE 79.2 U/L (53-141); ASPARTATE AMINO TRANSFERASE 34.6 U/L (14-36); BILIRUBIN,TOTAL 0.16 mg/dL (0.2-1.3); BLOOD UREA NITROGEN 22.2 mg/dL (7-17); CALCIUM 9.17 mg/dL (8.4-10.2); CARBON DIOXIDE 20.7 mmol/L (22-30.0); CHLORIDE 106.2 mmol/L (98-107); CREATININE 1.63 mg/dL (0.60-1.30); GLUCOSE 385.9 mg/dL (74-106); POTASSIUM 5.54 mmol/L (3.5-5.1); SODIUM 136.8 mmol/L (134.5-145); TOTAL PROTEIN 7.29 g/dL (6.3-8.2)
[2023-03-11] MEDS ORDERED: SOLU-MEDROL 125 MG IVP ONE (07:39)
[2023-03-11 07:42] LABS: TROPONIN I 0.015 ng/ml (0.0000-0.120)
--- NOTE | 2023-03-11 08:01 | DI ---
EXAM: CHEST ONE-VIEW PORTABLE UPRIGHT HISTORY: Difficulty breathing COMPARISON: The 04/30/2022 FINDINGS: L bilateral interstitial pulmonary opacities are present. This may be either pneumonia or interstitial edema. Cardiac silhouette is mildly enlarged. Vascular calcifications present in the aortic arch. Cardiac monitoring leads are present. IMPRESSION: Bilateral interstitial opacities. Differential considerations include interstitial gisele a or interstitial pneumonia.
[2023-03-11] MEDS ORDERED: HYDRALAZINE HCL IVP ONE (08:03)
[2023-03-11] MEDS ORDERED: ATIVAN IVP ONE (08:27)
[2023-03-11] MEDS ORDERED: ROCEPHIN 1 GM/50 ML D5W 1 GM/50 ML BAG IV ONE (09:19)
[2023-03-11 09:28] LABS: ABG O2 HGB 96.3 % (95-100); ABG PH 7.35 (7.35-7.45); BEecf -1.9 (-2.0-3.0); COHb 1.6 (0.5-1.5); HCO3 23.7 (21-28); MetHb 1.1 (0-1.5); sO2 98.5 % (94-98)
[2023-03-11] MEDS ORDERED: SODIUM CHLORIDE 1,000 ML IV SCH (10:30)
[2023-03-11 10:31] VITALS: BMI 17.2
[2023-03-11] MEDS ORDERED: TYLENOL PO PRN (10:37)
[2023-03-11] MEDS ORDERED: MORPHINE 2 MG/ML SYRINGE IVP PRN (10:42)
[2023-03-11] MEDS ORDERED: HYDRALAZINE HCL IVP PRN (10:42)
[2023-03-11] MEDS ORDERED: ZOFRAN 4 MG/2 ML IVP PRN (10:42)
--- NOTE | 2023-03-11 10:52 | PCM ---
Date of Service Date Seen by Provider: 03/11/23 Time Seen by Provider: 10:30 Admit Day/Time Admission Date: 03/11/23 Admission Time: 10:10 Reason for Admission Chief Complaint: COPD EXACERBATION; PNEUMONIA Hospital Provider Hospital Provider: KATIA ANDRADE, [facility] Primary Care Physician Primary Care Physician: BENEDICT ANGEL PA-C History of Present Illness History of Present Illness: 77 yo female presented to the ER with family with complaints of shortness of breath. Family reports patient worked yesterday and was not complaining of any problems until she called her around 6 am this morning. She was unable to walk or do anything at that time. Family carried patient to car to get to the ER. On arrival, she was 83% on RA and BP was 200s/100s. She was placed on a non-rebreat her and then BIPAP. Work-up showed interstitial edema vs pneumonia on chest x- ray. Repeat abgs showed improvement on BIPAP and is on 50% FiO2 at this time maintaining a sat of 99-100%. BNP was found to be elevated but clinically does not appear to be overloaded at this time. Family reports she has questionable history of CHF but takes bumex as needed for edema. Has pmh of COPD and current every day smoker. She is supposed to wear oxygen at home but refuses. Patient unable to provide HPI due to work of breathing. Case Discussed With Case Discussed With: Patient's case was discussed with the ER Physicians, Dr. Donnelly. [facility] Medical History Acute hypokalemia E87.6 - Hypokalemia (ICD-10) Acute dehydration E86.0 - Dehydration (ICD-10) GUNNER (acute kidney injury) N17.9 - Acute kidney failure, unspecified (ICD-10) Encounter for Medicare annual wellness exam Z00.00 - Encounter for general adult medical examination without abnormal findings (ICD-10) Peripheral edema 2+ edema to mid morales and 1+ to knee. Would recommend bumex 1mg daily x 5 days. Daily weight. Monitor salts/intake. DASH diet. Daily weights documented. R60.9 - Edema, unspecified (ICD-10) Bladder mass N32.89 - Other specified disorders of bladder (ICD-10) C. difficile colitis A04.72 - Enterocolitis due to Clostridium difficile, not specified as recurrent (ICD-10) History of acute renal failure Z87.448 - Personal history of other diseases of urinary system (ICD-10) Edema R60.9 - Edema, unspecified (ICD-10) Hospital discharge follow-up Z09 - Encounter for follow-up examination after completed treatment for conditions other than malignant neoplasm (ICD-10) Bladder mass N32.89 - Other specified disorders of bladder (ICD-10) History of recent hospitalization Z92.89 - Personal history of other medical treatment (ICD-10) Former tobacco use quit 2-3 weeks ago Z87.891 - Personal history of nicotine dependence (ICD-10) On supplemental oxygen by nasal cannula Z78.9 - Other specified health status (ICD-10) Hypomagnesemia E83.42 - Hypomagnesemia (ICD-10) Acute exacerbation of chronic obstructive pulmonary disease J44.1 - Chronic obstructive pulmonary disease with (acute) exacerbation (ICD-10) Hypokalemia E87.6 - Hypokalemia (ICD-10) Fatigue R53.83 - Other fatigue (ICD-10) Medicare annual wellness visit, subsequent Z00.00 - Encounter for general adult medical examination without abnormal findings (ICD-10) Depression F32.9 - Major depressive disorder, single episode, unspecified (ICD-10) Surgical History History of heart artery stent Z95.5 - Presence of coronary angioplasty implant and graft (ICD-10) History of vascular surgery (~01/2018) lower extremity bypass sx Dr Cruz 01/2018 Z98.890 - Other specified postprocedural states (ICD-10) Status post hysterectomy 1976 Z90.710 - Acquired absence of both cervix and uterus (ICD-10) Family History Mother , CHF CHF (congestive heart failure) SISTER , fell and hit her head. went to group home then Uterus cancer BROTHER , bladder cancer Bladder cancer Hypertension 19 CHILD , heart disease CHF (congestive heart failure) Other Asthma Social History Smoking and tobacco status: Current every day smoker Tobacco: How many years used: 50 Passive smoking exposure: No Quit status: not considering quitting Second hand smoke exposure: No Alcohol intake: never Counseling given: No Substance use type: does not use Counseling given: No Tesha/orthodox: FAITH Special tesha needs: No Agree to transfusion: Yes Adopted: No Caregiver/support person: No Foster care: No Household members: family and other Other Household Members: granddaughter Housing: house Marital status: W / Lives independently: No Daycare: no daycare Number of children: 2 Number of grandchildren: 6 Highest education level completed: GED or equivalent Financial difficulty paying for basics: not very hard service: No intermediate: No Current occupational status: employed Current occupation: [employer] Current occupational exposures/hazards: No Previous occupational history: [employer] for over 30 years Pets and animals: Yes (cats dog hermit crabs) Leisure activites: other History of recent travel: No Sexually active: No Do you think of yourself as: straight/heterosexual Current gender identity: female Seatbelt use: always Helmet use: No Drives intoxicated or rides with intoxicated sprinkler truck 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 Current diet type/program: regular Water heater temperature set < 120 degrees: Yes Working smoke detector in home: Yes Fire extinguisher in home: Yes Carbon monoxide detector in home: Yes Firearms in home: No Allergies Allergies Allergy/AdvReac Type Severity Reaction Status Date / Time sulfamethoxazole Allergy Mild See Verified 03/11/23 06:49 [From Bactrim] comment bubble trimethoprim [From Bactrim] Allergy Mild See Verified 03/11/23 06:49 comment bubble amlodipine [From Norvasc] AdvReac Intermediate peripheral Verified 03/11/23 06:49 edema Current Medications Home Medications camphor 3.1 %-methyl salicylate 10 %-menthol 6 % topical patch (Salonpas) 1 patch topical QAM 01/07/19 [History Confirmed 03/11/23 Last Taken 09/26/20] albuterol sulfate 90 mcg/actuation aerosol inhaler (Ventolin HFA) 2 puff inhalation Q4-6H PRN shortness of breath or wheezing #18 grams 03/31/22 [Rx Confirmed 03/11/23 Last Taken Unknown] metoprolol succinate 50 mg tablet,extended release 24 hr 50 mg PO QDAY 05/08/22 [History Confirmed 03/11/23 Last Taken Unknown] budesonide-formoterol HFA 160 mcg-4.5 mcg/actuation aerosol inhaler (Symbicort) 2 puff inhalation BID #10.2 grams 10/23/22 [Rx Confirmed 03/11/23 Last Taken Unknown] bumetanide 1 mg tablet 1 mg PO QDAY PRN >3# weight gain in 72 hours #30 tabs 10/23/22 [Rx Confirmed 03/11/23 Last Taken Unknown] duloxetine 30 mg capsule,delayed release 30 mg PO QDAY #14 caps 10/23/22 [Rx Confirmed 03/11/23 Last Taken Unknown] atorvastatin 10 mg tablet 10 mg PO BEDTIME 10/27/22 [History Confirmed 03/11/23 Last Taken Unknown] gabapentin 300 mg capsule 300 mg PO TID PRN pain 12/18/22 [History Confirmed 03/11/23 Last Taken Unknown] acetaminophen 325 mg tablet (Pain Relief (acetaminophen)) 650 mg PO Q4-6H PRN PAIN/FEVER 03/11/23 [History Confirmed 03/11/23 Last Taken Unknown] albuterol sulfate 2.5 mg/3 mL (0.083 %) solution for nebulization 2.5 mg NEB QID PRN shortness of breath 03/11/23 [History Confirmed 03/11/23 Last Taken Unknown] guaifenesin 1,200 mg tablet, extended release 12 hr (Mucinex) 1,200 mg PO BID 03/11/23 [History Confirmed 03/11/23 Last Taken Unknown] pregabalin 50 mg capsule 50 mg PO BID 03/11/23 [History Confirmed 03/11/23 Last Taken Unknown] tramadol 50 mg tablet 50 mg PO Q8H PRN pain 03/11/23 [History Confirmed 03/11/23 Last Taken Unknown] Home Acetaminophen (Acetaminophen 325 Mg Tablet) 650 mg PO Q4H PRN PRN Reason: Mild Pain Last Admin: 03/11/23 14:40 Dose: 650 mg Albuterol Sulfate (Albuterol Sulfate 0.083% Vial.Neb) 2.5 mg NEB RTQ4H PRN PRN Reason: Wheezing Albuterol/Ipratropium (Ipratropium/Albuterol Vial.Neb) 3 ml NEB RTQ4H DOUG Last Admin: 03/11/23 17:23 Dose: 3 ml Enoxaparin Sodium (Enoxaparin Sodium 30 Mg/0.3 Ml Syr) 30 mg SUBCUT DAILY [facility] Gabapentin (Gabapentin 300 Mg Capsule) 300 mg PO TID PRN PRN Reason: neuropathy Guaifenesin (Guaifenesin 600 Mg Tablet.Er) 1,200 mg PO BID [facility] Last Admin: 03/11/23 20:52 Dose: 1,200 mg Hydralazine HCl (Hydralazine Hcl 20 Mg/Ml Sdv) 10 mg IVP Q6H PRN PRN Reason: Hypertension CEFTRIAXONE/D5W 1 GM PREMIX (Rocephin 1 Gm/50 Ml D5w) 1 gm in 50 mls @ 75 mls/hr IV DAILY [facility] Stop: 03/15/23 08:59 Azithromycin 500 mg/ Sodium (Chloride) 250 mls @ 250 mls/hr IV DAILY [facility] Stop: 03/14/23 08:59 Last Admin: 03/11/23 11:23 Dose: 250 mls/hr Methylprednisolone Sodium Succinate (Methylprednisolone Sod Succ/Pf 40 Mg/Ml Vial) 40 mg IVP Q8HR [facility] Last Admin: 03/11/23 21:10 Dose: 40 mg Metoprolol Succinate (Metoprolol Succinate 50 Mg Tab.Er.24h) 50 mg PO DAILY [facility] Last Admin: 03/11/23 17:48 Dose: 50 mg Morphine Sulfate (Morphine Sulfate 2 Mg/Ml Syringe) 2 mg IVP Q6H PRN PRN Reason: Pain Last Admin: 03/11/23 16:47 Dose: 2 mg Non-Formulary Medication (Camphor-Methyl Salicyl-Menthol [Salonpas]) 1 patch TP QAM [facility] Ondansetron HCl (Ondansetron Hcl/Pf 4 Mg/2 Ml Sdv) 4 mg IVP Q6H PRN PRN Reason: Nausea / Vomiting Pregabalin (Pregabalin 50 Mg Capsule) 50 mg PO BID [facility] Last Admin: 03/11/23 20:52 Dose: 50 mg Sodium Chloride (0.9% Sodium Chloride 10 Ml Disp.Syrin) 1 syr IVF PRN PRN PRN Reason: To flush IV Tramadol HCl (Tramadol Hcl 50 Mg Tablet) 50 mg PO Q8H PRN PRN Reason: Pain Discontinued Medications Albuterol/Ipratropium (Ipratropium/Albuterol Vial.Neb) 3 ml NEB ONCE ONE Stop: 03/11/23 06:49 Last Admin: 03/11/23 06:50 Dose: 3 ml Albuterol/Ipratropium (Ipratropium/Albuterol Vial.Neb) 3 ml NEB ONCE ONE Stop: 03/11/23 07:40 Last Admin: 03/11/23 07:46 Dose: 3 ml Enoxaparin Sodium (Enoxaparin Sodium 40 Mg/0.4 Ml Syr) 40 mg SUBCUT ONCE STA Stop: 03/11/23 20:25 Last Admin: 03/11/23 21:11 Dose: 40 mg Furosemide (Furosemide Inj 20 Mg/2 Ml Vial) 20 mg IVP ONCE ONE Stop: 03/11/23 14:59 Last Admin: 03/11/23 15:19 Dose: 20 mg Furosemide (Furosemide Inj 20 Mg/2 Ml Vial) 20 mg IVP ONCE ONE Stop: 03/11/23 19:05 Last Admin: 03/11/23 19:43 Dose: 20 mg Hydralazine HCl (Hydralazine Hcl 20 Mg/Ml Sdv) 10 mg IVP ONCE ONE Stop: 03/11/23 08:04 Last Admin: 03/11/23 08:10 Dose: 10 mg CEFTRIAXONE/D5W 1 GM PREMIX (Rocephin 1 Gm/50 Ml D5w) 1 gm in 50 mls @ 100 mls/hr IV ONCE ONE Stop: 03/11/23 09:48 Last Admin: 03/11/23 09:30 Dose: 100 mls/hr Lorazepam (Lorazepam Inj 2 Mg/Ml Vial) 1 mg IVP ONCE ONE Stop: 03/11/23 08:28 Last Admin: 03/11/23 08:31 Dose: 1 mg Methylprednisolone Sodium Succinate (Methylprednisolone Sod Succ/Pf 125 Mg/2 Ml Vial) 125 mg IVP ONCE ONE Stop: 03/11/23 07:40 Last Admin: 03/11/23 07:50 Dose: 125 mg Metoprolol Succinate (Metoprolol Succinate 50 Mg Tab.Er.24h) 50 mg PO DAILY DOUG Nitroglycerin (Nitroglycerin 1 Gm Oint) 0.5 inch TD ONCE ONE Stop: 03/11/23 06:55 Last Admin: 03/11/23 07:00 Dose: 0.5 inch Nitroglycerin (Nitroglycerin 1 Gm Oint) 0.5 inch TD ONCE STA Stop: 03/11/23 06:56 Last Admin: 03/11/23 07:00 Dose: Not Given Tramadol HCl (Tramadol Hcl 50 Mg Tablet) 50 mg PO Q8H PRN PRN Reason: Pain Opioid Naive vs. Tolerant Does Patient Take Opioids?: Yes Is Patient Opioid Naive?: No What is Opioid Naive?: *Opioid Naive implies the patient is not already taking opioids or not chronically receiving opioids on a daily basis. *PRN dosing is not "usually" associated with tolerance. *Patients are at higher risk of over-sedation and aspiration. Is Patient Opioid Tolerant?: No What is Opioid Tolerant?: *Opioid Tolerance implies less than the expected response to an opioid. *Acquired tolerance is defined by the patient taking 60mg of oral morphine daily (or equianalgesic dose of another opioid) for 1 week or more. *Often associated with chronic pain. *May take more than usual dose to achieve desired pain control. Physical examination Most Recent Vital Signs: Most Recent Vital Signs Temperature 98.3 F 03/11/23 10:02 Temperature Source Axillary 03/11/23 10:02 Temperature Source Infrared 03/11/23 06:32 Pulse Rate 110 H 03/11/23 10:02 Respiratory Rate 18 03/11/23 10:02 Blood Pressure 244/111 H 03/11/23 06:32 Blood Pressure Left Arm 156/69 03/11/23 10:02 Blood Pressure Position Supine 03/11/23 10:02 O2 Sat by Pulse Oximetry 100 03/11/23 10:02 Oxygen Delivery Method Bi-pap 03/11/23 10:33 Fraction of Inspired Oxygen (FIO2) 100 03/11/23 07:20 Height 5 ft 2 in 03/11/23 10:02 Weight 94 lb 03/11/23 10:02 Telemetry Type Bedside Monitor 03/11/23 10:15 Telemetry Monitoring Started 03/11/23 10:15 Telemetry Heart Rate 115 H 03/11/23 10:15 Telemetry SPO2 95 03/28/22 07:00 EKG CO Interval 0.12 03/11/23 10:15 EKG QRS Interval 0.08 03/11/23 10:15 Telemetry Strip Reading Sinus Tach 03/11/23 10:15 Appearance: Positive Ill-Appearing, Thin and Cachectic Skin: Positive Warm and Good Color HEENT: Positive Normocephalic and PERRLA Neck: Positive Supple and Midline Trachea Chest/Lungs: Positive Symmetrical With Equal Breath Sounds and Rhonci (throughout lung muniz) Heart: Positive RRR and Pulses Normal GI/: Positive Soft, Nontender, Bowel Sounds Normal and No Distention Musculoskeletal: Positive Not Examined Extremities: Positive Intact Peripheral Pulses, Stable Joints Without Laxity and Good ROM in All Joints Neurological: Positive Sensation Intact, Motor intact, Reflexes Intact and Other (lethargic, arouses to verbal stimuli, able to answer simple questions and follow commands, generalized weakness noted) Labs This Visit Labs This Visit: Labs This Visit 03/11/23 03/11/23 03/11/23 06:52 06:58 07:09 WBC 17.61 H RBC 3.17 L Hgb 9.9 L Hct 33.0 L MCV 104.1 H MCH 31.2 H MCHC 30.0 L RDW Coeff of Beth 12.6 Plt Count 380 Immature Gran % (Auto) 0.7 Neut % (Auto) 59.4 Lymph % (Auto) 28.8 [place] % (Auto) 7.8 Eos % (Auto) 2.5 Baso % (Auto) 0.8 Neut # (Auto) 10.4 H Lymph # (Auto) 5.1 H [place] # (Auto) 1.4 Eos # (Auto) 0.4 Baso # (Auto) 0.1 Immature Gran # (Auto) 0.1 PT 9.8 INR 0.94 Puncture Site Lbrach Base Excess -8.3 L O2 Saturation 99.6 H ABG pH 7.21 L* ABG pCO2 49.0 H ABG pO2 215.0 H ABG HCO3 19.6 L ABG Total CO2 21.1 Boaz Test N/a Hemoglobin 1.5 Oxyhemoglobin 95.3 Carboxyhemoglobin 2.6 H Total Hemoglobin 10.4 L FiO2 % 100.0 Sodium 136.8 Potassium 5.54 H Chloride 106.2 Carbon Dioxide 20.7 L Anion Gap 15.44 BUN 22.2 H Creatinine 1.63 H Estimated GFR (MDRD) 31.00 BUN/Creatinine Ratio 13.61 Glucose 385.9 H Lactic Acid 2.95 H Calcium 9.17 Total Bilirubin 0.16 L AST 34.6 ALT 20.2 Alkaline Phosphatase 79.2 Troponin I 0.015 NT-Pro-B Natriuret Pep 37616 H Total Protein 7.29 Albumin 3.79 Globulin 3.50 Albumin/Globulin Ratio 1.08 Procalcitonin 0.09 Influ A Molecular Assay Negative by naat Influ B Molecular Assay Negative by naat RSV Antigen Negative by naat SARS CoV-2 RNA Rapid KAYLENE Negative Blood Type O POSITIVE Antibody Screen Negative 03/11/23 03/11/23 09:10 10:04 WBC RBC Hgb Hct MCV MCH MCHC RDW Coeff of Beth Plt Count Immature Gran % (Auto) Neut % (Auto) Lymph % (Auto) [place] % (Auto) Eos % (Auto) Baso % (Auto) Neut # (Auto) Lymph # (Auto) [place] # (Auto) Eos # (Auto) Baso # (Auto) Immature Gran # (Auto) PT INR Puncture Site Rrad Base Excess -1.9 O2 Saturation 98.5 H ABG pH 7.35 ABG pCO2 43.0 ABG pO2 120.0 H ABG HCO3 23.7 ABG Total CO2 25.0 H Boaz Test Pos Hemoglobin 1.1 Oxyhemoglobin 96.3 Carboxyhemoglobin 1.6 H Total Hemoglobin 10.0 L FiO2 % 50.0 Sodium Potassium Chloride Carbon Dioxide Anion Gap BUN Creatinine Estimated GFR (MDRD) BUN/Creatinine Ratio Glucose Lactic Acid 1.35 D Calcium Total Bilirubin AST ALT Alkaline Phosphatase Troponin I NT-Pro-B Natriuret Pep Total Protein Albumin Globulin Albumin/Globulin Ratio Procalcitonin Influ A Molecular Assay Influ B Molecular Assay RSV Antigen SARS CoV-2 RNA Rapid KAYLENE Blood Type Antibody Screen Imaging Imaging: EXAM: CHEST ONE-VIEW PORTABLE UPRIGHT HISTORY: Difficulty breathing COMPARISON: The 04/30/2022 FINDINGS: L bilateral interstitial pulmonary opacities are present. This may be either pneumonia or interstitial edema. Cardiac silhouette is mildly enlarged. Vascular calcifications present in the aortic arch. Cardiac monitoring leads are present. IMPRESSION: Bilateral interstitial opacities. Differential considerations include interstitial edema or interstitial pneumonia. Review Statement Review Statement: I have independently reviewed and interpreted the labs/EKGs/imaging that were ordered by the ER provider. I have reviewed all outside records that are available currently in our EMR including imaging/notes/labs from previous visits. Plan Plan: 1. Acute Hypoxic Respiratory Failure in setting of COPD Exacerbation and CAP vs Interstitial edema - wean off bipap as tolerated, repeat abg at 1300, steroids, nebs 2. CAP/COPD Exacerbation - rocephin/azith, respiratory panel ordered, mrsa, l egionella, strep pneumo pending, steroids, nebs 3. CHF - unknown type, holding bumex due to NPO status, will re-eval plan after CT chest to determine if pulm edema present 4. CKD - appears at baseline, monitor 5. Hyperkalemia - received IVF in the ER, recheck BMP@1500, will give lokelma if no improvement 6. Anemia, chronic - no signs of active bleeding, follows with hematology, monitor 7. Hypertension - received hydralazine and nitro paste in ER, removed nitro paste, hydralazine ordered prn while npo, will resume BP meds when off BIPAP DVT Prophylaxis: Lovenox Time Spent: Greater than 80 minutes spent with patient, 50% of the time spent with this patient was devoted to counseling and coordination of care. [facility] minutes spent discussing advance care planning. Smoking Cessation: 5 minutes spent discussing smoking cessation. Disposition: Admit to: Med/Surg Inpatient FULL CODE Discussed Plan of Care with Dr. Nick Strong. Medications Medication Orders: Medications Ordered Category Date Time Status 0.9 % Sodium Chloride [Saline Flush] Meds 03/11/23 06:48 Active 1 syr IVF PRN PRN Acetaminophen [Tylenol] Meds 03/11/23 10:37 Active 650 mg PO Q4H PRN Azithromycin Inj [Zithromax] 500 mg Meds 03/11/23 11:00 Active 0.9 % Sodium Chloride [Sodium Chloride] 250 ml IV DAILY Ceftriaxone/D5w 1 gm Premix [Rocephin 1 gm/50 ml D5w] Meds 03/12/23 09:00 Active 1 gm in 50 ml IV DAILY Enoxaparin Sodium [Lovenox] Meds 03/12/23 09:00 Active 30 mg SUBCUT DAILY Hydralazine HCl Meds 03/11/23 10:42 Active 10 mg IVP Q6H PRN Methylprednisolone Sod Succ/Pf [Solu-Medrol 40 mg] Meds 03/11/23 13:00 Active 40 mg IVP Q8HR Morphine Sulfate [Morphine 2 mg/ml Syringe] Meds 03/11/23 10:42 Active 2 mg IVP Q6H PRN Ondansetron HCl/Pf [Zofran 4 mg/2 ml] Meds 03/11/23 10:42 Active 4 mg IVP Q6H PRN
[2023-03-11] MEDS ORDERED: ZITHROMAX 500 MG in SODIUM CHLORIDE 250 ML IV SCH (11:00)
[2023-03-11] MEDS ORDERED: ALBUTEROL 0.083% NEB NEB PRN (11:14)
[2023-03-11 11:56] LABS: BILIRUBIN,URINE Negative (NEGATIVE); CLARITY,URINE Clear (CLEAR); COLOR,URINE Yellow (YELLOW); GLUCOSE, URINE (UA) Negative (NEGATIVE); KETONES,URINE Negative (NEGATIVE); LEUKOCYTE ESTERASE ,URINE Negative (NEGATIVE); NITRITE,URINE Negative (NEGATIVE); PROTEIN,URINE Trace (NEGATIVE); URINE, BLOOD Negative (NEGATIVE); UROBILINOGEN,URINE 0.2 (0.2)
[2023-03-11 12:52] LABS: ABG O2 HGB 96.4 % (95-100); ABG PH 7.39 (7.35-7.45); BEecf -1.4 (-2.0-3.0); COHb 1.6 (0.5-1.5); HCO3 23.6 (21-28); MetHb 1.1 (0-1.5); TCO2 24.8 (19-24); sO2 98.4 % (94-98); tHb 9.5 g/dl (11.7-17.4)
[2023-03-11 13:15] LABS: BORDETELLA PARAPERTUSSIS (PCR) NOT DETECTED (NOT DETECT); BORDETELLA PERTUSSIS (PCR) NOT DETECTED (NOT DETECT); CHLAMYDIA PNEUMONIAE (PCR) NOT DETECTED (NOT DETECT); CORONAVIRUS 229E (PCR) NOT DETECTED (NOT DETECT); CORONAVIRUS HKU1 (PCR) NOT DETECTED (NOT DETECT); CORONAVIRUS NL63 (PCR) NOT DETECTED (NOT DETECT); CORONAVIRUS OC43 (PCR) NOT DETECTED (NOT DETECT); HUMAN METAPNEUMOVIRUS (PCR) NOT DETECTED (NOT DETECT); HUMAN RHINOVIRUS/ENTEROV (PCR) NOT DETECTED (NOT DETECT); INFLUENZA B (PCR) NOT DETECTED (NOT DETECT); MYCOPLASMA PNEUMONIAE (PCR) NOT DETECTED (NOT DETECT); PARAINFLUENZA VIRUS 1 (PCR) NOT DETECTED (NOT DETECT); PARAINFLUENZA VIRUS 2 (PCR) NOT DETECTED (NOT DETECT); PARAINFLUENZA VIRUS 3 (PCR) NOT DETECTED (NOT DETECT); PARAINFLUENZA VIRUS 4 (PCR) NOT DETECTED (NOT DETECT); RESPIRATORY SYNCYTIAL V (PCR) NOT DETECTED (NOT DETECT); SARS_COV_2 (PCR) NOT DETECTED (NOT DETECT)
[2023-03-11] MEDS: DUONEB NEB SCH ×2 (13:32→17:23)
[2023-03-11 14:09] LABS: ADENOVIRUS (PCR) NOT DETECTED (NOT DETECT)
[2023-03-11] MEDS: SOLU-MEDROL 40 MG IVP SCH ×2 (14:32→21:10)
--- NOTE | 2023-03-11 14:56 | CT ---
EXAM: CHEST CT WITHOUT CONTRAST HISTORY: Shortness of breath. TECHNIQUE: CT acquisition of the chest from the thoracic inlet to the upper abdomen without IV contra st administration. 2-D coronal and sagittal reformatted images were obtained from the axial source i mages. IV Contrast: None. CT Dose Reduction Techniques Performed: Yes. COMPARISON: 08/18/2019. FINDINGS: Lines, Tubes, Devices: Stent graft in the proximal abdominal aorta. Lung Parenchyma and Airways: Central airways are patent without endobronchial lesion. Atelectasis at the lung bases posteriorly. Diffuse bronchial wall thickening at the lung bases posteriorly. Spicu lated nodule in the right middle lobe laterally measuring 1.0 x 0.7 cm on axial image 34 and coronal image 42; not present on 08/18/2019. No other pulmonary nodule or mass lesion. Pleural Space: Small bilateral pleural effusions with left larger than right. No pneumothorax. Thoracic Inlet, Mediastinum, and Haley: Thyroid gland is normal. No lymphadenopathy. Heart, Vessels, and Pericardium: The main pulmonary artery is normal caliber. The thoracic aorta is not dilated. Calcification in the aorta consistent with atherosclerosis. Coronary artery calcificat ion. The heart chambers are not enlarged. There is no pericardial effusion or thickening. Bones and Soft Tissues: Accentuated kyphosis of the thoracic spine. No fracture or lytic lesion. De generative changes of the mid thoracic spine with disc space narrowing, vacuum disc phenomenon, and o steophytes. Chest wall soft tissues are unremarkable. Upper Abdomen: The visualized portions of the liver, spleen, and adrenals are normal. Extensive calc ified plaque in the proximal abdominal aorta with stent graft visualized at this site. IMPRESSION: 1. New spiculated nodule in the right middle lobe laterally measuring 1.0 cm. PET scan or biopsy sh ould be considered. 2. Atelectasis at the lung bases posteriorly. 3. Diffuse bronchial wall thickening at the lung bases posteriorly consistent with chronic bronchiti s. 4. Small bilateral pleural effusions with left larger than right. 5. Atherosclerosis and coronary artery calcification. 6. Degenerative changes of the thoracic spine and accentuated kyphosis. 7. Stent graft in the proximal abdominal aorta at the site of extensive calcified plaque. 8. Otherwise unremarkable noncontrast CT scan of the chest. All CT scans are performed using dose optimization techniques as appropriate to the performed exam an d include at least one of the following: Automated exposure control, adjustment of the mA and/or kV according t o size, and the use of iterative reconstruction technique.
[2023-03-11] MEDS ORDERED: LASIX IVP ONE ×2 (14:58→19:04)
[2023-03-11 15:32] LABS: BLOOD UREA NITROGEN 29.2 mg/dL (7-17); CALCIUM 8.98 mg/dL (8.4-10.2); CARBON DIOXIDE 22.4 mmol/L (22-30.0); CREATININE 2.37 mg/dL (0.60-1.30); POTASSIUM 5.57 mmol/L (3.5-5.1); SODIUM 138.4 mmol/L (134.5-145)
[2023-03-11] MEDS ORDERED: LOKELMA PO ONE (16:05)
[2023-03-11] MEDS ORDERED: NEURONTIN PO PRN (17:08)
[2023-03-11] MEDS ORDERED: ULTRAM PO PRN ×2 (17:08→17:34)
[2023-03-11 17:22] VITALS: BP 157/67; TEMP 98.4
[2023-03-11] MEDS ORDERED: TOPROL XL PO SCH (17:45)
[2023-03-11 18:09] LABS: ABG O2 HGB 96.3 % (95-100); ABG PH 7.34 (7.35-7.45); BEecf -3.7 (-2.0-3.0); COHb 1.7 (0.5-1.5); HCO3 22.1 (21-28); MetHb 1.2 (0-1.5); TCO2 23.4 (19-24); tHb 9.9 g/dl (11.7-17.4)
[2023-03-11 18:47] LABS: PARTIAL THROMBOPLASTIN TIME 26.8 SEC (23.9-40.0); PROTHROMBIN TIME 9.9 SEC (9.3-11.0)
[2023-03-11] MEDS ORDERED: LOVENOX SUBCUT STA (20:24)
[2023-03-11] MEDS ORDERED: LYRICA PO SCH (21:00)
[2023-03-11] MEDS ORDERED: MUCINEX PO SCH (21:00)
--- NOTE | 2023-03-11 21:25 | PCM.SS ---
Provider Provider[facility] KATIA ANDRADE, [facility] Ad[facility] Date Admission Date: 03/11/23 Discharge Date Discharge Date: 03/11/23 Primary Care Physician Primary Care Physician: BENEDICT ANGEL PA-C Chief Complaint Reason For Visit: COPD EXACERBATION; PNEUMONIA History of Present Illness History of Present Illness: Admitted 03/11/23 09:40, 77 yo female presented to the ER with family with complaints of shortness of breath. Family reports patient worked yesterday and was not complaining of any problems until she called her around 6 am this morning. She was unable to walk or do anything at that time. Family carried patient to car to get to the ER. On arrival, she was 83% on RA and BP was 200s/100s. She was placed on a non-rebreather and then BIPAP. Work-up showed interstitial edema vs pneumonia on chest x-ray. Repeat abgs showed improvement on BIPAP and is on 50% FiO2 at this time maintaining a sat of 99-100%. BNP was found to be elevated but clinically does not appear to be overloaded at this time. Family reports she has questionable history of CHF but takes bumex as needed for edema. Has pmh of COPD and current every day smoker. She is supposed to wear oxygen at home but refuses. Patient unable to provide HPI due to work of breathing. [facility] Medical History Acute hypokalemia E87.6 - Hypokalemia (ICD-10) Acute dehydration E86.0 - Dehydration (ICD-10) GUNNER (acute kidney injury) N17.9 - Acute kidney failure, unspecified (ICD-10) Encounter for Medicare annual wellness exam Z00.00 - Encounter for general adult medical examination without abnormal findings (ICD-10) Peripheral edema 2+ edema to mid morales and 1+ to knee. Would recommend bumex 1mg daily x 5 days. Daily weight. Monitor salts/intake. DASH diet. Daily weights documented. R60.9 - Edema, unspecified (ICD-10) Bladder mass N32.89 - Other specified disorders of bladder (ICD-10) C. difficile colitis A04.72 - Enterocolitis due to Clostridium difficile, not specified as recurrent (ICD-10) History of acute renal failure Z87.448 - Personal history of other diseases of urinary system (ICD-10) Edema R60.9 - Edema, unspecified (ICD-10) Hospital discharge follow-up Z09 - Encounter for follow-up examination after completed treatment for conditions other than malignant neoplasm (ICD-10) Bladder mass N32.89 - Other specified disorders of bladder (ICD-10) History of recent hospitalization Z92.89 - Personal history of other medical treatment (ICD-10) Former tobacco use quit 2-3 weeks ago Z87.891 - Personal history of nicotine dependence (ICD-10) On supplemental oxygen by nasal cannula Z78.9 - Other specified health status (ICD-10) Hypomagnesemia E83.42 - Hypomagnesemia (ICD-10) Acute exacerbation of chronic obstructive pulmonary disease J44.1 - Chronic obstructive pulmonary disease with (acute) exacerbation (ICD-10) Hypokalemia E87.6 - Hypokalemia (ICD-10) Fatigue R53.83 - Other fatigue (ICD-10) Medicare annual wellness visit, subsequent Z00.00 - Encounter for general adult medical examination without abnormal findings (ICD-10) Depression F32.9 - Major depressive disorder, single episode, unspecified (ICD-10) Surgical History History of heart artery stent Z95.5 - Presence of coronary angioplasty implant and graft (ICD-10) History of vascular surgery (~01/2018) lower extremity bypass sx Dr Cruz 01/2018 Z98.890 - Other specified postprocedural states (ICD-10) Status post hysterectomy 1976 Z90.710 - Acquired absence of both cervix and uterus (ICD-10) Family History Mother , CHF CHF (congestive heart failure) SISTER , fell and hit her head. 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 Special tesha needs: No Agree to transfusion: Yes Adopted: No Caregiver/support person: No Foster care: No Household members: family and other Other Household Members: granddaughter Housing: house Marital status: W / Lives independently: No Daycare: no daycare Number of children: 2 Number of grandchildren: 6 Highest education level completed: GED or equivalent Financial difficulty paying for basics: not very hard service: No FPC: No Current occupational status: employed Current occupation: [employer] Current occupational exposures/hazards: No Previous occupational history: [employer] for over 30 years Pets and animals: Yes (cats dog hermit crabs) Leisure activites: other History of recent travel: No Sexually active: No Do you think of yourself as: straight/heterosexual Current gender identity: female Seatbelt use: always Helmet use: No Drives intoxicated or rides with intoxicated trackless trolley driver: No Current diet type/program: regular Water heater temperature set < 120 degrees: Yes Working smoke detector in home: Yes Fire extinguisher in home: Yes Carbon monoxide detector in home: Yes Firearms in home: No Medications Mecications: Medications at Discharge (Home Meds & RX) camphor 3.1 %-methyl salicylate 10 %-menthol 6 % topical patch (Salonpas) 1 patch topical QAM 01/07/19 albuterol sulfate 90 mcg/actuation aerosol inhaler (Ventolin HFA) 2 puff inhalation Q4-6H PRN shortness of breath or wheezing #18 grams 03/31/22 metoprolol succinate 50 mg tablet,extended release 24 hr 50 mg PO QDAY 05/08/22 budesonide-formoterol HFA 160 mcg-4.5 mcg/actuation aerosol inhaler (Symbicort) 2 puff inhalation BID #10.2 grams 10/23/22 bumetanide 1 mg tablet 1 mg PO QDAY PRN >3# weight gain in 72 hours #30 tabs 10/23/22 duloxetine 30 mg capsule,delayed release 30 mg PO QDAY #14 caps 10/23/22 atorvastatin 10 mg tablet 10 mg PO BEDTIME 10/27/22 gabapentin 300 mg capsule 300 mg PO TID PRN pain 12/18/22 acetaminophen 325 mg tablet (Pain Relief (acetaminophen)) 650 mg PO Q4-6H PRN PAIN/FEVER 03/11/23 albuterol sulfate 2.5 mg/3 mL (0.083 %) solution for nebulization 2.5 mg NEB QID PRN shortness of breath 03/11/23 guaifenesin 1,200 mg tablet, extended release 12 hr (Mucinex) 1,200 mg PO BID 03/11/23 pregabalin 50 mg capsule 50 mg PO BID 03/11/23 tramadol 50 mg tablet 50 mg PO Q8H PRN pain 03/11/23 Allergies Allergies Allergy/AdvReac Type Severity Reaction Status Date / Time sulfamethoxazole Allergy Mild See Verified 03/11/23 06:49 [From Bactrim] comment bubble trimethoprim [From Bactrim] Allergy Mild See Verified 03/11/23 06:49 comment bubble amlodipine [From Norvasc] AdvReac Intermediate peripheral Verified 03/11/23 06:49 edema Physical Examination Appearance: Positive Ill-Appearing, Thin and Cachectic Head: Positive Normocephalic Eyes: Positive RUSLAN Neck: Positive Supple, Non-Tender and Trachea Midline Heart: Positive RRR and No Murmurs Respiratory: Positive Airway patent, Breath Sounds Equal, Respirations Nonlabored and Rhonchi GI/: Positive Soft, Nontender, Bowel sounds normal and No Distention Neurological: Positive Alert to Verbal, Alert to Pain and Other (lethargic, able to follow basic commands and answer yes or no to questions) Vital Signs (Last 4 Hours) Vital Signs Last 4 Hours: Vital Signs: Last 4 Hours 03/11/23 17:21 03/11/23 18:00 03/11/23 18:19 Temperature 98.4 F Temperature Source Oral Pulse Rate 136 H Respiratory Rate 28 H Blood Pressure 157/67 H Blood Pressure Mean 97 Blood Pressure Location Left Arm Blood Pressure Position Supine O2 Sat by Pulse Oximetry 95 98 98 Oxygen Delivery Method Nasal Cannula Bi-pap Oxygen Flow Rate 2 Fraction of Inspired Oxygen (FIO2) 36 36 Labs This Visit Labs This Visit: Labs This Visit 03/11/23 03/11/23 03/11/23 06:52 06:58 07:09 WBC 17.61 H RBC 3.17 L Hgb 9.9 L Hct 33.0 L MCV 104.1 H MCH 31.2 H MCHC 30.0 L RDW Coeff of Beth 12.6 Plt Count 380 Immature Gran % (Auto) 0.7 Neut % (Auto) 59.4 Lymph % (Auto) 28.8 Gates % (Auto) 7.8 Eos % (Auto) 2.5 Baso % (Auto) 0.8 Neut # (Auto) 10.4 H Lymph # (Auto) 5.1 H Gates # (Auto) 1.4 Eos # (Auto) 0.4 Baso # (Auto) 0.1 Immature Gran # (Auto) 0.1 PT 9.8 INR 0.94 APTT Puncture Site Lbrach Base Excess -8.3 L O2 Saturation 99.6 H ABG pH 7.21 L* ABG pCO2 49.0 H ABG pO2 215.0 H ABG HCO3 19.6 L ABG Total CO2 21.1 Boaz Test N/a Hemoglobin 1.5 Oxyhemoglobin 95.3 Carboxyhemoglobin 2.6 H Total Hemoglobin 10.4 L O2 Delivery Device FiO2 % 100.0 Sodium 136.8 Potassium 5.54 H Chloride 106.2 Carbon Dioxide 20.7 L Anion Gap 15.44 BUN 22.2 H Creatinine 1.63 H Estimated GFR (MDRD) 31.00 BUN/Creatinine Ratio 13.61 Glucose 385.9 H Lactic Acid 2.95 H Calcium 9.17 Total Bilirubin 0.16 L AST 34.6 ALT 20.2 Alkaline Phosphatase 79.2 Troponin I 0.015 NT-Pro-B Natriuret Pep 75110 H Total Protein 7.29 Albumin 3.79 Globulin 3.50 Albumin/Globulin Ratio 1.08 Procalcitonin 0.09 D-Dimer Urine Color Urine Clarity Urine pH Ur Specific Norman Urine Protein Urine Glucose (UA) Urine Ketones Urine Blood Urine Nitrite Urine Bilirubin Urine Urobilinogen Ur Leukocyte Esterase Ur Squamous Epith Cells Adenovirus (PCR) B. pertussis DNA (PCR) B.parapertussis DNA PCR C. pneumoniae DNA (PCR) Coronavirus OC43 (PCR) Coronavirus HKU1 (PCR) Coronavirus 229E (PCR) Coronavirus NL63 (PCR) Human Metapneumovir PCR Influenza Type A (PCR) Influ A Molecular Assay Negative by naat Influenza B (RT-PCR) Influ B Molecular Assay Negative by naat M. pneumoniae (PCR) Parainfluenza 1 (PCR) Parainfluenza 2 (PCR) Parainfluenza 3 (PCR) Parainfluenza 4 (PCR) RSV Antigen Negative by naat RSV (PCR) Entero/Rhino (PCR) SARS-CoV-2 (PCR) SARS CoV-2 RNA Rapid KAYLENE Negative Miscellaneous Test Blood Type O POSITIVE Antibody Screen Negative 03/11/23 03/11/23 03/11/23 09:10 10:04 11:16 WBC RBC Hgb Hct MCV MCH MCHC RDW Coeff of Ebth Plt Count Immature Gran % (Auto) Neut % (Auto) Lymph % (Auto) Gates % (Auto) Eos % (Auto) Baso % (Auto) Neut # (Auto) Lymph # (Auto) Gates # (Auto) Eos # (Auto) Baso # (Auto) Immature Gran # (Auto) PT INR APTT Puncture Site Rrad Base Excess -1.9 O2 Saturation 98.5 H ABG pH 7.35 ABG pCO2 43.0 ABG pO2 120.0 H ABG HCO3 23.7 ABG Total CO2 25.0 H Boaz Test Pos Hemoglobin 1.1 Oxyhemoglobin 96.3 Carboxyhemoglobin 1.6 H Total Hemoglobin 10.0 L O2 Delivery Device FiO2 % 50.0 Sodium Potassium Chloride Carbon Dioxide Anion Gap BUN Creatinine Estimated GFR (MDRD) BUN/Creatinine Ratio Glucose Lactic Acid 1.35 D Calcium Total Bilirubin AST ALT Alkaline Phosphatase Troponin I NT-Pro-B Natriuret Pep Total Protein Albumin Globulin Albumin/Globulin Ratio Procalcitonin D-Dimer Urine Color Yellow Urine Clarity Clear Urine pH 6.0 Ur Specific Norman 1.020 Urine Protein Trace H Urine Glucose (UA) Negative Urine Ketones Negative Urine Blood Negative Urine Nitrite Negative Urine Bilirubin Negative Urine Urobilinogen 0.2 Ur Leukocyte Esterase Negative Ur Squamous Epith Cells 10-20 Adenovirus (PCR) B. pertussis DNA (PCR) B.parapertussis DNA PCR C. pneumoniae DNA (PCR) Coronavirus OC43 (PCR) Coronavirus HKU1 (PCR) Coronavirus 229E (PCR) Coronavirus NL63 (PCR) Human Metapneumovir PCR Influenza Type A (PCR) Influ A Molecular Assay Influenza B (RT-PCR) Influ B Molecular Assay M. pneumoniae (PCR) Parainfluenza 1 (PCR) Parainfluenza 2 (PCR) Parainfluenza 3 (PCR) Parainfluenza 4 (PCR) RSV Antigen RSV (PCR) Entero/Rhino (PCR) SARS-CoV-2 (PCR) SARS CoV-2 RNA Rapid KAYLENE Miscellaneous Test Sent to [facility] Blood Type Antibody Screen 03/11/23 03/11/23 03/11/23 12:45 13:10 15:14 WBC RBC Hgb Hct MCV MCH MCHC RDW Coeff of Beth Plt Count Immature Gran % (Auto) Neut % (Auto) Lymph % (Auto) Gates % (Auto) Eos % (Auto) Baso % (Auto) Neut # (Auto) Lymph # (Auto) Gates # (Auto) Eos # (Auto) Baso # (Auto) Immature Gran # (Auto) PT INR APTT Puncture Site Rrad Base Excess -1.4 O2 Saturation 98.4 H ABG pH 7.39 ABG pCO2 39.0 ABG pO2 114.0 H ABG HCO3 23.6 ABG Total CO2 24.8 H Boaz Test Pos Hemoglobin 1.1 Oxyhemoglobin 96.4 Carboxyhemoglobin 1.6 H Total Hemoglobin 9.5 L O2 Delivery Device Bipap FiO2 % 36.0 Sodium 138.4 Potassium 5.57 H Chloride 107.0 Carbon Dioxide 22.4 Anion Gap 14.57 BUN 29.2 H Creatinine 2.37 H D Estimated GFR (MDRD) 20.00 BUN/Creatinine Ratio 12.32 Glucose 140.0 H D Lactic Acid Calcium 8.98 Total Bilirubin AST ALT Alkaline Phosphatase Troponin I NT-Pro-B Natriuret Pep Total Protein Albumin Globulin Albumin/Globulin Ratio Procalcitonin D-Dimer Urine Color Urine Clarity Urine pH Ur Specific Norman Urine Protein Urine Glucose (UA) Urine Ketones Urine Blood Urine Nitrite Urine Bilirubin Urine Urobilinogen Ur Leukocyte Esterase Ur Squamous Epith Cells Adenovirus (PCR) Not detected B. pertussis DNA (PCR) Not detected B.parapertussis DNA PCR Not detected C. pneumoniae DNA (PCR) Not detected Coronavirus OC43 (PCR) Not detected Coronavirus HKU1 (PCR) Not detected Coronavirus 229E (PCR) Not detected Coronavirus NL63 (PCR) Not detected Human Metapneumovir PCR Not detected Influenza Type A (PCR) Not detected Influ A Molecular Assay Influenza B (RT-PCR) Not detected Influ B Molecular Assay M. pneumoniae (PCR) Not detected Parainfluenza 1 (PCR) Not detected Parainfluenza 2 (PCR) Not detected Parainfluenza 3 (PCR) Not detected Parainfluenza 4 (PCR) Not detected RSV Antigen RSV (PCR) Not detected Entero/Rhino (PCR) Not detected SARS-CoV-2 (PCR) Not detected SARS CoV-2 RNA Rapid KAYLENE Miscellaneous Test Blood Type Antibody Screen 03/11/23 03/11/23 18:05 18:23 WBC RBC Hgb Hct MCV MCH MCHC RDW Coeff of Beth Plt Count Immature Gran % (Auto) Neut % (Auto) Lymph % (Auto) Gates % (Auto) Eos % (Auto) Baso % (Auto) Neut # (Auto) Lymph # (Auto) Gates # (Auto) Eos # (Auto) Baso # (Auto) Immature Gran # (Auto) PT 9.9 INR 0.95 APTT 26.8 Puncture Site Rrad Base Excess -3.7 L O2 Saturation 98.0 ABG pH 7.34 L ABG pCO2 41.0 ABG pO2 110.0 H ABG HCO3 22.1 ABG Total CO2 23.4 Boaz Test Pos Hemoglobin 1.2 Oxyhemoglobin 96.3 Carboxyhemoglobin 1.7 H Total Hemoglobin 9.9 L O2 Delivery Device Bipap FiO2 % 36.0 Sodium Potassium Chloride Carbon Dioxide Anion Gap BUN Creatinine Estimated GFR (MDRD) BUN/Creatinine Ratio Glucose Lactic Acid Calcium Total Bilirubin AST ALT Alkaline Phosphatase Troponin I NT-Pro-B Natriuret Pep Total Protein Albumin Globulin Albumin/Globulin Ratio Procalcitonin D-Dimer 1333.79 H Urine Color Urine Clarity Urine pH Ur Specific Norman Urine Protein Urine Glucose (UA) Urine Ketones Urine Blood Urine Nitrite Urine Bilirubin Urine Urobilinogen Ur Leukocyte Esterase Ur Squamous Epith Cells Adenovirus (PCR) B. pertussis DNA (PCR) B.parapertussis DNA PCR C. pneumoniae DNA (PCR) Coronavirus OC43 (PCR) Coronavirus HKU1 (PCR) Coronavirus 229E (PCR) Coronavirus NL63 (PCR) Human Metapneumovir PCR Influenza Type A (PCR) Influ A Molecular Assay Influenza B (RT-PCR) Influ B Molecular Assay M. pneumoniae (PCR) Parainfluenza 1 (PCR) Parainfluenza 2 (PCR) Parainfluenza 3 (PCR) Parainfluenza 4 (PCR) RSV Antigen RSV (PCR) Entero/Rhino (PCR) SARS-CoV-2 (PCR) SARS CoV-2 RNA Rapid KAYLENE Miscellaneous Test Blood Type Antibody Screen Imaging Imaging: EXAM: CHEST ONE-VIEW PORTABLE UPRIGHT HISTORY: Difficulty breathing COMPARISON: The 04/30/2022 FINDINGS: L bilateral interstitial pulmonary opacities are present. This may be either pneumonia or interstitial edema. Cardiac silhouette is mildly enlarged. Vascular calcifications present in the aortic arch. Cardiac monitoring leads are present. IMPRESSION: Bilateral interstitial opacities. Differential considerations include interstitial edema or interstitial pneumonia. EXAM: CHEST CT WITHOUT CONTRAST HISTORY: Shortness of breath. TECHNIQUE: CT acquisition of the chest from the thoracic inlet to the upper abdomen without IV contrast administration. 2-D coronal and sagittal reformatted images were obtained from the axial source images. IV Contrast: None. CT Dose Reduction Techniques Performed: Yes. COMPARISON: 08/18/2019. FINDINGS: Lines, Tubes, Devices: Stent graft in the proximal abdominal aorta. Lung Parenchyma and Airways: Central airways are patent without endobronchial lesion. Atelectasis at the lung bases posteriorly. Diffuse bronchial wall thickening at the lung bases posteriorly. Spiculated nodule in the right middle lobe laterally measuring 1.0 x 0.7 cm on axial image 34 and coronal image 42; not present on 08/18/2019. No other pulmonary nodule or mass lesion. Pleural Space: Small bilateral pleural effusions with left larger than right. No pneumothorax. Thoracic Inlet, Mediastinum, and Haley: Thyroid gland is normal. No lymphadenopathy. Heart, Vessels, and Pericardium: The main pulmonary artery is normal caliber. The thoracic aorta is not dilated. Calcification in the aorta consistent with atherosclerosis. Coronary artery calcification. The heart chambers are not enlarged. There is no pericardial effusion or thickening. Bones and Soft Tissues: Accentuated kyphosis of the thoracic spine. No fracture or lytic lesion. Degenerative changes of the mid thoracic spine with disc space narrowing, vacuum disc phenomenon, and osteophytes. Chest wall soft tissues are unremarkable. Upper Abdomen: The visualized portions of the liver, spleen, and adrenals are normal. Extensive calcified plaque in the proximal abdominal aorta with stent graft visualized at this site. IMPRESSION: 1. New spiculated nodule in the right middle lobe laterally measuring 1.0 cm. PET scan or biopsy should be considered. 2. Atelectasis at the lung bases posteriorly. 3. Diffuse bronchial wall thickening at the lung bases posteriorly consistent with chronic bronchitis. 4. Small bilateral pleural effusions with left larger than right. 5. Atherosclerosis and coronary artery calcification. 6. Degenerative changes of the thoracic spine and accentuated kyphosis. 7. Stent graft in the proximal abdominal aorta at the site of extensive calcified plaque. 8. Otherwise unremarkable noncontrast CT scan of the chest. Review Review Statement: I have independently reviewed and interpreted the labs/EKGs/imaging that were ordered by the ER provider. I have reviewed all outside records that are av ailable currently in our EMR including imaging/notes/labs from previous visits. Plan Reccomendations/Plan: Initially, patient was on BIPAP at 50% FiO2 tolerating well. She was weaned off to 2L via NC by 1300. Around 1800, patient O2 sat dropped down into the 80s despite NC oxygen. She was placed back on BIPAP and abg was obtained which showed no change from previous without abnormalities. Heart rate continues to fluctuate between 110s-140s at times - sinus rhythm. All viral swabs negative. Started on azithromycin and rocephin to cover for pneumonia in addition to steroids and nebs. CT chest obtained after admission to the floor with no acute findings. Patient was found to be hyperkalemic due to CKD. She was given fluids in the ER. Repeat bmp this afternoon showed worsening hyperkalemia and creatinine went from 1.6 to 2.4. She also has had minimal urine output. Myers catheter in place due to work of breathing. BNP in ER was found to be 43718l. A dose of 20 mg of lasix was given on floor and no urine output following. Additional dose was given around 1944. Family reported possible pmh of CHF. Last echo completed at [facility] 05/01 which showed EF of 65-70%. Unable to complete new echo due to physician being out of town. Due to worsening condition including hypoxia, tachycardia, and elevated D-dimer, concern for PE noted, Unable to complete CTA due to renal function. Unable to complete VQ scan until Thursday. Contacted [facility], [facility], [place], and [facility] and no ICU or step-down beds were available. Spoke with Dr. Enriquez - Hospitalist at [facility] who accepted the patient under his care. Additional Planning: Case discussed with ED Physician, Dr. Donnelly. DVT Prophylaxis: Lovenox Smoking Cessation: 5 minutes spent discussing smoking cessation. Disposition: Admit to: Med/surg Inpatient Full Code Discussed Plan of Care with Dr. Nick Strong. If patient discharged with Left Ventricular Systolic Dysfunction: NA Discharged with a beta shaila? [] If no, why not? [] Discharged with an latonya/arb? [] If no, why not? [] Review With Patient Reviewed with Patient and Family: Patient and family have been counseled on condition and care plan and have no i mmediate questions. I have personally discussed and reviewed the patient's visit/current labs/imaging/decision making with Dr. Angel Strong, my supervising attending. Total number of minutes spent with patient 85 min. More than 50% of the time spent with this patient was devoted to counseling and coordination of care. Time of Admission:03/11/23 09:40 Time of Discharge: 03/11/23 21:00 Discharge Plan Discharge Discharge Orders: Discharge Patient (ONCE); Ordered 03/11/23 Ordered By: MOLLY MARK Patient Disposition: TSF SHORT-TRM HOSP Prescriptions: No Action Salonpas 3.1-10-6 % Adhesive Patch,Medicated 1 patch TOPICAL QAM Rx Instructions: Apply to Low Back atorvastatin 10 mg tablet 10 mg PO BEDTIME Patient Comments: TAKE 1 TABLET BY MOUTH DAILY AT BEDTIME pregabalin 50 mg capsule 50 mg PO BID tramadol 50 mg tablet 50 mg PO Q8H PRN (Reason: pain) Patient Comments: TAKE 1 TABLET BY MOUTH EVERY 8 HOURS NEEDED FOR PAIN guaifenesin [Mucinex] 1,200 mg tablet extended release 12hr 1,200 mg PO BID acetaminophen [Pain Relief (acetaminophen)] 325 mg tablet 650 mg PO Q4-6H PRN (Reason: PAIN/FEVER) albuterol sulfate 2.5 mg /3 mL (0.083 %) solution for nebulization 2.5 mg NEB QID PRN (Reason: shortness of breath) Rx Instructions: DX: J44.1 albuterol sulfate [Ventolin HFA] 90 mcg/actuation HFA aerosol inhaler 2 puff IH Q4-6H PRN (Reason: shortness of breath or wheezing) Qty: 18 5RF metoprolol succinate 50 mg tablet extended release 24 hr 50 mg PO QDAY budesonide-formoterol [Symbicort] 160-4.5 mcg/actuation HFA aerosol inhaler 2 puff inhalation BID Qty: 10.2 0RF bumetanide 1 mg tablet 1 mg PO QDAY PRN (Reason: >3# weight gain in 72 hours) Qty: 30 0RF Rx Instructions: Check daily weight. IF >3# gain in 72 hours take #1 tablet x 5 days. duloxetine 30 mg capsule,delayed release(DR/EC) 30 mg PO QDAY Qty: 14 0RF gabapentin 300 mg capsule 300 mg PO TID PRN (Reason: pain) Rx Instructions: IF OUT OF TRAMADOL SHE TAKES Did you review [place] [employer] for ALL controlled substances?: No Discussed opioids are addictive and Narcan is available by prescription or from pharmacy.: No Condition: Stable
[2023-03-11 21:52] VITALS: PULSE 111; RESP 20
[2023-03-12] MEDS ORDERED: NON-FORMULARY MEDICATION (Camphor-Methyl Salicyl-Menthol [Salonpas] 3.1-10-6 % Adhesive Pa TP SCH (09:00)
[2023-03-12] MEDS ORDERED: TOPROL XL PO SCH (09:00)
[2023-03-12] MEDS ORDERED: ROCEPHIN 1 GM/50 ML D5W 1 GM/50 ML BAG IV SCH (09:00)
[2023-03-12] MEDS ORDERED: LOVENOX SUBCUT SCH (09:00)
== END 2023-03-11 21:06 | disposition short-term general hospital (02) | DRG 190 ==
LOC: ED 06:28 → SCU 06:28 → OBSVTOIN 09:40 → SCU 10:17
PROVIDERS: ADMIT Hospitalist; ATTEND Nurse Practitioner Family
DX: J81.0 Acute pulmonary edema; R09.02 Hypoxemia; R91.1 Solitary pulmonary nodule; J44.9 Chronic obstructive pulmonary disease, unspecified; I25.10 Atherosclerotic heart disease of native coronary artery without angina pectoris; J44.1 Chronic obstructive pulmonary disease with (acute) exacerbation; J18.9 Pneumonia, unspecified organism; R79.1 Abnormal coagulation profile; I50.23 Acute on chronic systolic (congestive) heart failure; I13.0 Hypertensive heart and chronic kidney disease with heart failure and stage 1 through stage 4 chronic kidney disease, or unspecified chronic kidney disease; R33.9 Retention of urine, unspecified